=== PATIENT | male | born 1950 | race Caucasian/White ===

== ENCOUNTER → 2020-08-31 10:32 | Outpatient (BNVA) | payer BC, SELFPAY | PROVIDERS: PCP Internal Medicine; Visit Provider Internal Medicine | DX: I48.92 Unspecified atrial flutter (principal); I25.10 Atherosclerotic heart disease of native coronary artery without angina pectoris; I10 Essential (primary) hypertension; E11.8 Type 2 diabetes mellitus with unspecified complications | CPT/HCPCS: 93005 ==

== ENCOUNTER → 2021-08-15 12:52 | Outpatient (REF) | payer MEDICARE, SELFPAY ==
--- NOTE | 2021-08-15 12:55 | CA_ITS ---
Transthoracic Echocardiogram Patient (Last, First, Middle): Ian Chapman, Gender: Male Date of : 1950 Age: 70 Procedure Date: 08/15/2021 Procedure Type: Transthoracic Echocardiogram Location: OP Height: 182.88 cm Weight: 91.63 kg BSA: 2.14 m2 Heart Rate: bpm BP: 147 / 72 mmHg [employer] Processor: SB Referring MD: Rich Mera MD Symptoms: I48.92 - Unspecified atrial flutter Study Quality: Fair ECG Rhythm: Sinus Conclusions: - The left ventricular systolic function is normal. The calculated ejection fraction is 56% by biplane method. - There is severe septal asymmetric hypertrophy. - There is mild calcification of the aortic valve. Findings Left Ventricle Normal left ventricular cavity size. The left ventricular systolic function is normal. The calculated ejection fraction is 56% by biplane method. There is no evidence of regional wall motion abnormalities. E/E prime ratio is between 8 and 15 consistent with indeterminate filling pressures. Evidence suggests grade I (mild) diastolic dysfunction. There is severe septal asymmetric hypertrophy. LV peak GLS -17.5%. Right Ventricle Normal right ventricular cavity size and systolic function. Atria Mild biatrial enlargement. Aortic Valve There is a normal trileaflet aortic valve. There is mild calcification of the aortic valve. There is no aortic valve stenosis. There is no aortic valve regurgitation. Mitral Valve The mitral valve appears normal. There is mild mitral valve regurgitation. There is no mitral valve stenosis. Pulmonic Valve The pulmonic valve is likely normal. Tricuspid Valve Normal tricuspid valve structure. There is no tricuspid valve regurgitation. Tricuspid regurgitation envelope is inadequate for calculation of right ventricular systolic pressure. Great Vessels Ascending aortic size, top normal at 3.9 cm. Venous The inferior vena cava is normal in size and collapses greater than 50% with inspiration. Pericardium/Pleural There is no evidence of pericardial effusion. Prior Study Comparison Changes noted compared to prior study dated: 09/01/2018. Increase in septal wall thickness. Measurements 2D Linear Measurements IVSd: 1.57 0.6-0.9/0.6-1.0 cm LVIDd: 5.08 3.9-5.3/4.2-5.9 cm LVIDd Index: 2.37 2.4-3.2/2.2-3.1 cm/m2 LVIDs: 3.09 2.0-3.6 cm LVPWd: 0.66 0.7-1.1 cm LA Diam: 4.30 2.7-3.8/3.0-4.0 cm LAIDs Index: 2.01 1.5-2.3 cm/m2 LV Mass: 270.40 67-162/88-224 g LV Mass Index: 126.36 43-95/49-115 g/m2 LVOT Diam: 2.00 3.0+(-)1.3 cm 2D Systolic Function EF 4C: 58.50 >55% EF 2C: 50.60 >55% EF BiP: 55.60 >55% Mitral Valve MV Pk E: 0.87 MV PK A: 0.76 MV Decel Time: 181.00 E/A: 1.10 E'Lateral: 8.39 E'Medial: 5.59 E/E' Med: 15.50 E/E' Lat: 10.30 PHT: 53.00 MVA PHT: 4.15 Decel [place]: 4.79 Aortic Valve AoV Pk Armando: 1.42 AoV Mn Armando: 1.08 AoV VTI: 0.33 AoV Pk Grad: 8.00 Aov Mn Grad: 5.00 ROQUE Cont.VTI: 1.85 LVOT LVOT Pk Armando: 0.86 LVOT Mn Armando: 0.64 LVOT VTI: 0.20 LVOT Pk Grad: 3.00 LVOT Mn Grad: 2.00 LVOT Diam: 2.00 LVOT Area: 3.14 Diastolic Function MV Pk E: 0.87 MV Pk A: 0.76 E/A: 1.10 E'Medial: 5.59 E/E' Med: 15.50 E' Laterial: 8.39 E/E' Lat: 10.30 Right Ventricle TAPSE (mm): 33.20 TVS' Armando: 13.40 Tricuspid Valve RA Press: 8.00 Great Vessels Aorta Sinus of Valsalva: 4.23 2.0-3.[address] [place]: 3.66 1.7-3.4 cm Ao Asc: 3.90 2.1-3.4 cm Pulmonary Veins Pulm Vein S/D 0.80 Pulmonary Valve PV Pk Armando: 0.63 Peak PV Grad: 2.00 Updated in Other Vendor System with Status of Final Rich Mera MD electronically signed on 08/16/2021 12:10:01 PM with status of Final
== END ==
LOC: HO.CARD 12:52
PROVIDERS: PCP Internal Medicine; Visit Provider Internal Medicine
DX: I48.92 Unspecified atrial flutter (principal)
CPT/HCPCS: 93306

== ENCOUNTER → 2021-08-31 10:40 | Outpatient (BNVA) | payer MEDICARE, SELFPAY | PROVIDERS: PCP Internal Medicine; Referring Provider Internal Medicine; Visit Provider Internal Medicine | DX: I48.92 Unspecified atrial flutter (principal); I25.10 Atherosclerotic heart disease of native coronary artery without angina pectoris; I10 Essential (primary) hypertension; I42.2 Other hypertrophic cardiomyopathy; E11.8 Type 2 diabetes mellitus with unspecified complications | CPT/HCPCS: 93005; 99212 ==

== ENCOUNTER → 2021-09-13 09:02 | Outpatient (REF) | payer MEDICARE, SELFPAY ==
--- NOTE | ~2021-09-13 | NM_ITS ---
Lexiscan Myocardial perfusion study Indication: Coronary artery disease; assess for ischemia Technique: The patient was brought in for a Lexiscan perfusion study on 09/13/2021 and was injected 0.4 mg of Lexiscan intravenously. Within a minute of this injection 30 mCi of sestamibi was given intravenously. Images were obtained using the SPECT gamma camera interlaced with the gating device. Images were obtained in supine position. Resting perfusion study was performed on 09/14/2021. Patient was administered 30 mCi of sestamibi intravenously at rest. Images were then obtained in supine position. Total DLP 96mGy-cm. Images were processed with the software and compared side to side in short axis, horizontal long axis and vertical long axis views. Findings: Raw acquisition was reviewed. The stress perfusion study showed diminished tracer uptake in the basal part of inferior wall, inferior septum; there is some improvement with CT attenuation correction and hence there could be components of diaphragmatic attenuation artifact. The gated study shows normal LV systolic function with calculated LVEF of 57%. LV cavity is normal in size. The gated study shows basal inferior hypokinesis. Resting study shows diminished tracer uptake in the basal part of inferior wall, inferior septum. There is improvement with CT attenuation correction and hence there could be components of diaphragmatic attenuation artifact. Gating at rest reveals LVEF 47%; basal inferior/inferoseptal hypokinesis. The findings are consistent with fixed defect in the basal inferior wall/inferoseptal wall. There is also improvement with CT attenuation correction. No reversible defects. NM/NM cardiolite stress test Impression: 1. Myocardial perfusion imaging study shows infarction in the basal inferior/inferoseptal wall. No ischemia. 2. Gated LVEF is 57% during stress; 47% during rest. 3. Transient ischemic dilatation not present. EKG component of the test reported separately.
--- NOTE | 2021-09-13 09:05 | CA_ITS ---
Acquisition Time: 2021-09-13 09:24:05 Total Exercise Time: 00:02:00 Test Indications: CAD Medications: SEE CHART Protocol: LEXISCAN Max HR: 085 BPM 57% of Pred: 148 BPM Max BP: 140/074 mmHG Max Work Load: 1.6 METS Pharmacological stress test with Lexiscan injection, while walking slow on treadmill, without anginal symptoms, without arrythmia, with normotensive response to injection, with nondiagnostic EKG for ischemia. Nuclear images pending. Test reviewed with Dr Lau. Referred By: Rich Mera Overread By: ASHER DOCKERY
== END ==
LOC: HO.CARD 09:02
PROVIDERS: PCP Internal Medicine; Visit Provider Internal Medicine
DX: I25.10 Atherosclerotic heart disease of native coronary artery without angina pectoris (principal)
CPT/HCPCS: 78452; 93017; A9500; J2785

== ENCOUNTER → 2022-06-18 14:59 | Outpatient (BNVA) | payer MEDICARE, SELFPAY | PROVIDERS: PCP Internal Medicine; Visit Provider Hospitalist | DX: J84.10 Pulmonary fibrosis, unspecified (principal); J18.9 Pneumonia, unspecified organism; T78.40XA Allergy, unspecified, initial encounter | CPT/HCPCS: 99202 ==

== ENCOUNTER 2022-06-29 10:44 | Outpatient (REF) | payer MEDICARE, SELFPAY ==
[2022-06-29 12:09] LABS: MANUAL DIFF FLAG NO
--- NOTE | 2022-06-29 13:07 | PFT_ITS ---
INDICATION: COPD. SPIROMETRY: FEV1 to FVC of 80% with an FEV1 of 2.67 L, which is 78% predicted and FVC of 3.33 L, which is 71% predicted. No significant response to bronchodilator is noted. To note, the [id number] down to 70% predicted, pre bronchodilators. The maximum voluntary ventilation is 67% predicted. LUNG VOLUMES: Total lung capacity 82% predicted. DIFFUSION CAPACITY: DLCO 55% predicted. COMPARISON: None. INTERPRETATION: No obstructive nor restrictive ventilatory defect identified. No significant response to bronchodilators noted. Although, the patient does have some evidence of small airways disease. In addition to that, there is some mild decrease in maximum voluntary ventilation secondary to likely decondition. Lung volumes are low normal and the patient does have a moderate diffusion impairment. Further imaging studies may be warranted, consider methacholine challenge if a diagnosis of asthma is in the differential. Angel Nixon MD MR/MODL / [id number]
[2022-06-29 14:06] LABS: Basophils Absolute Auto 0.1 X10*3/uL (0.0-0.2); Basophils Percent Auto 1.1 % (0-2); Eosinophils Absolute Auto 0.3 X10*3/uL (0.0-0.4); Eosinophils Percent Auto 4.1 % (0-4); Hematocrit 35.4 % (42.0-52.0); Hemoglobin 12.6 g/dl (14.0-18.0); Imm Gran Abs Auto 0.04 X10*3/uL (0.00-0.03); Imm Gran Pct Auto 0.5 % (0.0-0.4); Lymphocytes Absolute Auto 1.9 X10*3/uL (1.2-4.9); Lymphocytes Percent Auto 22.6 % (20-40); Mean Corpuscular HGB Conc 35.6 g/dl (31.0-36.0); Mean Corpuscular Hemoglobin 31.4 pg (27.0-33.0); Mean Corpuscular Volume 88.3 fL (80.0-98.0); Mean Platelet Volume 11.7 fL (9.4-12.4); Monocytes Absolute Auto 0.8 X10*3/uL (0.1-1.2); Neutrophils Absolute Auto 5.3 x10*3/uL (2.0-8.3); Neutrophils Percent Auto 62.7 % (45-73); Platelet Count 170 X10*3/uL (160-400); Red Blood Count 4.01 X10*6/uL (4.60-5.80); Red Cell Distribution Width 12.7 % (11.0-16.0); White Blood Count 8.4 X10*3/uL (4.8-10.8)
[2022-06-29 14:48] LABS: Erythrocyte Sedimentation Rate 39 MM/HR (0-15)
[2022-07-02 15:28] LABS: Anti Nuclear Antibody Screen NEGATIVE (NEGATIVE)
[2022-07-02 15:59] LABS: Cyclic Citrullinated Peptide <16 UNITS
[2022-07-04 14:33] LABS: IgA 225 mg/dL (70-320); IgG 1299 mg/dL (600-1540); IgM 315 mg/dL (50-300)
== END 2022-06-29 10:45 | disposition home or self-care (01) ==
LOC: HO.RESP 10:44
PROVIDERS: PCP Internal Medicine; Visit Provider Hospitalist
DX: J18.9 Pneumonia, unspecified organism (principal); J84.10 Pulmonary fibrosis, unspecified; T78.40XA Allergy, unspecified, initial encounter
CPT/HCPCS: 36415; 82784; 82785; 85025; 85652; 86003; 86038; 86039; 86200; 94060; 94727; 94729

== ENCOUNTER 2022-07-06 13:01 | Outpatient (REF) | payer MEDICARE, SELFPAY ==
--- NOTE | ~2022-07-06 | CT_ITS ---
EXAMINATION: CT CHEST WITHOUT CONTRAST CLINICAL INFORMATION: Pneumonia COMPARISON: None available. TECHNIQUE: Multidetector volumetric CT imaging of the chest was done. Axial MIP volume rendering provided. Sagittal and coronal reformatted images were obtained. This CT examination was performed using dose optimization techniques as appropriate, variously including the following: *Automated exposure control *Adjustment of mA and/or kV according to patient size (this includes techniques or standardized protocols for targeted exams where dose is matched to indication/reason for exam; i.e. extremities or head) *Use of iterative reconstruction technique DLP: 170 mGy-cm FINDINGS: NEUROSURGEON: The lungs are well inflated with moderate linear opacity right midlung. LUNGS: The lungs are well-expanded with multiple 1 mm noncalcified nodule left upper lobe, axial image 146/5, 4 mm noncalcified nodule right upper lobe axial image 146/5, 1 mm nodules bilateral upper lobes axial image 146/5, 1 mm calcified nodule right upper lobe axial image 204/5, several clusters of 1 cm less nodules with focal parenchymal opacity in the right upper lobe, likely infiltrate. Also visualized are several 1 mm and less calcified nodules in both lower lobes and right middle lobe likely small granulomas. Focal parenchymal opacities seen in the left lung base adjacent to the diaphragm likely infiltrate as well. MEDIASTINUM: The central trachea and bronchi are widely patent. Heart size and the great vessels are normal caliber. No pericardial effusion seen. There are small shotty lymph nodes in the pretracheal space. CORONARY ARTERY CALCIFICATION: Moderate coronary artery calcifications are present. PLEURA: There is no pleural effusion. No pleural mass or thickening. AXILLA: No lymphadenopathy. UPPER ABDOMEN: Visualized liver, spleen, pancreas and bilateral adrenal glands are unremarkable. There are multiple radiopaque gallstones without wall thickening. There is a 2.9 cm cyst upper midpole right kidney. OSSEOUS STRUCTURES: No aggressive lytic or sclerotic process seen. CT/CT chest wo IV con IMPRESSION: 1. Multiple bilateral calcified and noncalcified pulmonary nodules. The largest noncalcified nodule measures 4 mm in the right upper lobe. 2. There are focal parenchymal opacities in the right lower lobe and left lower lobe adjacent to the diaphragm likely infiltrates. 3. No abnormal mediastinal or axillary lymphadenopathy seen. 4. Cholelithiasis without wall thickening. 5. Right renal cyst. Fleischner guidelines were followed.
== END 2022-07-06 13:02 | disposition home or self-care (01) ==
LOC: HO.CT 13:01
PROVIDERS: PCP Internal Medicine; Visit Provider Hospitalist
DX: J18.9 Pneumonia, unspecified organism (principal)
CPT/HCPCS: 71250

== ENCOUNTER → 2022-07-27 14:30 | Outpatient (BNVA) | payer MEDICARE, SELFPAY | PROVIDERS: PCP Internal Medicine; Visit Provider Hospitalist | DX: J84.10 Pulmonary fibrosis, unspecified (principal); J18.9 Pneumonia, unspecified organism; T78.40XA Allergy, unspecified, initial encounter | CPT/HCPCS: 99212 ==

== ENCOUNTER → 2022-09-06 10:45 | Outpatient (BNVA) | payer MEDICARE, SELFPAY | PROVIDERS: PCP Internal Medicine; Referring Provider Internal Medicine; Visit Provider Internal Medicine | DX: I48.92 Unspecified atrial flutter (principal); I25.10 Atherosclerotic heart disease of native coronary artery without angina pectoris; I42.2 Other hypertrophic cardiomyopathy; I10 Essential (primary) hypertension; E11.8 Type 2 diabetes mellitus with unspecified complications; Z79.01 Long term (current) use of anticoagulants; Z79.84 Long term (current) use of oral hypoglycemic drugs; Z79.899 Other long term (current) drug therapy | CPT/HCPCS: 93005; 99212 ==

== ENCOUNTER 2022-09-11 14:49 | Outpatient (REF) | payer MEDICARE, SELFPAY ==
--- NOTE | ~2022-09-11 | XR_ITS ---
EXAMINATION: XR CHEST CLINICAL INFORMATION: Pneumonia COMPARISON: Previous chest x-ray July [address] June 2022 TECHNIQUE: 2 views of the chest were obtained. FINDINGS: The cardiac and mediastinal contours are stable. There is improving atelectasis or infiltrate seen in the right upper lobe and left lower lobe compared to recent chest CT. No new infiltrate. The lungs are otherwise clear. No pleural effusion or pneumothorax. Mild degenerative changes of the spine. Air-filled distended loops of bowel seen in the upper abdomen. XR/XR chest 2V IMPRESSION: Improving infiltrates in the right upper and left lower lobes compared to June [address]
== END 2022-09-11 14:50 | disposition home or self-care (01) ==
LOC: HO.XRAY 14:49
PROVIDERS: Visit Provider Hospitalist
DX: J18.9 Pneumonia, unspecified organism (principal)
CPT/HCPCS: 71046

== ENCOUNTER 2022-09-20 12:49 | Outpatient (REF) | payer MEDICARE, SELFPAY ==
[2022-09-20 13:33] LABS: Hematocrit 33.9 % (42.0-52.0); Hemoglobin 12.1 g/dl (14.0-18.0); Mean Corpuscular HGB Conc 35.7 g/dl (31.0-36.0); Mean Corpuscular Hemoglobin 31.5 pg (27.0-33.0); Mean Corpuscular Volume 88.3 fL (80.0-98.0); Mean Platelet Volume 11.8 fL (9.4-12.4); Platelet Count 162 X10*3/uL (160-400); Red Blood Count 3.84 X10*6/uL (4.60-5.80); Red Cell Distribution Width 13.1 % (11.0-16.0); White Blood Count 9.7 X10*3/uL (4.8-10.8)
[2022-09-20 13:41] LABS: INTERNATIONAL NORM RATIO 1.2 (0.9-1.1)
[2022-09-20 14:00] LABS: Anion Gap 13 (12-20); Blood Urea Nitrogen 29 mg/dL (9-16); Calcium 9.5 mg/dL (8.4-10.2); Carbon Dioxide 26 mmol/L (22-29); Chloride 104 mmol/L (96-108); Estimated Glomerular Filt Rate 41; Glucose Random 148 mg/dL (60-115); Potassium 4.2 mmol/L (3.3-5.1); Sodium 139 mmol/L (135-145)
== END 2022-09-20 12:50 | disposition home or self-care (01) ==
LOC: HO.LAB 12:49
PROVIDERS: PCP Internal Medicine; Visit Provider Internal Medicine
DX: I25.10 Atherosclerotic heart disease of native coronary artery without angina pectoris (principal)
CPT/HCPCS: 36415; 80048; 85027; 85610

== ENCOUNTER → 2022-10-12 07:52 | Outpatient (REF) | payer MEDICARE, SELFPAY ==
--- NOTE | 2022-10-12 07:56 | CA_ITS ---
Transthoracic Echocardiogram Patient (Last, First, Middle): Ian Chapman C Gender: Male Date of : 1950 Age: 72 Procedure Date: 10/12/2022 Procedure Type: Transthoracic Echocardiogram Location: OP Height: 182.88 cm Weight: 91.17 kg BSA: 2.13 m2 Heart Rate: 59 bpm BP: 130 / 70 mmHg Director [employer]: SB Referring MD: Rich Mera MD Symptoms: I25.10 - Atherosclerotic heart disease of [place] coronary artery without... Study Quality: Fair ECG Rhythm: Bradycardia Conclusions: - The left ventricular systolic function is normal. The calculated ejection fraction is 57% by biplane method. - The basal inferior and basal inferolateral segments are hypokinetic. - No obvious valvular pathology seen on this study. Findings Procedure Information The quality of the study was technically difficult. The study quality is limited by patients body habitus. Left Ventricle Normal left ventricular cavity size. The left ventricular systolic function is normal. The calculated ejection fraction is 57% by biplane method. There is evidence of regional wall motion abnormalities. Diastolic function is normal for age. There is severe septal and severe basal asymmetric hypertrophy. LV peak GLS -16.3%. Wall Motion Rest Echo Findings The basal inferior and basal inferolateral segments are hypokinetic. Right Ventricle Normal right ventricular cavity size and systolic function. Atria Both atria are normal in size. Aortic Valve There is a normal trileaflet aortic valve. There is mild calcification of the aortic valve. There is no aortic valve regurgitation. Mitral Valve The mitral valve appears normal. There is trace mitral valve regurgitation. There is no mitral valve stenosis. Pulmonic Valve The pulmonic valve is likely normal. Tricuspid Valve Normal tricuspid valve structure. There is no tricuspid valve regurgitation. Tricuspid regurgitation envelope is inadequate for calculation of right ventricular systolic pressure. Great Vessels The asc aorta is normal in size. There is mild dilatation of the ascending aorta measuring 3.90 cm. Venous The inferior vena cava is normal in size and collapses greater than 50% with inspiration. Pericardium/Pleural There is no evidence of pericardial effusion. Prior Study Comparison No significant change compared to prior study dated: 08/15/2021. (images reviewed). Recommendations, Care & Conclusions No obvious valvular pathology seen on this study. Measurements 2D Linear Measurements IVSd: 1.34 0.6-0.9/0.6-1.0 cm LVIDd: 4.67 3.9-5.3/4.2-5.9 cm LVIDd Index: 2.19 2.4-3.2/2.2-3.1 cm/m2 LVIDs: 3.25 2.0-3.6 cm LVPWd: 0.64 0.7-1.1 cm LA Diam: 4.60 2.7-3.8/3.0-4.0 cm LAIDs Index: 2.16 1.5-2.3 cm/m2 LV Mass: 200.06 67-162/88-224 g LV Mass Index: 93.92 43-95/49-115 g/m2 LVOT Diam: 2.40 3.0+(-)1.3 cm 2D Systolic Function EF 4C: 59.10 >55% EF 2C: 56.70 >55% EF BiP: 57.30 >55% Mitral Valve MV VTI: 0.30 MV Pk Armando: 0.91 MV Mn Armando: 0.60 MV Pk Grad: 3.00 MV Mn Grad: 2.00 MV Pk E: 0.82 MV PK A: 0.91 MV Decel Time: 241.00 E/A: 0.90 E'Lateral: 7.07 E'Medial: 7.51 E/E' Med: 10.90 E/E' Lat: 11.60 PHT: 71.00 MVA PHT: 3.10 MVA Continuity: 3.60 Decel [place]: 3.40 Aortic Valve AoV Pk Armando: 1.63 AoV Mn Armando: 1.14 AoV VTI: 0.39 AoV Pk Grad: 11.00 Aov Mn Grad: 6.00 ROQUE Cont.VTI: 2.79 LVOT LVOT Pk Armando: 1.02 LVOT Mn Armando: 0.71 LVOT VTI: 0.24 LVOT Pk Grad: 4.00 LVOT Mn Grad: 2.00 LVOT Diam: 2.40 LVOT Area: 4.52 Diastolic Function MV Pk E: 0.82 MV Pk A: 0.91 E/A: 0.90 E'Medial: 7.51 E/E' Med: 10.90 E' Laterial: 7.07 E/E' Lat: 11.60 Right Ventricle TAPSE (mm): 20.90 TVS' Armando: 14.50 Tricuspid Valve RA Press: 3.00 Great Vessels Aorta Sinus of Valsalva: 4.40 2.0-3.5 cm Ao Asc: 3.90 2.1-3.4 cm Pulmonary Veins Pulm Vein S/D 1.30 Pulmonary Valve PV Pk Armando: 0.99 Peak PV Grad: 4.00 Updated in Other Vendor System with Status of Final Rich Mera MD electronically signed on 10/14/2022 9:32:57 AM with status of Final
== END ==
LOC: HO.CARD 07:52
PROVIDERS: PCP Internal Medicine; Visit Provider Internal Medicine
DX: I25.10 Atherosclerotic heart disease of native coronary artery without angina pectoris (principal)
CPT/HCPCS: 93306; 93356

== ENCOUNTER 2022-10-17 09:40 | Outpatient (REF) | payer MEDICARE, SELFPAY ==
--- NOTE | ~2022-10-17 | US_ITS ---
EXAMINATION: US LOWER EXTREMITY VENOUS (REFLUX EXAM), BILATERAL CLINICAL INDICATION: Venous insufficiency COMPARISON: None. TECHNIQUE: Color flow triplex imaging and compression Doppler was performed to evaluate both the deep and the superficial systems bilaterally. To evaluate the superficial system, the examination was performed in the upright position. Color-flow Doppler ultrasound and compression ultrasound were utilized. In addition, maneuvers were utilized to demonstrate reflux. FINDINGS: RIGHT: 1. DEEP VENOUS ULTRASOUND OF THE RIGHT LOWER EXTREMITY: Common Femoral Vein: Compressible, normal respiratory variation and augmented flow. Popliteal Vein: Compressible, normal augmentation. Deep Venous Reflux: There is no evidence of reflux in the deep system in either the common femoral vein or the popliteal vein. There is no evidence of a Christopher's cyst. 2. SUPERFICIAL ULTRASOUND WITH DOPPLER OF RIGHT LOWER EXTREMITY: RIGHT GREAT SAPHENOUS VEIN: Saphenofemoral Junction: 7 mm. No reflux. Proximal Thigh: 5 mm. No reflux. Mid Thigh: 3 mm. 35165 ms reflux. Above Knee: 3 mm. 57567 ms reflux. Below Knee: 4 mm. 16385 ms reflux. Mid Calf: 2 mm. No reflux. Ankle: 3 mm. 864 reflux. DUPLICATED GREAT SAPHENOUS VEIN: Yes, lateral Saphenofemoral junction: 2 mm. No reflux Mid thigh: 2 mm. 84 ms of reflux. RIGHT SMALL SAPHENOUS VEIN: Proximal: 3 mm. No reflux. Distal: 3 mm. No reflux. Scattered calcifications present. PERFORATORS: None LEFT: 1. DEEP VENOUS ULTRASOUND OF THE LEFT LOWER EXTREMITY: Common Femoral Vein: Compressible, normal respiratory variation and augmented flow. Popliteal Vein: Compressible, normal augmentation. Deep Venous Reflux: There is no evidence of reflux in the deep system in either the common femoral vein or the popliteal vein. There is no evidence of a Christopher's cyst. 2. SUPERFICIAL ULTRASOUND WITH DOPPLER OF LEFT LOWER EXTREMITY: LEFT GREAT SAPHENOUS VEIN: Saphenofemoral Junction: 8 mm. No reflux. Proximal Thigh: 7 mm. No reflux. Mid Thigh: 2 mm. No reflux. Above Knee: 2 mm. No reflux. Below Knee: 5 mm. No reflux. Mid Calf: 2 mm. No reflux. Ankle: 2 mm. No reflux. DUPLICATED GREAT SAPHENOUS VEIN: Yes, laterally Saphenofemoral junction: 4 mm. No reflux Mid thigh: 2 mm. No reflux LEFT SMALL SAPHENOUS VEIN: Proximal: 3 mm. No reflux. Distal: 3 mm. No reflux. Scattered calcifications present. PERFORATORS: None US/US venous duplex LE BI IMPRESSION: 1. Abnormally prolonged venous reflux within the right great saphenous and lateral accessory saphenous veins. 2. No evidence of DVT, bilaterally. Abnormal lower extremity venous reflux times: Superficial and deep calf veins: >500 ms Femoropopliteal veins: >1000 ms Perforating veins: >350 ms Derrek N, Surya J, Rob L, Estefania AK, Rojas SS, Geo Kearney M, Candi WH. Definition of venous reflux in lower-extremity veins.J Vasc Surg. 2003; [phone]:[id number].
--- NOTE | ~2022-10-17 | US_ITS ---
EXAMINATION: US EXTRACRANIAL CAROTID DUPLEX, BILATERAL CLINICAL INFORMATION: Carotid bruit. COMPARISON: None available. TECHNIQUE: Real-time ultrasound and Doppler techniques (integrating B-mode 2-D vascular images, Doppler spectral analysis and color-flow Doppler imaging) were utilized to interrogate the extracranial carotid arteries, the vertebral arteries and proximal subclavian arteries bilaterally. The degree of stenosis is determined by criteria similar to NASCET. FINDINGS: Right Side: 1. There is mild atherosclerotic plaque seen in the bifurcation/proximal ICA region. 2. The common carotid artery PSV proximally is 65 cm/s and distally 45 cm/s. 3. The proximal internal carotid artery velocities are 36 cm/s systolic and 11 cm/s diastolic. 4. The proximal external carotid artery PSV is 69 cm/s. 5. The vertebral artery shows antegrade flow. 6. The subclavian artery waveforms are normal. Left Side: 1. There is mild atherosclerotic plaque seen in the bifurcation/proximal ICA region. 2. The common carotid artery PSV proximally is 67 cm/s and distally 53 cm/s. 3. The proximal internal carotid artery velocities are 29 cm/s systolic and 10 cm/s diastolic. 4. The proximal external carotid artery PSV is 76 cm/s. 5. The vertebral artery shows antegrade flow. 6. The subclavian artery waveforms are normal. US/US carotid duplex BI IMPRESSION: RIGHT: Minimal, non-hemodynamically significant stenosis of the proximal right internal carotid artery corresponding to a 0-49% stenosis by velocity criteria. Velocity in the ICA is low. LEFT: Minimal, non-hemodynamically significant stenosis of the proximal left internal carotid artery corresponding to a 0-49% stenosis by velocity criteria. Velocity in the ICA is low.
== END 2022-10-17 09:41 | disposition home or self-care (01) ==
LOC: HO.US 09:40
PROVIDERS: PCP Internal Medicine; Visit Provider Thoracic Surgery (Cardiothoracic Vascular Surgery)
DX: I87.2 Venous insufficiency (chronic) (peripheral) (principal); R09.89 Other specified symptoms and signs involving the circulatory and respiratory systems
CPT/HCPCS: 93880; 93970

== ENCOUNTER 2022-12-31 13:13 | Outpatient (AMB) | payer MEDICARE, SELFPAY ==
[2022-12-31 13:32] VITALS: BP 120/42; PULSE 74; BMI 25.0
--- NOTE | 2022-12-31 13:32 | MHC.OFFVIS ---
Intake Vital Signs 12/31/22 13:32 Height 6 ft Weight 184 lb 4.903 oz BMI 25.0 BP 120/42 L Blood Pressure Location Rt brachial Position Sitting Pulse 74 Intake Visit Reasons: [facility] surgery 11/26/22. Intake Note: [facility] surgery Chairman And Ceo Required: No Allergies fluticasone [From Flonase] Allergy (Unknown, Verified 12/31/22 13:38) unknown lisinopril Adverse Reaction (Unknown, Verified 12/31/22 13:38) cough STEROIDS Adverse Reaction (Unknown, Uncoded 09/06/22 10:52) TACHYCARDIA Medication List - Last Reconciled 12/31/22 by Tere Stafford, CHIP TESTER-C apixaban (Eliquis) 5 mg PO BID 90 days aspirin 81 mg PO DAILY atorvastatin 40 mg PO DAILY dulaglutide 0.75 mg subcut QWEEK levothyroxine 88 mcg PO DAILY metformin 1,000 mg PO BID metoprolol tartrate 25 mg PO BID omega-3 fatty acids (Fish Oil Concentrate) 1,000 mg PO DAILY HPI [facility] surgery 11/26/22. HPI Details Pk is a 72-year-old male with past medical history of hypertension, mild diabetes, paroxysmal atrial flutter, who had reported chest discomfort then underwent a nuclear stress test which was abnormal. He eventually had diagnostic cardiac catheterization showing significant coronary artery disease. On 11/26/2022 he underwent a 4 vessel Coronary artery bypass grafting and PFO closure. Surgery he had some mild MANSI I on top of his baseline chronic kidney disease. He has since been seen in follow-up by Dr. Velazco and released from his surgeons care. Today he reports that he has been doing generally well. He does notice fatigue and needing to rest frequently throughout the day. He is not having anterior chest discomfort. He has some itchiness around his incisions. No shortness of breath, PND, orthopnea or edema. No presyncope, syncope, falls. He is taking his meds as directed. He is starting cardiac rehab at [facility]. His son drove him to this appointment today. [facility] Medical History Pulmonary fibrosis Pneumonia Allergies Atherosclerotic cardiovascular disease Type 2 diabetes mellitus with unspecified complications Essential hypertension Paroxysmal atrial flutter Surgical History (Updated 12/31/22 @ 16:10 by ORA Kolb) S/P cardiac catheterization S/P CABG x 4 History of hernia repair Family History Father Sudden cardiac CVD (cardiovascular disease) Mother No problems noted. Social History Household Members: Spouse Patient Tobacco Use Status: Former Tobacco user Years Smoked: 40 Years Review of Systems Const Details: Fatigue Mild weakness All systems reviewed & are unremarkable except as noted in HPI and below ENT Denies dizziness Card Denies chest pain, Denies chest pain at rest, Denies chest pain with activity, Denies rapid heart rate, Denies pedal edema, Denies edema, Denies leg edema, Denies lightheadedness, Denies palpitations, Denies dyspnea, Denies dyspnea on exertion and Denies orthopnea Resp Denies cough, Denies dyspnea and Denies dyspnea on exertion GI Denies hematochezia and Denies change in stool character Musc Denies abnormal gait, Denies limited range of motion, Denies muscle cramps, Denies muscle weakness, Denies numbness, Denies radiating pain into limb, Denies stiffness and Denies tingling Neuro Denies abnormal gait, Denies dizziness, Denies numbness and Denies tingling Endo Denies palpitations Physical Exam Vital Signs: Last Vital Signs Pulse 74 12/31/22 13:32 BP 120/42 L 12/31/22 13:32 BMI result Body Mass Index 25.0 Const General: cooperative, healthy appearing, comfortable and no acute distress Orientation/consciousness: patient oriented x3 Neck Neck: Yes normal visual inspection and Yes no JVD Chest Other: Sternal incision and drain sites well approximated, no redness, swelling, drainage. Resp Effort & Inspection: normal respiratory effort Auscultation: clear to auscultation bilaterally, no crackles, no rales, no rhonchi and no wheezes Cardio Jugular venous distension: no JVD Rate: regular rate Rhythm: regular rhythm Heart sounds: S1 normal heart sound present, S2 normal heart sound present, no murmurs and no rubs Skin Other: Graft sites right leg well approximated, no signs of infection Neuro General: patient oriented x3 Extrem General: Yes normal to inspection and No no pedal edema Psych Appearance: grossly normal Mental Status: mental status grossly normal Speech and movement: Normal speech and movement present Assessment & Plan Assessment & Plan (1) Atherosclerotic cardiovascular disease: Code(s): I25.10 - Atherosclerotic heart disease of [place] coronary artery without angina pectoris Plan: On last visit in August he reported some chest tightness at different times. He did have a prior nuclear stress test in 2021 which showed basal inferior and inferior septal infarct. His EKG last visit showed sinus bradycardia with incomplete right bundle branch block, no significant ST or T-wave abnormalities. He had cardiac risk factors of hypertension, hyperlipidemia and diabetes. He then underwent a diagnostic cardiac catheterization on 09/25/2022 showing severe 3 vessel coronary artery disease and he was referred to CT surgery for Coronary artery bypass grafting. He underwent 4 vessel coronary artery bypass grafting with PFO closure on 11/26/2022. He has done well in his recovery period. At this time his primary complaint is of fatigue. He saw his surgeon on 12/17/2022 and was cleared to follow with General Cardiology. His sternal incision is healing quite well. He begins cardiac rehab soon at [facility]. Pulse is normal-sounding on examination, no concern for atrial flutter at present. Will arrange for echocardiogram in 2 weeks to assess EF and wall motion. He will continue on current med management including aspirin, Eliquis, atorvastatin 40 mg daily, metoprolol 25 mg b.i.d. cardiology office visit in 2-3 months, sooner if needed to discuss echo results and overall progress. (2) S/P CABG x 4: Comment: 11/26/2022, gonsales to LAD, GSV to PDA, om branch, ramus, PFO closure Code(s): Z95.1 - Presence of aortocoronary bypass graft (3) S/P cardiac catheterization: Comment: 09/25/2022 severe 3 vessel disease, referred to CT surgery for Coronary artery bypass grafting Code(s): Z98.890 - Other specified postprocedural states (4) Essential hypertension: Code(s): I10 - Essential (primary) hypertension Plan: Well controlled at present. No med changes made (5) Type 2 diabetes mellitus with unspecified complications: Code(s): E11.8 - Type 2 diabetes mellitus with unspecified complications Plan: Hemoglobin A1c goal less than 7. Followed by PCP Orders: Orders CA echo transthoracic complete 2 Weeks Z95.1 - Presence of aortocoronary bypass graft Coding Level of Care Code Est Pt Level 4 (64039) Diagnoses Atherosclerotic cardiovascular disease I25.10 S/P CABG x 4 Z95.1 S/P cardiac catheterization Z98.890 Essential hypertension I10 Type 2 diabetes mellitus with unspecified complications E11.8 Time Spent (min) 30
== END 2022-12-31 14:04 | disposition home or self-care (01) ==
PROVIDERS: PCP Internal Medicine; Referring Provider Internal Medicine; Visit Provider Nurse Practitioner Family
DX: I25.10 Atherosclerotic heart disease of native coronary artery without angina pectoris (principal); Z95.1 Presence of aortocoronary bypass graft; Z98.890 Other specified postprocedural states; I10 Essential (primary) hypertension; E11.8 Type 2 diabetes mellitus with unspecified complications
CPT/HCPCS: 99214

== ENCOUNTER → 2022-12-31 13:13 | Outpatient (BNVA) | payer MEDICARE, SELFPAY | PROVIDERS: PCP Internal Medicine; Referring Provider Internal Medicine; Visit Provider Nurse Practitioner Family | DX: I25.10 Atherosclerotic heart disease of native coronary artery without angina pectoris (principal); I10 Essential (primary) hypertension; E11.8 Type 2 diabetes mellitus with unspecified complications; Z79.01 Long term (current) use of anticoagulants; Z79.82 Long term (current) use of aspirin; Z79.899 Other long term (current) drug therapy; Z95.1 Presence of aortocoronary bypass graft | CPT/HCPCS: 99212 ==

== ENCOUNTER 2023-01-18 12:57 | Outpatient (AMB) | payer MEDICARE, SELFPAY ==
[2023-01-18 13:02] VITALS: PULSE 75; O2SAT 98; BMI 25.0
--- NOTE | 2023-01-18 13:02 | MHC.OFFVIS ---
Intake Vital Signs 01/18/23 13:02 Height 6 ft Weight 184 lb BMI 25.0 Pulse 75 Pulse Source Pulse Oximeter Pulse Oximetry (%) 98 Oxygen Delivery Method Room Air Intake Visit Reasons: COPD Christian Counselor Required: No Allergies fluticasone [From Flonase] Allergy (Unknown, Verified 01/18/23 13:03) unknown lisinopril Adverse Reaction (Unknown, Verified 01/18/23 13:03) cough STEROIDS Adverse Reaction (Unknown, Uncoded 01/18/23 13:03) TACHYCARDIA HPI HPI Comments History of Present Illness Details The patient is a 72-year-old gentleman with a known history of diabetes in addition to atrial fibrillation who apparently was in his usual state health until the last year. He started developing a cough. Back in August the patient did have imaging studies done at [place]. Apparently the x-ray was abnormal and the patient underwent a CT scan of the chest demonstrating multilobar patchy consolidations. He was treated with antibiotics at the time and had a follow-up CT scan sometime in November. Again the CT scan demonstrates similar findings with persistent airspace disease. Therefore he was given additional antibiotics. He did follow-up with his kidney doctor was concerned about the different antibiotics in the potential renal consequences. He continues with a cough. The cough problem most part is nonproductive in nature moderate severity. He has not had any imaging studies since November. We talked about different etiologies that can result in a consolidation both infectious versus noninfectious etiologies. Therefore will request additional blood work at this point. Still the patient will benefit from getting a repeat CT scan. If she still has the patchy areas of consolidations a bronchoscopy will be important to assess the airways and assess for deep cultures to rule out smoldering infections and also to further address the question of noninfectious pneumonia such as cryptogenic organizing pneumonia he denies any rashes or any arthritic disease or any other symptoms that may be typical of a connective tissue disease. 07/27/2022 the patient is here for a pulmonary follow-up visit. The patient is overall doing well he does have a cough at times but not significant. He is not taking any medications at this time. He did undergo the CT scan of the chest in here for follow-up. He still has this abnormal looking patchy consolidation on the right hemithorax. Again very suspicious for cryptogenic organizing pneumonia. The patient does not appear to be take eating any concerning medications that could result in pulmonary changes. The patient is white count is normal we also assessed 10 for connective tissue conditions and also immuno logical conditions. Without any significant explanation for this ongoing process. I did recommend empiric prednisone to try to minimize the inflammation indeed if this is a inflammatory process such as cryptogenic organizing pneumonia. However, the patient has an adverse effect. Therefore, we can either try low-dose amount of cortical steroid or consider a diagnostic bronchoscopy to address that area. Indeed the abnormal finding in view of the persistence could also be due to a smoldering malignant process that may be evolving. Therefore id other day diagnostic intervention may be warranted. The patient however has AFib and also is on Eliquis. He did ask me to speak to his band saw marker before making any decisions. 01/18/2023 the patient is here for a pulmonary follow-up visit. Better from a respiratory status. He did take empiric prednisone with good effect. Subsequent repeat chest x-ray demonstrates interval improvement of the airspace disease. Denies any chest pain or significant cough. Overall he does not have any respiratory limitations. In review of the CT scan that he had back in June 2022 along with the interstitial lung disease the patient did have pulmonary nodules. Therefore will plan to repeat the CT scan in 6 months should be year from his last 1 to follow-up with the pulmonary nodules and also to reassess the interstitial lung changes. If the patient develops any worsening symptoms prior to that he is to call for an earlier assessment. [facility] Medical History (Updated 01/20/23 @ 22:51 by Angel Nixon MD) Pulmonary nodules Pulmonary fibrosis Pneumonia Allergies Atherosclerotic cardiovascular disease Type 2 diabetes mellitus with unspecified complications Essential hypertension Paroxysmal atrial flutter Surgical History (Updated 12/31/22 @ 16:10 by Tere Stafford, FIRST OFFICER-C) S/P cardiac catheterization S/P CABG x 4 History of hernia repair Family History Father Sudden cardiac CVD (cardiovascular disease) Mother No problems noted. Social History Household Members: Spouse Patient Tobacco Use Status: Former Tobacco user Years Smoked: 40 Years Review of Systems Const Denies fever(s) Eyes Denies change in vision ENT Denies lip swelling and Denies nasal discharge Card Denies chest pain Resp Denies chest congestion, Reports cough and Denies hemoptysis GI Reports no additional complaints Musc Reports no additional complaints Skin/Breast Denies rash Neuro Reports no additional complaints Anuj/Lymph Denies easy bruising and Denies lymphadenopathy Aller/Immun Denies lip swelling Physical Exam Vital Signs: Last Vital Signs Pulse 75 01/18/23 13:02 Pulse Ox 98 01/18/23 13:02 Oxygen Delivery Method Room Air 01/18/23 13:02 BMI result Body Mass Index 25.0 Const General: comfortable HEENT Head: Yes normocephalic Eyes General: appearance normal, both eyes and all related structures Neck Neck: Yes supple Chest Chest palpation & inspection: normal inspection of the chest Resp Effort & Inspection: normal respiratory effort Auscultation: clear to auscultation bilaterally, no rales, no rhonchi and no wheezes Cardio Rate: regular rate Heart sounds: S1 normal heart sound present and S2 normal heart sound present GI Palpation (GI): Soft to palpation Skin General skin exam: no rashes or lesions noted Extrem General: Yes no clubbing, cyanosis or edema Assessment & Plan Assessment & Plan (1) Pulmonary fibrosis: Code(s): J84.10 - Pulmonary fibrosis, unspecified (2) Pneumonia: Code(s): J18.9 - Pneumonia, unspecified organism Qualifiers: Laterality: bilateral Lung location: unspecified part of lung Pneumonia type: due to unspecified organism Qualified Code(s): J18.9 - Pneumonia, unspecified organism (3) Allergies: Code(s): T78.40XA - Allergy, unspecified, initial encounter Qualifiers: Encounter type: initial encounter Qualified Code(s): T78.40XA - Allergy, unspecified, initial encounter (4) Pulmonary nodules: Code(s): R91.8 - Other nonspecific abnormal finding of lung field Plan Ct chest 06/2023 F/U in 6 months Coding Level of Care Code Est Pt Level 4 (94911) Diagnoses Pulmonary fibrosis J84.10 Pneumonia of both lungs due to infectious organism, unspecified part of lung J18.9 Laterality: bilateral Lung location: unspecified part of lung Pneumonia type: due to unspecified organism Allergy, initial encounter T78.40XA Encounter type: initial encounter Pulmonary nodules R91.8 Time Spent (min) 17
== END 2023-01-18 13:19 | disposition home or self-care (01) ==
PROVIDERS: PCP Internal Medicine; Visit Provider Hospitalist
DX: J84.10 Pulmonary fibrosis, unspecified (principal); J18.9 Pneumonia, unspecified organism; T78.40XA Allergy, unspecified, initial encounter; R91.8 Other nonspecific abnormal finding of lung field
CPT/HCPCS: 99214

== ENCOUNTER → 2023-01-18 12:57 | Outpatient (BNVA) | payer MEDICARE, SELFPAY | PROVIDERS: PCP Internal Medicine; Visit Provider Hospitalist | DX: J84.10 Pulmonary fibrosis, unspecified (principal); J18.9 Pneumonia, unspecified organism; R91.8 Other nonspecific abnormal finding of lung field; T78.40XA Allergy, unspecified, initial encounter | CPT/HCPCS: 99212 ==

== ENCOUNTER → 2023-01-31 11:39 | Outpatient (REF) | payer MEDICARE, SELFPAY ==
--- NOTE | 2023-01-31 11:41 | HM_ITS ---
Conclusion: 1. Patient was monitored for total period of 7 days 2. Baseline was normal sinus rhythm with average heart of 67 beats per minute 3. Rare ectopy noted 4. No significant pauses noted 5. No patient reported events MTDD
== END ==
LOC: HO.CARD 11:39
PROVIDERS: PCP Internal Medicine; Visit Provider Internal Medicine
DX: I48.91 Unspecified atrial fibrillation (principal)
CPT/HCPCS: 93242

== ENCOUNTER → 2023-01-31 11:41 | Outpatient (BNV) | payer MEDICARE, SELFPAY | PROVIDERS: PCP Internal Medicine; Visit Provider Internal Medicine Cardiovascular Disease | DX: I48.91 Unspecified atrial fibrillation (principal) | CPT/HCPCS: 93244 ==

== ENCOUNTER 2023-03-11 15:00 | Outpatient (AMB) | payer MEDICARE, SELFPAY ==
[2023-03-11 15:10] VITALS: BP 160/82; PULSE 61; BMI 25.1
--- NOTE | 2023-03-11 15:10 | A.OFFVIS_ITS ---
Intake Vital Signs 03/11/23 15:10 Height 6 ft Weight 185 lb 3.013 oz BMI 25.1 BP 160/82 H Blood Pressure Location Lt brachial Position Sitting Pulse 61 Intake Visit Reasons: follow up w/ EKG Intake Note: follow up w/ EKG Support Merchandiser Required: No Accompanied by: Self / Same As Patient Allergies fluticasone [From Flonase] Allergy (Unknown, Verified 03/11/23 15:12) unknown lisinopril Adverse Reaction (Unknown, Verified 03/11/23 15:12) cough STEROIDS Adverse Reaction (Unknown, Uncoded 03/11/23 15:12) TACHYCARDIA Medication List - Last Reconciled 03/11/23 by Rich Mera MD apixaban (Eliquis) 5 mg PO BID 90 days aspirin 81 mg PO DAILY atorvastatin 40 mg PO DAILY dulaglutide 0.75 mg subcut QWEEK levothyroxine 88 mcg PO DAILY metformin 1,000 mg PO BID metoprolol tartrate 25 mg PO BID omega-3 fatty acids (Fish Oil Concentrate) 1,000 mg PO DAILY HPI HPI Comments History of Present Illness Details Ian returns for follow-up. In the past, he was followed for paroxysmal atrial flutter but he has not had any recent episodes many years. He was maintained on beta-blockers and Eliquis. He was having some chest discomfort that led to further workup and eventually to cardiac catheterization followed by bypass surgery. Postoperatively, it seems that he had another hospitalization for duodenal ulcer and was significantly anemic down to almost 5. After that, anticoagulation was held as he was still anemic. Today, patient had called stating that he was feeling fluttering in the chest resembling atrial fibrillation. Hence was seen back in follow-up urgently. However, EKG right now shows just sinus rhythm even though he feels something is wrong the rhythm. Apparently, whenever he puts the pulse ox on his finger it shows erratic heart rates. Hence not clear if he is just having ectopy or not. Recent Holter was unremarkable. [facility] Medical History (Updated 03/11/23 @ 15:42 by Rich Mera MD) Pulmonary nodules Pulmonary fibrosis Pneumonia Allergies Atherosclerotic cardiovascular disease Type 2 diabetes mellitus with unspecified complications Essential hypertension Paroxysmal atrial flutter Surgical History S/P cardiac catheterization S/P CABG x 4 History of hernia repair Family History Father Sudden cardiac CVD (cardiovascular disease) Mother No problems noted. Social History Household Members: Spouse Patient Tobacco Use Status: Former Tobacco user Years Smoked: 40 Years Review of Systems Const Denies weakness ENT Denies dizziness Card Denies chest pain, Denies chest pain with activity, Denies syncope, Denies rapid heart rate, Denies pedal edema, Denies edema, Denies leg edema, Denies lightheadedness, Denies palpitations, Denies dyspnea, Denies dyspnea on exertion and Denies orthopnea Resp Denies cough, Denies dyspnea and Denies dyspnea on exertion GI Denies hematochezia and Denies change in stool character Musc Denies abnormal gait, Denies muscle cramps, Denies muscle weakness, Denies numbness, Denies radiating pain into limb and Denies tingling Neuro Denies abnormal gait, Denies dizziness, Denies syncope, Denies numbness, Denies tingling and Denies weakness Endo Denies palpitations Physical Exam Vital Signs: Last Vital Signs Pulse 61 03/11/23 15:10 BP 160/82 H 03/11/23 15:10 BMI result Body Mass Index 25.1 Const General: comfortable and no acute distress Orientation/consciousness: patient oriented x3 HEENT Other: Unremarkable Head: Yes normal to inspection Neck Neck: Yes normal visual inspection Chest Chest palpation & inspection: normal inspection of the chest Resp Auscultation: clear to auscultation bilaterally Cardio Palpation: normal PMI Heart sounds: S1 normal heart sound present, S2 normal heart sound present, no gallops, no murmurs and no rubs GI Palpation (GI): Soft to palpation Back/Spine/Pelvis Other: unremarkable Skin General skin exam: no rashes or lesions noted Neuro General: patient oriented x3 Extrem General: Yes normal to inspection Psych Mental Status: mental status grossly normal Office Procedures EKG Details: EKG with sinus rhythm at 61/Min; incomplete right bundle-branch block type pattern; nonspecific ST-T changes. [id number], Complete Assessment & Plan Assessment & Plan (1) Atherosclerotic cardiovascular disease: Code(s): I25.10 - Atherosclerotic heart disease of [place] coronary artery without angina pectoris Plan: Status post CABG x4, 11/2022. He also had closure of PFO that time. He does not really have any anginal-type symptoms. If okay to stay on aspirin for now. Continue statins. Check lipids. (2) Paroxysmal atrial flutter: Code(s): I48.92 - Unspecified atrial flutter Plan: He has not had any major issues with this for many years. However, during hospitalization for anemia it seems he had atrial fibrillation rapid rate. We can go up on the beta-luana dosing from metoprolol 25 b.i.d. to 50 b.i.d.. In the past, he was as much as 100 mg b.i.d. prior to bypass. Otherwise, resume anticoagulation. We will also give him lab slip to check labs through [facility]. (3) Essential hypertension: Code(s): I10 - Essential (primary) hypertension Plan: In the past, he was on amlodipine as well as losartan. Not on them post surgery. Today's pressure is high. We will try higher beta-luana dose as above as he also has palpitations which could be from atrial arrhythmias. If blood pressure is still high, then we can resume the amlodipine and losartan. Discussed about this today. He states he would rather hold off BP meds for now. (4) Anemia: Code(s): D64.9 - Anemia, unspecified Qualifiers: Anemia type: unspecified type Qualified Code(s): D64.9 - Anemia, unspecified Plan: [place] [facility] [place] hemoglobin as low as 5. Underwent GI workup and was found to have duodenitis/duodenal ulcer. Also internal hemorrhoids and colonic polyps. It seems that he was put on PPIs but I do not see it in the current med list. Check blood counts and lab slip given. Plan Total time spent including review of [facility] hospitalization records, counseling, documentation, coordination of care-47 minutes. Orders: Orders Comprehensive Met. Panel Today I48.0 - Paroxysmal atrial fibrillation, Z95.1 - Presence of aortocoronary bypass graft Complete Blood Count no Diff Today Z95.1 - Presence of aortocoronary bypass graft Lipid Panel Today E78.5 - Hyperlipidemia, unspecified, Z95.1 - Presence of aortocoronary bypass graft Medications: New metoprolol tartrate 50 mg PO BID 180 tabs 3RF 90 days Z95.1 - Presence of aortocoronary bypass graft Coding Level of Care Code Est Pt Level 5 (77932) Diagnoses Atherosclerotic cardiovascular disease I25.10 Paroxysmal atrial flutter I48.92 Essential hypertension I10 Anemia, unspecified type D64.9 Anemia type: unspecified type CPT Codes EKG - CPT: [id number], Complete ([id number])
== END 2023-03-11 15:31 | disposition home or self-care (01) ==
PROVIDERS: PCP Internal Medicine; Visit Provider Internal Medicine
DX: I25.10 Atherosclerotic heart disease of native coronary artery without angina pectoris (principal); I48.92 Unspecified atrial flutter; I10 Essential (primary) hypertension; D64.9 Anemia, unspecified
CPT/HCPCS: 93010; 99215

== ENCOUNTER → 2023-03-11 15:00 | Outpatient (BNVA) | payer MEDICARE, SELFPAY | PROVIDERS: PCP Internal Medicine; Visit Provider Internal Medicine | DX: I25.10 Atherosclerotic heart disease of native coronary artery without angina pectoris (principal); I10 Essential (primary) hypertension; I48.92 Unspecified atrial flutter; D64.9 Anemia, unspecified | CPT/HCPCS: 93005; 99212 ==

== ENCOUNTER 2023-03-13 11:32 | Outpatient (REF) | payer MEDICARE, SELFPAY ==
[2023-03-13 12:17] LABS: Hematocrit 27.9 % (42.0-52.0); Hemoglobin 8.9 g/dl (14.0-18.0); Mean Corpuscular HGB Conc 31.9 g/dl (31.0-36.0); Mean Corpuscular Hemoglobin 26.3 pg (27.0-33.0); Mean Corpuscular Volume 82.5 fL (80.0-98.0); Mean Platelet Volume 11.1 fL (9.4-12.4); Platelet Count 212 X10*3/uL (160-400); Red Blood Count 3.38 X10*6/uL (4.60-5.80); Red Cell Distribution Width 16.5 % (11.0-16.0); White Blood Count 7.2 X10*3/uL (4.8-10.8)
[2023-03-13 12:46] LABS: Alanine Aminotransferase 13 U/L (0-40); Alkaline Phosphatase 79 U/L (39-117); Anion Gap 11 (12-20); Aspartate Amino Transferase 13 U/L (5-37); Bilirubin Total 0.3 mg/dL (0.0-1.0); Blood Urea Nitrogen 23 mg/dL (9-16); Calcium 9.6 mg/dL (8.4-10.2); Carbon Dioxide 24 mmol/L (22-29); Chloride 106 mmol/L (96-108); Cholesterol 97 mg/dL (<200); Estimated Glomerular Filt Rate 42; Glucose Random 116 mg/dL (60-115); HDL Cholesterol 17 mg/dL (>40); LDL Cholesterol Calculated 45 mg/dL (<100); Potassium 4.1 mmol/L (3.3-5.1); Sodium 137 mmol/L (135-145); Total Protein 7.1 g/dL (6.5-8.0); Triglycerides 177 mg/dL (<150)
== END 2023-03-13 11:33 | disposition home or self-care (01) ==
LOC: HO.LAB 11:32
PROVIDERS: PCP Internal Medicine; Visit Provider Internal Medicine
DX: E78.5 Hyperlipidemia, unspecified (principal); I48.0 Paroxysmal atrial fibrillation; Z95.1 Presence of aortocoronary bypass graft
CPT/HCPCS: 36415; 80053; 80061; 85027

== ENCOUNTER 2023-03-18 14:43 | Outpatient (AMB) | payer MEDICARE, SELFPAY ==
--- NOTE | 2023-03-18 14:45 | MHC.OFFVIS ---
Intake Vital Signs 03/18/23 14:46 Height 6 ft Weight 187 lb 6.287 oz BMI 25.4 BP 136/60 Blood Pressure Location Lt brachial Position Sitting Pulse 65 Intake Visit Reasons: 2 mth fu Intake Note: 2 month follow up Natural Resources Engineer Required: No Accompanied by: Self / Same As Patient Allergies fluticasone [From Flonase] Allergy (Unknown, Verified 03/18/23 14:50) unknown lisinopril Adverse Reaction (Unknown, Verified 03/18/23 14:50) cough STEROIDS Adverse Reaction (Unknown, Uncoded 03/18/23 14:50) TACHYCARDIA Medication List - Last Reconciled 03/18/23 by Rich Mera MD apixaban (Eliquis) 5 mg PO BID 90 days aspirin 81 mg PO DAILY atorvastatin 40 mg PO DAILY dulaglutide 0.75 mg subcut QWEEK levothyroxine 88 mcg PO DAILY metformin 1,000 mg PO BID metoprolol tartrate 50 mg PO BID 90 days omega-3 fatty acids (Fish Oil Concentrate) 1,000 mg PO DAILY HPI HPI Comments History of Present Illness Details Ian returns for follow-up. In the past, he was followed for paroxysmal atrial flutter. He was maintained on beta-blockers and Eliquis. He was having chest discomfort that led to further workup and eventually to cardiac catheterization followed by bypass surgery. Postoperatively, it seems that he had another hospitalization for duodenal ulcer and was significantly anemic down to almost 5. After that, anticoagulation was held as he was still anemic. Few days back, he was seen in follow-up. We increased the dose of beta-blockers. Resume the Eliquis. Today, he states he feels fine. No cardiac symptoms at all. [facility] [place] Medical History (Updated 03/11/23 @ 15:42 by Rich Mera MD) Pulmonary nodules Pulmonary fibrosis Pneumonia Allergies Atherosclerotic cardiovascular disease Type 2 diabetes mellitus with unspecified complications Essential hypertension Paroxysmal atrial flutter Surgical History S/P cardiac catheterization S/P CABG x 4 History of hernia repair Family History Father Sudden cardiac CVD (cardiovascular disease) Mother No problems noted. (Updated 03/18/23 @ 15:23 by Rich Mera MD) Household Members: Spouse Alcohol intake: unknown Patient Tobacco Use Status: Former Tobacco user Years Smoked: 40 Years Review of Systems Const Denies weakness ENT Denies dizziness Card Denies chest pain, Denies chest pain with activity, Denies syncope, Denies rapid heart rate, Denies pedal edema, Denies edema, Denies leg edema, Denies lightheadedness, Denies palpitations, Denies dyspnea, Denies dyspnea on exertion and Denies orthopnea Resp Denies cough, Denies dyspnea and Denies dyspnea on exertion GI Denies hematochezia and Denies change in stool character Musc Denies abnormal gait, Denies muscle cramps, Denies muscle weakness, Denies numbness, Denies radiating pain into limb and Denies tingling Neuro Denies abnormal gait, Denies dizziness, Denies syncope, Denies numbness, Denies tingling and Denies weakness Endo Denies palpitations Physical Exam Vital Signs: Last Vital Signs Pulse 65 03/18/23 14:46 BP 136/60 03/18/23 14:46 BMI result Body Mass Index 25.4 Const General: comfortable and no acute distress Orientation/consciousness: patient oriented x3 HEENT Other: Unremarkable Head: Yes normal to inspection Neck Neck: Yes normal visual inspection Chest Chest palpation & inspection: normal inspection of the chest Resp Auscultation: clear to auscultation bilaterally Cardio Palpation: normal PMI Heart sounds: S1 normal heart sound present, S2 normal heart sound present, no gallops, no murmurs and no rubs GI Palpation (GI): Soft to palpation Back/Spine/Pelvis Other: unremarkable Skin General skin exam: no rashes or lesions noted Neuro General: patient oriented x3 Extrem General: Yes normal to inspection Psych Mental Status: mental status grossly normal Assessment & Plan Assessment & Plan (1) Atherosclerotic cardiovascular disease: Code(s): I25.10 - Atherosclerotic heart disease of [place] coronary artery without angina pectoris Plan: Status post CABG x4, 11/2022. He also had closure of PFO that time. Due to history of duodenal ulcer, we can keep him on aspirin for the time being but long-term probably just use Eliquis only. Continue statins. Lipids are well controlled. (2) Paroxysmal atrial flutter: Code(s): I48.92 - Unspecified atrial flutter Plan: Generally well controlled at baseline. However, during hospitalization for severe anemia from GI blood loss, he had atrial fibrillation rapid rate. He stable on the current dose of beta-blockers. This was just increased last week. Prior to surgery, he was actually and much higher dose. No further changes for now. Otherwise, anticoagulation has been resumed and hemoglobin is stable but still anemic side. Hopefully, it improves with time. (3) Essential hypertension: Code(s): I10 - Essential (primary) hypertension Plan: In the past, he was on amlodipine as well as losartan. Improved. Based on the future trend, we can decide about resuming these. Patient would like to hold off on them for now. (4) Anemia: Code(s): D64.9 - Anemia, unspecified Qualifiers: Anemia type: unspecified type Qualified Code(s): D64.9 - Anemia, unspecified Plan: Per [facility] notes, hemoglobin as low as 5. Underwent GI workup and was found to have duodenitis/duodenal ulcer. Also internal hemorrhoids and colonic polyps. He was on PPIs. May resume pantoprazole for the next few months or so as he is also on aspirin now rather not have him have recurrent ulcers or other source of GI blood loss. In the long run probably just stop the aspirin completely. Medications: New pantoprazole 40 mg PO DAILY 90 tabs 1RF Coding Level of Care Code Est Pt Level 4 (88394) Diagnoses Atherosclerotic cardiovascular disease I25.10 Paroxysmal atrial flutter I48.92 Essential hypertension I10 Anemia, unspecified type D64.9 Anemia type: unspecified type
[2023-03-18 14:46] VITALS: BP 136/60; PULSE 65; BMI 25.4
== END 2023-03-18 15:06 | disposition home or self-care (01) ==
PROVIDERS: PCP Internal Medicine; Visit Provider Internal Medicine
DX: I25.10 Atherosclerotic heart disease of native coronary artery without angina pectoris (principal); I48.92 Unspecified atrial flutter; I10 Essential (primary) hypertension; D64.9 Anemia, unspecified
CPT/HCPCS: 99214

== ENCOUNTER → 2023-03-18 14:43 | Outpatient (BNVA) | payer MEDICARE, SELFPAY | PROVIDERS: PCP Internal Medicine; Visit Provider Internal Medicine | DX: I48.92 Unspecified atrial flutter (principal); I25.10 Atherosclerotic heart disease of native coronary artery without angina pectoris; I10 Essential (primary) hypertension; D64.9 Anemia, unspecified; Z98.890 Other specified postprocedural states; Z95.1 Presence of aortocoronary bypass graft | CPT/HCPCS: 99212 ==

== ENCOUNTER → 2023-03-20 09:53 | Outpatient (REF) | payer MEDICARE, SELFPAY ==
--- NOTE | 2023-03-20 09:56 | CA_ITS ---
Transthoracic Echocardiogram Amended Patient (Last, First, Middle): Ian Chapman C Gender: Male Date of : 1950 Age: 72 Procedure Date: 03/20/2023 Procedure Type: Transthoracic Echocardiogram Location: OP Height: 182.88 cm Weight: 83.01 kg BSA: 2.05 m2 Heart Rate: bpm BP: 176 / 70 mmHg Hand Cooper Helper: TO Referring MD: Tere PAYAN Electronics Maintenance Technician: Lucian Fraser MD Symptoms: Z95.1 - Presence of aortocoronary bypass graft Study Quality: Fair/Contrast ECG Rhythm: Sinus Conclusions: - 1. Normal LV ejection fraction of 60 65% with through normal filling pattern 2. Moderately dilated left atrium 3. Calcific aortic valve changes noted with early mild aortic stenosis 4. Mildly dilated ascending aorta at 3.9 cm 5. Normal RV systolic pressure 6. No gross pericardial effusion Findings Procedure Information Contrast agent, definity, is being given per protocol without apparent complications. Left Ventricle Normal left ventricular size, thickness, and systolic function. The visually estimated ejection fraction is between 60-65%. There is paradoxical septal motion consistent with post-operative status. Spectral Doppler is indicative of a pseudonormal filling pattern. E/E prime ratio is between 8 and 15 consistent with indeterminate filling pressures. Wall Motion Rest Echo Findings The basal inferior and basal inferoseptal segments are akinetic. All other scored wall segments showed normal motion. Right Ventricle Normal right ventricular cavity size and systolic function. Atria The left atrium is moderately dilated. Interatrial shunt cannot be excluded. The right atrium is likely dilated. Aortic Valve There is moderate calcification of the aortic valve. There is mild thickening of the aortic valve. There is no aortic valve stenosis. There is no aortic valve regurgitation. Mitral Valve There is mild anterior and posterior mitral leaflet thickening. There is mild mitral annular calcification. There is mild mitral valve regurgitation. There is no mitral valve stenosis. Pulmonic Valve The pulmonic valve is likely normal. There is trace pulmonic valve regurgitation. Tricuspid Valve Normal tricuspid valve structure. There is mild tricuspid valve regurgitation. The right ventricular systolic pressure is normal. The right ventricular systolic pressure is 30 mmHg. Normal right atrial pressure. There is no evidence of pulmonary hypertension. Great Vessels The pulmonary artery was not well visualized. There is mild dilatation of the ascending aorta measuring 3.90 cm. Venous The inferior vena cava is normal in size and collapses greater than 50% with inspiration. Pericardium/Pleural There is no evidence of pericardial effusion. Prior Study Comparison No significant change compared to prior study dated: 10/12/2022. Measurements 2D Linear Measurements IVSd: 1.12 0.6-0.9/0.6-1.0 cm LVIDd: 4.55 3.9-5.3/4.2-5.9 cm LVIDd Index: 2.22 2.4-3.2/2.2-3.1 cm/m2 LVIDs: 2.94 2.0-3.6 cm LVPWd: 0.93 0.7-1.1 cm LA Diam: 4.30 2.7-3.8/3.0-4.0 cm LAIDs Index: 2.10 1.5-2.3 cm/m2 LV Mass: 258.45 67-162/88-224 g LV Mass Index: 126.07 43-95/49-115 g/m2 LVOT Diam: 2.40 3.0+(-)1.3 cm 2D Volumes LA Vol: 46.00 2D Systolic Function EF 4C: 62.30 >55% EF 2C: 58.90 >55% EF BiP: 61.00 >55% Mitral Valve MV Pk E: 0.91 MV PK A: 0.52 MV Decel Time: 210.00 E/A: 1.80 E'Lateral: 9.25 E'Medial: 5.22 E/E' Med: 17.40 E/E' Lat: 9.80 PHT: 61.00 MVA PHT: 3.61 Decel Ford: 4.33 Aortic Valve AoV Pk Armando: 1.77 AoV Mn Armando: 1.24 AoV VTI: 0.46 AoV Pk Grad: 13.00 Aov Mn Grad: 7.00 ROQUE Cont.VTI: 2.24 LVOT LVOT Pk Armando: 0.93 LVOT Mn Armando: 0.56 LVOT VTI: 0.23 LVOT Pk Grad: 3.00 LVOT Mn Grad: 1.00 LVOT Diam: 2.40 LVOT Area: 4.52 Diastolic Function MV Pk E: 0.91 MV Pk A: 0.52 E/A: 1.80 E'Medial: 5.22 E/E' Med: 17.40 E' Laterial: 9.25 E/E' Lat: 9.80 Right Ventricle TAPSE (mm): 20.90 TVS' Armando: 9.79 Tricuspid Valve TR Pk Armando: 2.61 TR Pk Grad: 27.00 RA Press: 3.00 RVSP: 30.00 Great Vessels Aorta Sinus of Valsalva: 4.43 2.0-3.[address] [place]: 3.24 1.7-3.4 cm Ao Asc: 3.90 2.1-3.4 cm Updated in Other Vendor System with Status of Final Lucian Fraser MD electronically signed on 03/21/2023 5:58:14 PM with status of Final
== END ==
LOC: HO.CARD 09:53
PROVIDERS: PCP Internal Medicine; Visit Provider Nurse Practitioner Family
DX: Z95.1 Presence of aortocoronary bypass graft (principal)
CPT/HCPCS: 93306; Q9957

== ENCOUNTER → 2023-03-20 09:56 | Outpatient (BNV) | payer MEDICARE, SELFPAY | PROVIDERS: PCP Internal Medicine; Visit Provider Internal Medicine Cardiovascular Disease | DX: I35.0 Nonrheumatic aortic (valve) stenosis (principal); Z95.1 Presence of aortocoronary bypass graft | CPT/HCPCS: 93306 ==

== ENCOUNTER 2023-07-11 13:05 | Outpatient (AMB) | payer MEDICARE, SELFPAY ==
--- NOTE | 2023-07-11 13:05 | MHC.OFFVIS ---
Intake Vital Signs 07/11/23 13:07 Height 6 ft Weight 187 lb 6.287 oz BMI 25.4 BP 160/74 H Blood Pressure Location Lt brachial Position Sitting Pulse 62 Intake Visit Reasons: 4 mth f/up Intake Note: 4 month follow up Hogshead Inspector Required: No Accompanied by: Self / Same As Patient Allergies fluticasone [From Flonase] Allergy (Unknown, Verified 07/11/23 13:07) unknown lisinopril Adverse Reaction (Unknown, Verified 07/11/23 13:07) cough STEROIDS Adverse Reaction (Unknown, Uncoded 07/11/23 13:07) TACHYCARDIA Medication List - Last Reconciled 07/11/23 by Rich Mera MD amlodipine 2.5 mg PO DAILY apixaban (Eliquis) 5 mg PO BID 90 days aspirin 81 mg PO DAILY atorvastatin 40 mg PO DAILY dulaglutide 0.75 mg subcut QWEEK levothyroxine 88 mcg PO DAILY losartan 25 mg PO DAILY metformin 1,000 mg PO BID metoprolol tartrate 50 mg PO BID 90 days omega-3 fatty acids (Fish Oil Concentrate) 1,000 mg PO DAILY pantoprazole 40 mg PO DAILY HPI HPI Comments History of Present Illness Details Ian returns for follow-up. In the past, he was followed for paroxysmal atrial flutter. He was maintained on beta-blockers and Eliquis. He was having chest discomfort that led to further workup and eventually to cardiac catheterization followed by bypass surgery. Postoperatively, it seems that he had another hospitalization for duodenal ulcer and was significantly anemic down to almost 5. Anticoagulation was on hold for some time but then he is back on it. Overall, he states he feels fine. No new concerns. Blood pressures have been running high. [facility] Medical History (Updated 03/11/23 @ 15:42 by Rich Mera MD) Pulmonary nodules Pulmonary fibrosis Pneumonia Allergies Atherosclerotic cardiovascular disease Type 2 diabetes mellitus with unspecified complications Essential hypertension Paroxysmal atrial flutter Surgical History S/P cardiac catheterization S/P CABG x 4 History of hernia repair Family History Father Sudden cardiac CVD (cardiovascular disease) Mother No problems noted. Social History Household Members: Spouse Alcohol intake: unknown Patient Tobacco Use Status: Former Tobacco user Years Smoked: 40 Years Review of Systems Const Denies weakness ENT Denies dizziness Card Denies chest pain, Denies chest pain with activity, Denies syncope, Denies rapid heart rate, Denies pedal edema, Denies edema, Denies leg edema, Denies lightheadedness, Denies palpitations, Denies dyspnea, Denies dyspnea on exertion and Denies orthopnea Resp Denies cough, Denies dyspnea and Denies dyspnea on exertion GI Denies hematochezia and Denies change in stool character Musc Denies abnormal gait, Denies muscle cramps, Denies muscle weakness, Denies numbness, Denies radiating pain into limb and Denies tingling Neuro Denies abnormal gait, Denies dizziness, Denies syncope, Denies numbness, Denies tingling and Denies weakness Endo Denies palpitations Physical Exam Vital Signs: Last Vital Signs Pulse 62 07/11/23 13:07 BP 160/74 H 07/11/23 13:07 BMI result Body Mass Index 25.4 Const General: comfortable and no acute distress Orientation/consciousness: patient oriented x3 HEENT Other: Unremarkable Head: Yes normal to inspection Neck Neck: Yes normal visual inspection Chest Chest palpation & inspection: normal inspection of the chest Resp Auscultation: clear to auscultation bilaterally Cardio Palpation: normal PMI Heart sounds: S1 normal heart sound present, S2 normal heart sound present, no gallops, Murmur heart sound present systolic II/ and at the right sternal border and no rubs GI Palpation (GI): Soft to palpation Back/Spine/Pelvis Other: unremarkable Skin General skin exam: no rashes or lesions noted Neuro General: patient oriented x3 Extrem General: Yes normal to inspection Psych Mental Status: mental status grossly normal Assessment & Plan Assessment & Plan (1) Atherosclerotic cardiovascular disease: Code(s): I25.10 - Atherosclerotic heart disease of [place] coronary artery without angina pectoris Plan: Status post CABG x4, 11/2022. He also had closure of PFO that time. Due to history of duodenal ulcer, just stop the aspirin and keep only on Eliquis. Continue statins. Lipids are well controlled. (2) Paroxysmal atrial flutter: Code(s): I48.92 - Unspecified atrial flutter Plan: Generally well controlled at baseline. However, during hospitalization for severe anemia from GI blood loss, he had atrial fibrillation with rapid rate. He stable on the current dose of beta-blockers. Continue anticoagulation. (3) Essential hypertension: Code(s): I10 - Essential (primary) hypertension Plan: Blood pressure is running high here as well as at home. He has been commenced on small dose of losartan and amlodipine. Advised him to go up on the amlodipine to 5 mg daily and then possibly 10 mg daily. He will keep us informed about the blood pressures. (4) Anemia: Code(s): D64.9 - Anemia, unspecified Qualifiers: Anemia type: unspecified type Qualified Code(s): D64.9 - Anemia, unspecified Plan: Per [facility] notes, hemoglobin as low as 5. Underwent GI workup and was found to have duodenitis/duodenal ulcer. Also internal hemorrhoids and colonic polyps. He remains on pantoprazole. May stop the aspirin. Recheck CBC. Coding Level of Care Code Est Pt Level 4 (61279) Diagnoses Atherosclerotic cardiovascular disease I25.10 Paroxysmal atrial flutter I48.92 Essential hypertension I10 Anemia, unspecified type D64.9 Anemia type: unspecified type
[2023-07-11 13:07] VITALS: BP 160/74; PULSE 62; BMI 25.4
== END 2023-07-11 13:30 | disposition home or self-care (01) ==
PROVIDERS: PCP Internal Medicine; Visit Provider Internal Medicine
DX: I25.10 Atherosclerotic heart disease of native coronary artery without angina pectoris (principal); I48.92 Unspecified atrial flutter; I10 Essential (primary) hypertension; D64.9 Anemia, unspecified
CPT/HCPCS: 99214

== ENCOUNTER → 2023-07-11 13:05 | Outpatient (BNVA) | payer MEDICARE, SELFPAY | PROVIDERS: PCP Internal Medicine; Visit Provider Internal Medicine | DX: I48.92 Unspecified atrial flutter (principal); I25.10 Atherosclerotic heart disease of native coronary artery without angina pectoris; I10 Essential (primary) hypertension; D64.9 Anemia, unspecified; Z79.01 Long term (current) use of anticoagulants; Z79.899 Other long term (current) drug therapy | CPT/HCPCS: 99212 ==

== ENCOUNTER 2024-01-06 10:36 | Outpatient (AMB) | payer MEDICARE, SELFPAY ==
[2024-01-06 10:41] VITALS: BP 150/68; PULSE 58; BMI 25.9
--- NOTE | 2024-01-06 10:41 | MHC.OFFVIS ---
Vital Signs 01/06/24 10:41 Height 6 ft Weight 190 lb 14.725 oz BMI 25.9 BP 150/68 H Blood Pressure Location Lt brachial Position Sitting Pulse 58 Intake Visit Reasons: 6 m follow up Reexaminer Required: No Accompanied by: Self / Same As Patient Allergies fluticasone [From Flonase] Allergy (Unknown, Verified 07/11/23 13:07) unknown lisinopril Adverse Reaction (Unknown, Verified 07/11/23 13:07) cough STEROIDS Adverse Reaction (Unknown, Uncoded 07/11/23 13:07) TACHYCARDIA Medication List - Last Reconciled 01/06/24 by Rich Mera MD amlodipine 10 mg PO DAILY apixaban (Eliquis) 5 mg PO BID 30 days atorvastatin 40 mg PO DAILY dulaglutide 0.75 mg subcut QWEEK levothyroxine 88 mcg PO DAILY losartan 25 mg PO DAILY metformin 1,000 mg PO BID metoprolol tartrate 50 mg PO BID 90 days omega-3 fatty acids (Fish Oil Concentrate) 1,000 mg PO DAILY pantoprazole 40 mg PO DAILY HPI Comments Details: Ian returns for follow-up. In the past, he was followed for paroxysmal atrial flutter. He was maintained on beta-blockers and Eliquis. He was having chest discomfort that led to further workup and eventually to cardiac catheterization followed by bypass surgery. Postoperatively, it seems that he had another hospitalization for duodenal ulcer and was significantly anemic down to almost 5. Anticoagulation was on hold for some time but then he is back on it. Since last seen, he is generally doing fine. No clear-cut complaints like angina or in fact anything cardiac. [facility] Medical History (Updated 03/11/23 @ 15:42 by Rich Mera MD) Pulmonary nodules Pulmonary fibrosis Pneumonia Allergies Atherosclerotic cardiovascular disease Type 2 diabetes mellitus with unspecified complications Essential hypertension Paroxysmal atrial flutter Surgical History S/P cardiac catheterization S/P CABG x 4 History of hernia repair Family History Father Sudden cardiac CVD (cardiovascular disease) Mother No problems noted. Social History Household Members: Spouse Alcohol intake: unknown Patient Tobacco Use Status: Former Tobacco user Years Smoked: 40 Years Review of Systems Const Denies chills, Denies fatigue, Denies fever(s), Denies weight gain and Denies weight loss ENT Denies dizziness Card Denies chest pain, Denies leg edema, Denies lightheadedness, Denies palpitations, Denies dyspnea on exertion, Denies orthopnea and Denies other Resp Denies cough and Denies dyspnea on exertion GI Denies hematochezia and Denies change in stool character Musc Denies abnormal gait, Denies muscle weakness, Denies numbness, Denies radiating pain into limb and Denies tingling Neuro Denies abnormal gait, Denies dizziness, Denies numbness and Denies tingling Endo Denies fatigue and Denies palpitations Physical Exam Vital Signs: Last Vital Signs Pulse 58 01/06/24 10:41 BP 150/68 H 01/06/24 10:41 BMI result Body Mass Index 25.9 Const General: comfortable and no acute distress Orientation/consciousness: patient oriented x3 HEENT Other: Unremarkable Head: Yes normal to inspection Neck Neck: Yes normal visual inspection Chest Chest palpation & inspection: normal inspection of the chest Resp Auscultation: clear to auscultation bilaterally Cardio Palpation: normal PMI Heart sounds: S1 normal heart sound present, S2 normal heart sound present, no gallops, no murmurs and no rubs GI Palpation (GI): Soft to palpation Back/Spine/Pelvis Other: unremarkable Skin General skin exam: no rashes or lesions noted Neuro General: patient oriented x3 Extrem General: Yes normal to inspection Psych Mental Status: mental status grossly normal Office Procedures EKG Details: EKG with underlying sinus rhythm; NE prolongation to 212 milliseconds; old inferior infarct; right bundle-branch block. [id number], Complete Assessment & Plan Assessment & Plan (1) Atherosclerotic cardiovascular disease: Code(s): I25.10 - Atherosclerotic heart disease of [place] coronary artery without angina pectoris Category: Medical Plan: Status post CABG x4, 11/2022. He also had closure of PFO that time. Due to history of duodenal ulcer, off aspirin and remain only on Eliquis. Continue statins. Last LDL 45 mg/dL. (2) Paroxysmal atrial flutter: Code(s): I48.92 - Unspecified atrial flutter Category: Medical Plan: Generally well controlled at baseline. However, during hospitalization for severe anemia from GI blood loss, he had atrial fibrillation with rapid rate. He stable on the current dose of beta-blockers. Continue anticoagulation. (3) Essential hypertension: Code(s): I10 - Essential (primary) hypertension Category: Medical Plan: On amlodipine 10 mg daily; Losartan 25 mg daily; metoprolol 50 mg b.i.d.. In the past, he was on higher dose of beta-luana but already has slight bradycardia and conduction system disease and hence would prefer not to go up. Possibly go up on the Losartan, but he also has some renal dysfunction. Advised him to forward the labs that he plans to do this week. Otherwise, try Imdur 30 mg daily which could help with blood pressure as well. (4) Anemia: Code(s): D64.9 - Anemia, unspecified Category: Medical Qualifiers: Anemia type: unspecified type Qualified Code(s): D64.9 - Anemia, unspecified Plan: Per [facility] notes, hemoglobin as low as 5. Underwent GI workup and was found to have duodenitis/duodenal ulcer. Also internal hemorrhoids and colonic polyps. He remains on pantoprazole. Off aspirin. Will obtain the last labs from PCP. Medications: New isosorbide mononitrate ER 30 mg PO DAILY 90 tabs 3RF Coding Level of Care Code Est Pt Level 4 (77104) Diagnoses Atherosclerotic cardiovascular disease I25.10 Paroxysmal atrial flutter I48.92 Essential hypertension I10 Anemia, unspecified type D64.9 Anemia type: unspecified type CPT Codes EKG - CPT: 56822-[id number], Complete ([id number])
== END 2024-01-06 11:08 | disposition home or self-care (01) ==
PROVIDERS: PCP Internal Medicine; Visit Provider Internal Medicine
DX: I25.10 Atherosclerotic heart disease of native coronary artery without angina pectoris (principal); I48.92 Unspecified atrial flutter; I10 Essential (primary) hypertension; D64.9 Anemia, unspecified
CPT/HCPCS: 93010; 99214

== ENCOUNTER → 2024-01-06 10:36 | Outpatient (BNVA) | payer MEDICARE, SELFPAY | PROVIDERS: PCP Internal Medicine; Visit Provider Internal Medicine | DX: I44.0 Atrioventricular block, first degree (principal); I45.10 Unspecified right bundle-branch block; I48.92 Unspecified atrial flutter; I25.10 Atherosclerotic heart disease of native coronary artery without angina pectoris; I10 Essential (primary) hypertension; D64.9 Anemia, unspecified; Z79.01 Long term (current) use of anticoagulants | CPT/HCPCS: 93005; 99212 ==

== ENCOUNTER 2024-08-06 14:26 | Outpatient (AMB) | payer MEDICARE, SELFPAY ==
--- NOTE | 2024-08-06 14:28 | MHC.OFFVIS ---
Vital Signs 08/06/24 14:30 Height 6 ft Weight 202 lb 13.204 oz BMI 27.5 BP 132/60 Blood Pressure Location Lt brachial Position Sitting Pulse 66 Pulse Source Pulse Oximeter Intake Visit Reasons: 6 mth f/up Technical Delivery Manager Required: No Accompanied by: Self / Same As Patient Allergies fluticasone [From Flonase] Allergy (Unknown, Verified 07/11/23 13:07) unknown lisinopril Adverse Reaction (Unknown, Verified 07/11/23 13:07) cough STEROIDS Adverse Reaction (Unknown, Uncoded 07/11/23 13:07) TACHYCARDIA Medication List - Last Reconciled 08/06/24 by Rich Mera MD amlodipine 10 mg PO DAILY apixaban (Eliquis) 5 mg PO BID 30 days atorvastatin 40 mg PO DAILY dulaglutide 0.75 mg subcut QWEEK isosorbide mononitrate ER 30 mg PO DAILY levothyroxine 88 mcg PO DAILY losartan 25 mg PO DAILY metformin 1,000 mg PO BID metoprolol tartrate 50 mg PO BID 90 days omega-3 fatty acids (Fish Oil Concentrate) 1,000 mg PO DAILY pantoprazole 40 mg PO DAILY HPI Comments Details: Ian returns for follow-up. In the past, he was followed for paroxysmal atrial flutter. He was maintained on beta-blockers and Eliquis. He was having chest discomfort that led to further workup and eventually to cardiac catheterization followed by bypass surgery. Postoperatively, he had another hospitalization for duodenal ulcer and was significantly anemic down to almost 5. Anticoagulation was on hold for some time but then he is back on it. Overall, he is doing good. No cardiac symptoms. [facility] Medical History (Updated 03/11/23 @ 15:42 by Rich Mera MD) Pulmonary nodules Pulmonary fibrosis Pneumonia Allergies Atherosclerotic cardiovascular disease Type 2 diabetes mellitus with unspecified complications Essential hypertension Paroxysmal atrial flutter Surgical History S/P cardiac catheterization S/P CABG x 4 History of hernia repair Family History Father Sudden cardiac CVD (cardiovascular disease) Mother No problems noted. Social History Household Members: Spouse Alcohol intake: unknown Patient Tobacco Use Status: Former Tobacco user Years Smoked: 40 Years Review of Systems Const Denies chills, Denies fatigue, Denies fever(s), Denies frequent falls, Denies weakness, Denies weight gain and Denies weight loss ENT Denies dizziness Card Denies chest pain, Denies leg edema, Denies lightheadedness, Denies palpitations, Denies dyspnea and Denies dyspnea on exertion Resp Denies cough, Denies dyspnea and Denies dyspnea on exertion GI Denies hematochezia Musc Denies abnormal gait, Denies muscle weakness, Denies numbness, Denies radiating pain into limb and Denies tingling Neuro Denies abnormal gait, Denies dizziness, Denies frequent falls, Denies numbness, Denies tingling and Denies weakness Endo Denies fatigue and Denies palpitations Physical Exam Vital Signs: Last Vital Signs Pulse 66 08/06/24 14:30 BP 132/60 08/06/24 14:30 BMI result Body Mass Index 27.5 Const General: comfortable and no acute distress Orientation/consciousness: patient oriented x3 HEENT Other: Unremarkable Head: Yes normal to inspection Neck Neck: Yes normal visual inspection Chest Chest palpation & inspection: normal inspection of the chest Resp Auscultation: clear to auscultation bilaterally Cardio Palpation: normal PMI Heart sounds: S1 normal heart sound present, S2 normal heart sound present, no gallops, Murmur heart sound present systolic I/ and at the right sternal border and no rubs GI Palpation (GI): Soft to palpation Back/Spine/Pelvis Other: unremarkable Skin General skin exam: no rashes or lesions noted Neuro General: patient oriented x3 Extrem General: Yes normal to inspection Psych Mental Status: mental status grossly normal Assessment & Plan Assessment & Plan (1) Atherosclerotic cardiovascular disease: Code(s): I25.10 - Atherosclerotic heart disease of [place] coronary artery without angina pectoris Category: Medical Plan: Status post CABG x4, 11/2022. He also had closure of PFO that time. Due to history of duodenal ulcer, off aspirin and remain only on Eliquis. Continue statins. Last LDL 45 mg/dL. (2) Paroxysmal atrial flutter: Code(s): I48.92 - Unspecified atrial flutter Category: Medical Plan: On beta-blockers/Eliquis. (3) Essential hypertension: Code(s): I10 - Essential (primary) hypertension Category: Medical Plan: Change metoprolol to Coreg to see if that helps. Continue Amlodipine, Losartan, Imdur. (4) Anemia: Code(s): D64.9 - Anemia, unspecified Category: Medical Qualifiers: Anemia type: unspecified type Qualified Code(s): D64.9 - Anemia, unspecified Plan: Per [facility] notes, hemoglobin as low as 5. Underwent GI workup and was found to have duodenitis/duodenal ulcer. Also internal hemorrhoids and colonic polyps. He remains on pantoprazole. Off aspirin. We will get the last labs from PCP. Plan Discussion Notes During our discussion, I explained the rationale for transitioning from metoprolol to carvedilol, emphasizing carvedilol's additional benefits on blood pressure control. I highlighted the importance of continuing losartan therapy and ensuring adherence to the new medication schedule. The patient understands that metoprolol should be discontinued immediately upon starting carvedilol and has acknowledged the instruction. We reviewed the discrepancy in blood pressure readings between home and the clinic setting, considering factors like the age of the home monitor and technique. I assured the patient that obtaining recent laboratory values from PCP will aid in ongoing management. Lastly, instructions for home care include maintaining an accurate blood pressure log. The patient is informed about follow-up and when to return for re-evaluation if any concerns arise before the six-month review. Patient was informed and verbally consented to the use of an ambient scribe for clinic note documentation during this visit. Medications: New carvedilol (Coreg) must administer with a meal/food 12.5 mg PO BID 180 tabs 3RF 90 days Refilled losartan 25 mg PO DAILY 90 tabs 3RF Discontinued metoprolol tartrate Discontinued Reason: Doctor's Order 50 mg PO BID 90 days 180 tabs 3RF Z95.1 - Presence of aortocoronary bypass graft Patient Instructions: - Switch from metoprolol to carvedilol as discussed and take with food. - Continue taking losartan as prescribed with new refills. - Monitor blood pressure at home regularly and record the readings. - Follow up in six months or sooner if any concerns arise. - Keep a record of any symptoms or changes and report them during the next visit. Coding Level of Care Code Est Pt Level 4 (91627) Complex EM visit Add On G2211 Diagnoses Atherosclerotic cardiovascular disease I25.10 Paroxysmal atrial flutter I48.92 Essential hypertension I10 Anemia, unspecified type D64.9 Anemia type: unspecified type
[2024-08-06 14:30] VITALS: BP 132/60; PULSE 66; BMI 27.5
--- OUTSIDE RECORDS SUMMARY | 2024-08-06 17:29 | XMS_ITS | Encounter Summary ---
Author Organization [facility] Address [address] [place] [address] Care Team Providers Care Pigment Making Supervisor Name Role Phone Mariela Schmidt MD Primary Care Provider Cyril Ramos MD Primary Care Provider Nakia Kahn MD Primary Care Prov ider Ronnie Sahu MD Unavailable [phone] Black, Whitney Unavailable Unavailable Nilda, Panda Unavailable Unavailable Rich Mera MD Unavailable Caitie Talbot Unavailable Unavailable Angel Nixon MD Unavailable Unavailable Reason for Visit * Reason Comments E-prescribe Rx Request Encounter Details Date Type Department Care Team Description 06/18/2017 Refill Adult Medicine [address] [address] Chely Jaffe PA-C [address] [place] [id number] E-prescribe Rx Request Social History Tobacco Use Types Packs/Day Years Used Date Smoking Tobacco: Former Cigarettes 2 30 Smokeless Tobacco: Never Comments:QUIT [address] arted smoking @ age 13 Alcohol Use Standard Drinks/Week Comments No 0 (1 standard drink = 0.6 oz pur e alcohol) Sex Assigned at Date Recorded Not on file Job Start Date Occupation Industry Not on file Not on file Not on file documented as of this encounter Miscellaneous Notes * Telephone Encounter - Berta Nowak M.A. - 06/18/2017 10:40 AM EST Lab Results Component Value Date HGBA1C 7.5 05/03/2017 MALBUR 93.2 05/03/2017 MALBCR 81.0 05/03/2017 CHOL 84 12/04/2016 LDL 6 12/04/2016 HDL 20 12/04/2016 TRIG 291 12/04/2016 GLU 188 05/03/2017 CREAT 1.0 05/03/2017 * Telephone Encounter - Omayra Canales - 06/18/2017 8:16 AM EST Patient would like script to be: E-PRESCRIBED/FAXED TO PHARMACY WHEN WAS THE PATIENT'S LAST APPOINTMENT IN ADULT MEDICINE? 05/06/17 WHEN WAS THE LAST TIME THE PATIENT SAW THEIR PCP? 12/05/16 Does patient have an upcoming appointment? Yes 09/03/17 (THE MEDICATION REQUESTED IS ON THE MED LIST ABOVE) All of the medications requested were on the CURRENT MEDS list Did you check the Pharmacy information above?: YES Patient wants: 90 -day supply Is this a mail order prescription request ? NO Patients current insurance carrier is: Payor: [place]/MEDICARE PPO / Plan: [facility] MDCR-ADV PPO $20/$40 [place] / Product Type: MEDICARE [id number] documented in this encounter Plan of Treatment Not on file documented as of this encounter Visit Diagnoses Not on filedocumented in this encounter Care Teams Pigment Making Supervisor Relationship Specialty Start Date End Date Mariela Schmidt MD PCP - General Internal Medicine 08/14/11 01/24/21 Cyril Loja MD PCP - General Internal Medicine 01/25/21 12/17/21 Nakia Tom MD [address] [place] [address] PCP - General Internal Medicine 12/18/21 Ronnie Sahu MD [address] [place] [address] Specialist Nephrology 05/07/22 Whitney Armendariz [address] [place] [address]21 Specialist Podiatry 05/07/22 Panda Munguia [address] [place] [address]395 Specialist Thoracic Surgery 12/18/22 Rich Mera MD [address] [place] [address]33 Specialist Cardiology 12/27/22 Caitie Gross [address] [place] [address]75 Specialist Ophthalmology 12/27/22 Angel Nixon MD [address] [place] [address]39 Specialist Pulmonology 12/27/22 documented as of this encounter
--- OUTSIDE RECORDS SUMMARY | 2024-08-06 17:29 | XMS_ITS | Encounter Summary ---
Author Organization [facility] Address [address] [place] [address] Care Team Providers Care Crab Meat Processor Name Role Phone Mariela Schmidt MD Primary Care Provider Cyril Ramos MD Primary Care Provider Nakia Kahn MD Primary Care Prov ider Ronnie Sahu MD Unavailable Black, Whitney Unavailable Unavailable Sonidamauricio, Panda Unavailable Unavailable Rich Mera MD Unavailable Caitie Talbot Unavailable Unavailable Angel Nixon MD Unavailable Unavailable Reason for Visit * Reason Comments E-prescribe Rx Request Encounter Details Date Type Department Care Team Description 09/04/2017 Refill Adult Medicine [address] [id number] Chely Jaffe PA-C [address] [place] [address] [id number] E-prescribe Rx Request Social History Tobacco Use Types Packs/Day Years Used Date Smoking Tobacco: Former Cigarettes 2 30 0 [birth year]22/1963 - 04/1996 Smokeless Tobacco: Never Comments:QUIT [address] arted smoking @ age 13 Alcohol Use Standard Drinks/Week Comments No 0 (1 standard drink = 0.6 oz pur e alcohol) Sex Assigned at Date Recorded Not on file Job Start Date Occupation Industry Not on file Not on file Not on file documented as of this encounter Miscellaneous Notes * Telephone Encounter - Merry Mckeon M.A. - 09/05/2017 10:05 AM EDT Lab Results Component Value Date TSH 4.87 04/05/2016 * Telephone Encounter - Azul Haja - 09/05/2017 9:26 AM EDT Patient would like script to be: E-PRESCRIBED/FAXED TO PHARMACY WHEN WAS THE PATIENT'S LAST APPOINTMENT IN ADULT MEDICINE? 09/03/17 WHEN WAS THE LAST TIME THE PATIENT SAW THEIR PCP? Same as above Does patient have an upcoming appointment? Yes 01/06/18 (THE MEDICATION REQUESTED IS ON THE MED LIST ABOVE) All of the medications requested were on the CURRENT MEDS list Did you check the Pharmacy information above?: YES Patient wants: 90 -day supply Is this a mail order prescription request ? NO Patients current insurance carrier is: Payor: [facility]/MEDICARE PPO / Plan: [facility] MDCR-ADV PPO $20/$40 [place] / Product Type: MEDICARE [id number] documented in this encounter Plan of Treatment Not on file documented as of this encounter Visit Diagnoses Not on filedocumented in this encounter Care Teams Crab Meat Processor Relationship Specialty Start Date End Date Mariela Schmidt MD PCP - General Internal Medicine 08/14/11 01/24/21 Cyril Loja MD PCP - General Internal Medicine 01/25/21 12/17/21 Nakia Tom MD [address] [place] [address] PCP - General Internal Medicine 12/18/21 Ronnie Sahu MD [address] [place] [address] Specialist Nephrology 05/07/22 Whitney Armendariz [address] [place] [address] Specialist Podiatry 05/07/22 Panda Munguia [address] [place], [place] [phone] Specialist Thoracic Surgery 12/18/22 Rich Mera MD [address] [place] [address]78 Specialist Cardiology 12/27/22 Caitie Gross [address] [place] [address] 07266 Specialist Ophthalmology 12/27/22 Angel Nixon MD [address] [place] [address] 67682 Specialist Pulmonology 12/27/22 documented as of this encounter
--- OUTSIDE RECORDS SUMMARY | 2024-08-06 17:29 | XMS_ITS | Encounter Summary ---
Author Organization [facility] Address [address] [place] [address] Care Team Providers Care Shellfish Checker Name Role Phone Mariela Schmidt MD Primary Care Provider Cyril Ramos MD Primary Care Provider Nakia Kahn MD Primary Care Prov ider Ronnie Sahu MD Unavailable [phone] Black, Whitney Unavailable Unavailable Nilda Panda Unavailable Unavailable Rich Mera MD Unavailable Caitie Talbot Unavailable Unavailable Angel Nixon MD Unavailable Unavailable Encounter Details Date Type Department Care Team Description 07/21/2018 Fiber Optic Assembler Report Medical Records [address] [place] [address] Blu York MD Social History Tobacco Use Types Packs/Day Years [...] on file documented as of this encounter Plan of Treatment Not on file documented as of this encounter Visit Diagnoses Not on filedocumented in this encounter Care Teams Shellfish Checker Relationship Specialty Start Date End Date Mariela Schmidt MD PCP - General Internal Medicine 08/14/11 01/24/21 Cyril Loja MD PCP - General Internal Medicine 01/25/21 12/17/21 Nakia Tom MD [address] [place] [address] PCP - General Internal Medicine 12/18/21 Ronnie Sahu MD [address] [place] [address] 16788 Specialist Nephrology 05/07/22 Whitney Armendariz [address] [place] [address]6634 Specialist Podiatry 05/07/22 Panda Munguia [address] [place] [address]47 Specialist Thoracic Surgery 12/18/22 Rich Mera MD [address] [place] [address] 24777 Specialist Cardiology 12/27/22 Caitie Gross [address] [place] [address] 46724 Specialist Ophthalmology 12/27/22 Angel Nixon MD [address] [place] [address] 0[address]39 Specialist Pulmonology 12/27/22 documented as of this encounter
--- OUTSIDE RECORDS SUMMARY | 2024-08-06 17:29 | XMS_ITS | Encounter Summary ---
Author Organization [facility] Address [address] [place] [address] Care Team Providers Care Clay Preparation Supervisor Name Role Phone Mariela Schmidt MD Primary Care Provider Cyril Ramos MD Primary Care Provider Nakia Kahn MD Primary Care Prov ider Ronnie Sahu MD Unavailable [phone] Black, Whitney Unavailable Unavailable Nilda Panda Unavailable Unavailable Rich Mera MD Unavailable Caitie Talbot Unavailable Unavailable Angel Nixon MD Unavailable Unavailable Encounter Details Date Type Department Care Team Description 07/01/2017 Dog Pound Attendant Report Medical Records [address] [place] [address] Livia Rhoades PA Social History Tobacco Use Types Packs/Day Years [...] on filedocumented in this encounter Care Teams Clay Preparation Supervisor Relationship Specialty Start Date End Date Mariela Schmidt MD PCP - General Internal Medicine 08/14/11 01/24/21 Cyril Loja MD PCP - General Internal Medicine 01/25/21 12/17/21 Nakia Tom MD [address] [place] [address] PCP - General Internal Medicine 12/18/21 Ronnie Sahu MD [address] [place] [address] 87186 Specialist Nephrology 05/07/22 Whitney Armendariz [address] [place] [address]605 Specialist Podiatry 05/07/22 Panda Munguia [address] [place] [address] 71902 Specialist Thoracic Surgery 12/18/22 Rich Mera MD [address] [place] [address] 32272 Specialist Cardiology 12/27/22 Caitie Gross [address] [place] [address]28 Specialist Ophthalmology 12/27/22 Angel Nixon MD [address] [place] [address] Specialist Pulmonology 12/27/22 documented as of this encounter
--- OUTSIDE RECORDS SUMMARY | 2024-08-06 17:29 | XMS_ITS | Encounter Summary ---
Author Organization [facility] Address [address] [place] [address] Care Team Providers Care Coding Validator Name Role Phone Mariela Schmidt MD Primary Care Provider Cyril Ramos MD Primary Care Provider Nakia Kahn MD Primary Care Prov ider Ronnie Sahu MD Unavailable [phone] Black, Whitney Unavailable Unavailable Saadat, Panda Unavailable Unavailable Rich Mera MD Unavailable Caitie Talbot Unavailable Unavailable Angel Nixon MD Unavailable Unavailable Encounter Details Date Type Department Care Team Description 06/26/2013 Pt. Non Urgent Medic al Question Adult Medicine [address] [address] aMriela Schmidt MD Social History Tobacco Use Types Packs/Day [...] on file documented as of this encounter Progress Notes * Kassidy Lynne L.P.N. - 06/26/2013 3:57 PM ESTFrom: IAN POWER To: Mariela Schmidt MD Sent: SatJun 26, 2013 3:09 PM Subject: prescription Good afternoon Dr. Schmidt, Last visit we discussed my ED and my trying Viagra again. (It's been three years). Given the control over the diabetes I've shown for the last two years we would like to try it. Whichever you think is best, Viagra, Levitra, or Cialis, could I get a few through [facility] [address]? I have not studied which is best for diabetics, so I will leave it to your discretion based upon my condition and other medications. Thanks, John Power documented in this encounter Plan of Treatment Not on file documented as of this encounter Visit Diagnoses Not on filedocumented in this encounter Care Teams Coding Validator Relationship Specialty Start Date End Date Mariela Schmidt MD PCP - General Internal Medicine 08/14/11 01/24/21 Cyril Loja MD PCP - General Internal Medicine 01/25/21 12/17/21 Nakia Tom MD [address] [place] [address] PCP - General Internal Medicine 12/18/21 Ronnie Sahu MD [address] [place] [address] Specialist Nephrology 05/07/22 Whitney Armendariz [address] [place] [address] Specialist Podiatry 05/07/22 Panda Munguia [address] [place] [address] Specialist Thoracic Surgery 12/18/22 Rich Mera MD [address] [place] [address] 82542 Specialist Cardiology 12/27/22 Caitie Gross [address] [place] [address]93 Specialist Ophthalmology 12/27/22 Angel Nixon MD [address] [place] [address] Specialist Pulmonology 12/27/22 documented as of this encounter
--- OUTSIDE RECORDS SUMMARY | 2024-08-06 17:29 | XMS_ITS | Encounter Summary ---
Author Organization [facility] Address [address] [place] [address] Care Team Providers Care Shipmaster Name Role Phone Mariela Schmidt MD Primary Care Provider Cyril Ramos MD Primary Care Provider Nakia Kahn MD Primary Care Prov ider Ronnie Sahu MD Unavailable [phone] Black, Whitney Unavailable Unavailable Sonidamauricio, Panda Unavailable Unavailable Rich Mera MD Unavailable Caitie Talbot Unavailable Unavailable Angel Nixon MD Unavailable Unavailable Encounter Details Date Type Department Care Team Description 11/22/2020 Refill Adult Medicine [address] [phone] Jian Lang MD [address] [place] [address] [phone] Social History Tobacco Use Types Packs/Day Years [...] encounter Miscellaneous Notes * Telephone Encounter - Angeles Ohara M.A. - 11/22/2020 12:03 PM EDT Jocelyne 10/03 Nov 01/03 Lab Results Component Value Date HGBA1C 6.9 08/02/2020 MALBUR 39.5 05/10/2020 MALBCR 103.9 05/10/2020 CHOL 104 05/10/2020 LDL 26 05/10/2020 HDL 23 05/10/2020 TRIG 276 05/10/2020 GLU 122 05/10/2020 CREAT 1.46 05/10/2020 documented in this encounter Plan of Treatment Not on file documented as of this encounter Visit Diagnoses Not on filedocumented in this encounter Care Teams Shipmaster Relationship Specialty Start Date End Date Mariela Schmidt MD PCP - General Internal Medicine 08/14/11 01/24/21 Cyril Loja MD PCP - General Internal Medicine 01/25/21 12/17/21 Nando Rankin, Nakia Johnston MD [address] [place] [address] PCP - General Internal Medicine 12/18/21 Ronnie Sahu MD [address] [place] [address] 83846 Specialist Nephrology 05/07/22 Whitney Armendariz [address] [place] [address] 52599 Specialist Podiatry 05/07/22 Panda Munguia [address] [place] [address] 20195 Specialist Thoracic Surgery 12/18/22 Rich Mera MD [address] [place] [address] 74048 Specialist Cardiology 12/27/22 Caitie Gross [address] [place] [address] 27776 Specialist Ophthalmology 12/27/22 Angel Nixon MD [address] [place] [address] 48755 Specialist Pulmonology 12/27/22 documented as of this encounter
--- OUTSIDE RECORDS SUMMARY | 2024-08-06 17:29 | XMS_ITS | Encounter Summary ---
Author Organization [facility] Address [address] [place] [address] Care Team Providers Care Staff Physician Name Role Phone Mariela Schmidt MD Primary Care Provider Cyril Ramos MD Primary Care Provider Nakia Kahn MD Primary Care Prov ider Ronnie Sahu MD Unavailable [phone] Black, Whitney Unavailable Unavailable Nilda Panda Unavailable Unavailable Rich Mera MD Unavailable Caitie Talbot Unavailable Unavailable Angel Nixon MD Unavailable Unavailable Reason for Visit * Reason Comments E-prescribe Rx Request Encounter Details Date Type Department Care Team Description 05/04/2018 Refill Adult Medicine [address] [address] Nicole Perrin APRN E-prescribe Rx Request Social History Tobacco Use [...] encounter Miscellaneous Notes * Telephone Encounter - Vikki Perry M.A. - 05/05/2018 9:19 AM EST Lab Results Component Value Date NA 139 05/03/2017 K 4.1 05/03/2017 CO2 28.9 05/03/2017 CL 97 05/03/2017 BUN 19 05/03/2017 CREAT 1.0 05/03/2017 GLU 188 05/03/2017 CA 9.3 05/03/2017 GFR > 60 05/03/2017 * Telephone Encounter - Jolie Hidalgo - 05/05/2018 7:48 AM EST Patient would like script to be: E-PRESCRIBED/FAXED TO PHARMACY ?? WHEN WAS THE PATIENT'S LAST APPOINTMENT IN ADULT MEDICINE? [id number] ?? WHEN WAS THE LAST TIME THE PATIENT SAW THEIR PCP? [id number] ?? Does patient have an upcoming appointment? Yes [id number] ?? (THE MEDICATION REQUESTED IS ON THE MED LIST ABOVE) All of the medications requested were on the CURRENT MEDS list ?? Did you check the Pharmacy information above?: YES ?? Patient wants: 90 -day supply ?? Is this a mail order prescription request ? YES ?? If the refill is from a FAXED refill request what is the RX # listed on the fax? N/A ?? Patients current insurance carrier is: [place] / Plan: BCBS MDCR-ADV PPO $20/$40 [place] / Product Type: MEDICARE [id number] ?? documented in this encounter Plan of Treatment Not on file documented as of this encounter Visit Diagnoses Not on filedocumented in this encounter Care Teams Staff Physician Relationship Specialty Start Date End Date Mairela Schmidt MD PCP - General Internal Medicine 08/14/11 01/24/21 Cyril Loja MD PCP - General Internal Medicine 01/25/21 12/17/21 Nakia Tom MD [address] [place], [place] [phone] PCP - General Internal Medicine 12/18/21 Ronnie Sahu MD [address] [place] [place] [address] 26831 Specialist Nephrology 05/07/22 Whitney Armendariz [address] [place] [address]1009 Specialist Podiatry 05/07/22 Panda Munguia [address] [place], [place] [phone] Specialist Thoracic Surgery 12/18/22 Rich Mera MD [address] [place] [address]00 Specialist Cardiology 12/27/22 Caitie Gross [address] [place] [address]04 Specialist Ophthalmology 12/27/22 Angel Nixon MD [address] [place] [address]84 Specialist Pulmonology 12/27/22 documented as of this encounter
--- OUTSIDE RECORDS SUMMARY | 2024-08-06 17:29 | XMS_ITS | Encounter Summary ---
Author Organization [facility] Address [address] [place] [address] Care Team Providers Care Editorial Writer Name Role Phone Mariela Schmidt MD Primary Care Provider Cyril Ramos MD Primary Care Provider Nakia Kahn MD Primary Care Prov ider Ronnie Sahu MD Unavailable [phone] Black, Whitney Unavailable Unavailable Panda Munguia Unavailable Unavailable Rich Mera MD Unavailable Caitie Talbot Unavailable Unavailable Angel Nixon MD Unavailable Unavailable Encounter Details Date Type Department Care Team Description 01/03/2018 Personnel Psychologist Report Medical Records [address] [place] [address] Ryan Llamas Social History Tobacco Use Types Packs/Day Years [...] on filedocumented in this encounter Care Teams Editorial Writer Relationship Specialty Start Date End Date Mariela Schmidt MD PCP - General Internal Medicine 08/14/11 01/24/21 Cyril Loja MD PCP - General Internal Medicine 01/25/21 12/17/21 Nakia oTm MD [address] [place] [address] PCP - General Internal Medicine 12/18/21 Ronnie Sahu MD [address] [place] [address] 11077 Specialist Nephrology 05/07/22 Whitney Armendariz [address] [place] [address] 34160 Specialist Podiatry 05/07/22 Panda Munguia [address] [place] [address] 07447 Specialist Thoracic Surgery 12/18/22 Rich Mera MD [address] [place] [address] 48601 Specialist Cardiology 12/27/22 Caitie Gross [address] [place] [address] 09668 Specialist Ophthalmology 12/27/22 Angel Nixon MD [address] [place] [address] Specialist Pulmonology 12/27/22 documented as of this encounter
--- OUTSIDE RECORDS SUMMARY | 2024-08-06 17:29 | XMS_ITS | Encounter Summary ---
Author Organization [facility] Address [address] [place] [address] Care Team Providers Care Boom Crane Operator Name Role Phone Cyril Loja MD Primary Care Provider Nakia Kahn MD Primary Care Prov ider Ronnie Sahu MD Unavailable [phone] Black, Whitney Unavailable Unavailable Panda Munguia Unavailable Unavailable Rich Mera MD Unavailable Caitie Talbot Unavailable Unavailable Angel Nixon MD Unavailable Unavailable Reason for Visit * Reason Comments E-prescribe Rx Request Encounter Details Date Type Department Care Team Description 10/13/2021 Refill Adult Medicine [address] [address] Perla Carrasco PA-C E-prescribe Rx Request Social History Tobacco Use [...] file Not on file Not on file COVID-19 Exposure Response Date Recorded In the last 10 days, have yo u been in contact with someone who was confirmed or suspected to have Coronavirus/COVID-19? No / Unsure 09/19/2021 2:34 PM EDT documented as of this encounter Miscellaneous Notes * Telephone Encounter - Merry Ambrose 10/16/2021 9:12 AM EDT Last office visit 09/19/21 Next office visit 01/19/[address] Collier Lab Results Component Value Date NA 138 09/19/2021 K 4.0 09/19/2021 CO2 24 09/19/2021 CL 107 09/19/2021 BUN 22 09/19/2021 CREAT 1.70 09/19/2021 GLU 174 09/19/2021 CA 9.3 09/19/2021 GFR 40 09/19/2021 Lab Results Component Value Date CHOL 97 09/19/2021 LDL 22 09/19/2021 HDL 21 09/19/2021 TRIG 271 09/19/2021 SGOT 20 09/19/2021 SGPT 22 09/19/2021 * Telephone Encounter - Chely Rodríguez - 10/16/2021 8:58 AM EDT Patient would like script to be: E-PRESCRIBED/FAXED TO PHARMACY WHEN WAS THE PATIENT'S LAST APPOINTMENT IN ADULT MEDICINE? 09/19/21 WHEN WAS THE LAST TIME THE PATIENT SAW THEIR PCP? Same as above Does patient have an upcoming appointment? Yes 01/19/22 (THE MEDICATION REQUESTED IS ON THE MED LIST ABOVE) All of the medications requested were on the CURRENT MEDS list Did you check the Pharmacy information above?: YES Patient wants: 90 -day supply Is this a mail order prescription request ? YES If the refill is from a FAXED refill request what is the RX # listed on the fax? N/A Patients current insurance carrier is: Payor[place] [employer] / Plan: BCBS MDCR-ADV PPO $10/$45 [place] / Product Type: MEDICARE [id number] documented in this encounter Plan of Treatment Not on file documented as of this encounter Visit Diagnoses Not on filedocumented in this encounter Care Teams Boom Crane Operator Relationship Specialty Start Date End Date Cyril Loja MD PCP - General Internal Medicine 01/25/21 12/17/21 Nakia Tom MD [address] [place] [address] PCP - General Internal Medicine 12/18/21 Ronnie Sahu MD [address] [place] [address] 72135 Specialist Nephrology 05/07/22 Whitney Armendariz [address] [place] [address] 33456 Specialist Podiatry 05/07/22 Panda Munguia [address] [place] [address] 18529 Specialist Thoracic Surgery 12/18/22 Rich Mera MD [address] [place] [address]114 Specialist Cardiology 12/27/22 Caitie Gross [address] [place] [address] 79807 Specialist Ophthalmology 12/27/22 Angel Nixon MD [address] [place] [address] Specialist Pulmonology 12/27/22 documented as of this encounter
--- OUTSIDE RECORDS SUMMARY | 2024-08-06 17:30 | XMS_ITS | Encounter Summary ---
Author Organization [facility] Address [address] [place] [address] Care Team Providers Care Procedure Tech Name Role Phone Mariela Schmidt MD Primary Care Provider Cyril Ramos MD Primary Care Provider Nakia Kahn MD Primary Care Prov ider Ronnie Sahu MD Unavailable [phone] Black, Whitney Unavailable Unavailable Panda Munguia Unavailable Unavailable Rich Mera MD Unavailable Caitie Talbot Unavailable Unavailable Angel Nixon MD Unavailable Unavailable Encounter Details Date Type Department Care Team Description 05/05/2019 Teacher Selection Specialist Report Medical Records [address] [place] [address] Rhys Moore MD Social History Tobacco Use Types Packs/Day [...] on filedocumented in this encounter Care Teams Procedure Tech Relationship Specialty Start Date End Date Mariela Schmidt MD PCP - General Internal Medicine 08/14/11 01/24/21 Cyril Loja MD PCP - General Internal Medicine 01/25/21 12/17/21 Nakia Tom MD [address] [place] [address] PCP - General Internal Medicine 12/18/21 Ronnie Sahu MD [address] [place] [address] 88929 Specialist Nephrology 05/07/22 Whitney Armendariz [address] [place] [address] 60755 Specialist Podiatry 05/07/22 Panda Munguia [address] [place] [address] 94708 Specialist Thoracic Surgery 12/18/22 Rich Mera MD [address] [place] [address] 66710 Specialist Cardiology 12/27/22 Caitie Gross [address] [place] [address] Specialist Ophthalmology 12/27/22 Angel Nixon MD [address] [place] [address] Specialist Pulmonology 12/27/22 documented as of this encounter
--- OUTSIDE RECORDS SUMMARY | 2024-08-06 17:30 | XMS_ITS | Encounter Summary ---
Author Organization [facility] Address [address] [place] [address] Care Team Providers Care Chemistry Laboratory Technician Name Role Phone Nakia Tom MD Primary Care Prov ider Ronnie Sahu MD Unavailable [phone] Black, Whitney Unavailable Unavailable Panda Munguia Unavailable Unavailable Rich Mera MD Unavailable Caitie Talbot Unavailable Unavailable Angel Nixon MD Unavailable Unavailable Reason for Visit * Reason Onset Date Comments REFERRAL 12/27/2021 Pulmonary pt wan ts to see Dr. Angel Nixon at [address] [place] [address] Encounter Details Date Type Department Care Team Description 12/27/2021 Pt. Non Urgent Medical Question Adult Medicine [address] [address] Nakia Tom MD [address] [place] [address] [phone] Social History Tobacco Use Types Packs/Day Years [...] suspected to have Coronavirus/COVID-19? No / Unsure 12/11/2021 12:54 PM EDT documented as of this encounter Miscellaneous Notes * Telephone Encounter - Liudmila Sauceda M.A. - 12/28/2021 7:59 AM EDTFrom: Ian Chapman To: Tiffani Rankin Sent: 12/27/2021 11:36 AM EDT Subject: Referral Would you please send a referral letter, and a copy of the CT scans (2) results to: Dr. Angel Nixon [address] [place] [address] I am off the last round of anti-biotics and an occasional dry cough has returned. I have not received any communications from the specialist that was sent an urgent referral fro frank Agarwal two weeksago. BC[employer] listed this doctor as a good referral. Thank you for your assistance. And please pass along my thanks to Keven Jaffe, she has consistently jonas great professional to work with. Thanks, John Chapman documented in this encounter Plan of Treatment Not on file documented as of this encounter Visit Diagnoses Not on filedocumented in this encounter Care Teams Chemistry Laboratory Technician Relationship Specialty Start Date End Date Nakia Tom MD [address] [place] [address] PCP - General Internal Medicine 12/18/21 Ronnie Sahu MD [address] [place] [address]215 Specialist Nephrology 05/07/22 Whitney Armendariz [address] [place] [address]77 Specialist Podiatry 05/07/22 Panda Munguia [address] [place] [address] 20848 Specialist Thoracic Surgery 12/18/22 Rich Mera MD [address] [place] [address] 49433 Specialist Cardiology 12/27/22 Caitie Gross [address] [place], [place] [phone] Specialist Ophthalmology 12/27/22 Angel Nixon MD [address] [place] [address] Specialist Pulmonology 12/27/22 documented as of this encounter
--- OUTSIDE RECORDS SUMMARY | 2024-08-06 17:30 | XMS_ITS | Encounter Summary ---
Author Organization [facility] Address [address] [place] [address] Care Team Providers Care Sonoscope Operator Name Role Phone Mariela Schmidt MD Primary Care Provider Cyril Ramos MD Primary Care Provider Nakia Kahn MD Primary Care Prov ider Ronnie Sahu MD Unavailable [phone] Black, Whitney Unavailable Unavailable Sonidamauricio, Panda Unavailable Unavailable Rich Mera MD Unavailable Caitie Talbot Unavailable Unavailable Angel Nixon MD Unavailable Unavailable Encounter Details Date Type Department Care Team Description 10/25/2020 Pt. Non Urgent Medical Question Adult Medicine [address] [phone] Chely Jaffe PA-C [address] [place] [address] [phone] Social History Tobacco Use Types Packs/Day Years [...] Exposure Response Date Recorded In the last month, have you been in contact with someone who was confirmed or suspected to have Coronavirus / COVID-19? No / Unsure 10/03/2020 10:36 AM EDT documented as of this encounter Plan of Treatment Not on file documented as of this encounter Visit Diagnoses Not on filedocumented in this encounter Care Teams Sonoscope Operator Relationship Specialty Start Date End Date Mariela Schmidt MD PCP - General Internal Medicine 08/14/11 01/24/21 Cyril Loja MD PCP - General Internal Medicine 01/25/21 12/17/21 Nakia Tom MD [address] [place] [address]65 PCP - General Internal Medicine 12/18/21 Ronnie Sahu MD [address] [place] [address] 47546 Specialist Nephrology 05/07/22 Whitney Armendariz [address] [place] [address] 86414 Specialist Podiatry 05/07/22 Panda Munguia [address] [place] [address] 25426 Specialist Thoracic Surgery 12/18/22 Rich Mera MD [address] [place] [address] 33665 Specialist Cardiology 12/27/22 Caitie Gross [address] [place] [address] 57415 Specialist Ophthalmology 12/27/22 Angel Nixon MD [address] [place] [address] 19752 Specialist Pulmonology 12/27/22 documented as of this encounter
--- OUTSIDE RECORDS SUMMARY | 2024-08-06 17:30 | XMS_ITS | Encounter Summary ---
Author Organization [facility] Address [address] [place] [address] Care Team Providers Care Science Analyst Name Role Phone Mariela Schmidt MD Primary Care Provider Cyril Ramos MD Primary Care Provider Nakia Kahn MD Primary Care Prov ider Ronnie Sahu MD Unavailable [phone] Black, Whitney Unavailable Unavailable Panda Munguia Unavailable Unavailable Rich Mera MD Unavailable Caitie Talbot Unavailable Unavailable Angel Nixon MD Unavailable Unavailable Encounter Details Date Type Department Care Team Description 08/01/2015 Real Estate Leasing Manager Report Medical Records [address] [place] [address] Black, Whitney Social History Tobacco Use Types Packs/Day Years [...] on filedocumented in this encounter Care Teams Science Analyst Relationship Specialty Start Date End Date Mariela Schmidt MD PCP - General Internal Medicine 08/14/11 01/24/21 Cyril Loja MD PCP - General Internal Medicine 01/25/21 12/17/21 Nakia Tom MD [address] [place] [address] 48950 PCP - General Internal Medicine 12/18/21 Ronnie Sahu MD [address] [place] [address] 60443 Specialist Nephrology 05/07/22 Whitney Armendariz [address] [place] [address] 30464 Specialist Podiatry 05/07/22 Panda Munguia [address] [place] [address] 62143 Specialist Thoracic Surgery 12/18/22 Rich Mera MD [address] [place] [address] 54904 Specialist Cardiology 12/27/22 Caitie Gross [address] [place] [address] 28032 Specialist Ophthalmology 12/27/22 Angel Nixon MD [address] [place] [address]109 Specialist Pulmonology 12/27/22 documented as of this encounter
--- OUTSIDE RECORDS SUMMARY | 2024-08-06 17:30 | XMS_ITS | Encounter Summary ---
Author Organization [facility] Address [address] [place] [address] Care Team Providers Care Gate Attendant Name Role Phone Mariela Schmidt MD Primary Care Provider Cyril Ramos MD Primary Care Provider Nakia Kahn MD Primary Care Prov ider Ronnie Sahu MD Unavailable [phone] Black, Whitney Unavailable Unavailable Nilda Panda Unavailable Unavailable Rich Mera MD Unavailable Caitie Talbot Unavailable Unavailable Angel Nixon MD Unavailable Unavailable Reason for Visit * Reason Onset Date Comments refill request 12/30/2015 Encounter Details Date Type Department Care Team Description 12/30/2015 Refill Adult Medicine [address] [phone] Mariela Schmidt MD refill request Social History Tobacco Use Types Packs/Day Years [...] encounter Miscellaneous Notes * Telephone Encounter - June Sandy M.A. - 12/30/2015 11:28 AM EDT Glipizide was sent to pharmacy 11/21/2015. Pt states pharmacy said they do not have rx and pt wouldlike 90 day supply. Component Value Date HGBA1C 8.8 10/15/2015 MALBUR 9.7 06/11/2015 MALBCR 11.9 06/11/2015 CHOL 98 10/15/2015 LDL TNP 06/11/2015 HDL 19 10/15/2015 TRIG 473 10/15/2015 GLU 381 06/11/2015 CREAT 1.0 06/11/2015 * Telephone Encounter - Mili Nieto - 12/30/2015 11:23 AM EDT Patient would like script to be: E-PRESCRIBED/FAXED TO PHARMACY WHEN WAS THE PATIENT'S LAST APPOINTMENT IN ADULT MEDICINE? 11/17/15 WHEN WAS THE LAST TIME THE PATIENT SAW THEIR PCP? Same as above Does patient have an upcoming appointment? Yes 04/10/16 (THE MEDICATION REQUESTED IS ON THE MED LIST ABOVE) All of the medications requested were on the CURRENT MEDS list Did you check the Pharmacy information above?: YES Patient wants: 90 -day supply Is this a mail order prescription request ? NO Patients current insurance carrier is: Payor: [place] P[place] / Plan: [facility] MDCR-ADV PPO $20/$40 [place] / Product Type: MEDICARE [id number] documented in this encounter Plan of Treatment Not on file documented as of this encounter Visit Diagnoses Not on filedocumented in this encounter Care Teams Gate Attendant Relationship Specialty Start Date End Date Mariela Schmidt MD PCP - General Internal Medicine 08/14/11 01/24/21 Cyril Loja MD PCP - General Internal Medicine 01/25/21 12/17/21 Nakia Tom MD [address] [place] [address] 75071 PCP - General Internal Medicine 12/18/21 Ronnie Sahu MD [address] [place] [address] 22131 Specialist Nephrology 05/07/22 Whitney Armendariz [address] [place] [address] 43849 Specialist Podiatry 05/07/22 Panda Munguia [address] [place] [address] 52547 Specialist Thoracic Surgery 12/18/22 Rich Mera MD [address] [place] [address] 73071 Specialist Cardiology 12/27/22 Caitie Gross [address] [place] [address] 54215 Specialist Ophthalmology 12/27/22 Angel Nixon MD [address] [place] [address] 57539 Specialist Pulmonology 12/27/22 documented as of this encounter
--- OUTSIDE RECORDS SUMMARY | 2024-08-06 17:30 | XMS_ITS | Encounter Summary ---
Author Organization [facility] Address [address] [place] [address] Care Team Providers Care Evp Global Product Leadership Name Role Phone Mariela Schmidt MD Primary Care Provider Cyril Ramos MD Primary Care Provider Nakia Kahn MD Primary Care Prov ider Ronnie Sahu MD Unavailable [phone] Black, Whitney Unavailable Unavailable Sandy Munguiavash Unavailable Unavailable Rich Mera MD Unavailable Caitie Talbot Unavailable Unavailable Angel Nixon MD Unavailable Unavailable Encounter Details Date Type Department Care Team Description 08/25/2019 Geophysical Manager Report Medical Records [address] [place] [address] Rich Mera MD Social History Tobacco Use Types Packs/Day [...] on filedocumented in this encounter Care Teams Evp Global Product Leadership Relationship Specialty Start Date End Date Mariela Schmidt MD PCP - General Internal Medicine 08/14/11 01/24/21 Cyril Loja MD PCP - General Internal Medicine 01/25/21 12/17/21 Nakia Tom MD [address] [place] [address] 97387 PCP - General Internal Medicine 12/18/21 Ronnie Sahu MD [address] [place] [address] 77501 Specialist Nephrology 05/07/22 Whitney Armendariz [address] [place] [address] 85581 Specialist Podiatry 05/07/22 Panda Munguia [address] [place] [address] 69150 Specialist Thoracic Surgery 12/18/22 Rich Mera MD [address] [place] [address] 08538 Specialist Cardiology 12/27/22 Caitie Gross [address] [place] [address] 78218 Specialist Ophthalmology 12/27/22 Angel Nixon MD [address] [place] [address] 23410 Specialist Pulmonology 12/27/22 documented as of this encounter
--- OUTSIDE RECORDS SUMMARY | 2024-08-06 17:30 | XMS_ITS | Encounter Summary ---
Author Organization [facility] Address [address] [place] [address] Care Team Providers Care Keg Filler Name Role Phone Mariela Schmidt MD Primary Care Provider Cyril Ramos MD Primary Care Provider Nakia Kahn MD Primary Care Prov ider Ronnie Sahu MD Unavailable [phone] Black, Whitney Unavailable Unavailable Nilda Panda Unavailable Unavailable Rich Mera MD Unavailable Caitie Talbot Unavailable Unavailable Angel Nixon MD Unavailable Unavailable Encounter Details Date Type Department Care Team Description 05/28/2019 Orders Only Medical Records [address] [place] [address] Mariela Schmidt MD Social History Tobacco Use Types [...] on file documented as of this encounter Procedures Procedure Name Priority Date/Time Associated Diagnosis Comments OUTSIDE LAB Routine 05/26/2019 documented in this encounter Results * OUTSIDE LAB (05/26/2019) Mariela Schmidt MD LAB documented in this encounter Visit Diagnoses Not on filedocumented in this encounter Care Teams Keg Filler Relationship Specialty Start Date End Date Mariela Schmidt MD PCP - General Internal Medicine 08/14/11 01/24/21 yCril Loja MD PCP - General Internal Medicine 01/25/21 12/17/21 Nakia Tom MD [address] [place] [address] 18204 PCP - General Internal Medicine 12/18/21 Ronnie Sahu MD [address] [place] [address] 67805 Specialist Nephrology 05/07/22 Whitney Armendariz [address] [place] [address] 71787 Specialist Podiatry 05/07/22 Panda Munguia [address] [place] [address] 69747 Specialist Thoracic Surgery 12/18/22 Rich Mera MD [address] [place] [address] 22405 Specialist Cardiology 12/27/22 Caitie Gross [address] [place] [address] 07323 Specialist Ophthalmology 12/27/22 Angel Nixon MD [address] [place] [address] 29428 Specialist Pulmonology 12/27/22 documented as of this encounter
--- OUTSIDE RECORDS SUMMARY | 2024-08-06 17:30 | XMS_ITS | Encounter Summary ---
Author Organization [facility] Address [address] [place] [address] Care Team Providers Care Media Reporter Name Role Phone Mariela Schmidt MD Primary Care Provider Cyril Ramos MD Primary Care Provider Nakia Kahn MD Primary Care Prov ider Ronnie Sahu MD Unavailable [phone] Black, Whitney Unavailable Unavailable Sandy Munguiavash Unavailable Unavailable Rich Mera MD Unavailable Caitie Talbot Unavailable Unavailable Angel Nixon MD Unavailable Unavailable Encounter Details Date Type Department Care Team Description 09/10/2016 Bilingual Interpreter Report Medical Records [address] [place] [address] 33148 Rich Mera MD Social History Tobacco Use [...] on filedocumented in this encounter Care Teams Media Reporter Relationship Specialty Start Date End Date Mariela Schmidt MD PCP - General Internal Medicine 08/14/11 01/24/21 Cyril Loja MD PCP - General Internal Medicine 01/25/21 12/17/21 Nakia Tom MD [address] [place] [address] 02819 PCP - General Internal Medicine 12/18/21 Ronnie Sahu MD [address] [place] [address] 15658 Specialist Nephrology 05/07/22 Whitney Armendariz [address] [place], [place] [phone] Specialist Podiatry 05/07/22 Panda Munguia [address] [place] [address] 86394 Specialist Thoracic Surgery 12/18/22 Rich Mera MD [address] [place] [address] 62825 Specialist Cardiology 12/27/22 Caitie Gross [address] [place] [address] 87815 Specialist Ophthalmology 12/27/22 Angel Nixon MD [address] [place] [address] 47349 Specialist Pulmonology 12/27/22 documented as of this encounter
--- OUTSIDE RECORDS SUMMARY | 2024-08-06 17:30 | XMS_ITS | Encounter Summary ---
Author Organization [facility] Address [address] [place] [address] Care Team Providers Care School Photographer Name Role Phone Mariela Schmidt MD Primary Care Provider Cyril Ramos MD Primary Care Provider Nakia Kahn MD Primary Care Prov ider Ronnie Sahu MD Unavailable [phone] Black, Whitney Unavailable Unavailable Panda Munguia Unavailable Unavailable Rich Mera MD Unavailable Caitie Talbot Unavailable Unavailable Angel Nixon MD Unavailable Unavailable Encounter Details Date Type Department Care Team Description 09/15/2014 Transfer Records Medical Records [address] [place] [address] Social History Tobacco Use Types Packs/Day Years [...] on filedocumented in this encounter Care Teams School Photographer Relationship Specialty Start Date End Date Mariela Schmidt MD PCP - General Internal Medicine 08/14/11 01/24/21 Cyril Loja MD PCP - General Internal Medicine 01/25/21 12/17/21 Nakia Tom MD [address] [place] [address] 31574 PCP - General Internal Medicine 12/18/21 Ronnie Sahu MD [address] [place] [address] 87650 Specialist Nephrology 05/07/22 Whitney Armendariz [address] [place] [address] 91249 Specialist Podiatry 05/07/22 Panda Munguia [address] [place] [address] 81461 Specialist Thoracic Surgery 12/18/22 Rich Mera MD [address] [place] [address] 26843 Specialist Cardiology 12/27/22 Caitie Gross [address] [place] [address] 10999 Specialist Ophthalmology 12/27/22 Angel Nixon MD [address] [place] [address] 62107 Specialist Pulmonology 12/27/22 documented as of this encounter
--- OUTSIDE RECORDS SUMMARY | 2024-08-06 17:30 | XMS_ITS | Encounter Summary ---
Author Organization [facility] Address [address] [place] [address] Care Team Providers Care Immigration Services Officer Name Role Phone Mariela Schmidt MD Primary Care Provider Cyril Ramos MD Primary Care Provider Nakia Kahn MD Primary Care Prov ider Ronnie Sahu MD Unavailable [phone] Black, Whitney Unavailable Unavailable Panda Munguia Unavailable Unavailable Rich Mera MD Unavailable Caitie Talbot Unavailable Unavailable Angel Nixon MD Unavailable Unavailable Encounter Details Date Type Department Care Team Description 07/21/2014 [facility] Medical Records [address] [place] [address] 72972 Abstract, Provider Social History Tobacco Use Types Packs/Day Years [...] on filedocumented in this encounter Care Teams Immigration Services Officer Relationship Specialty Start Date End Date Mariela Schmidt MD PCP - General Internal Medicine 08/14/11 01/24/21 Cyril Loja MD PCP - General Internal Medicine 01/25/21 12/17/21 Nakia Tom MD [address] [place] [address] 08577 PCP - General Internal Medicine 12/18/21 Ronnie Sahu MD [address] [place] [address] 17983 Specialist Nephrology 05/07/22 Whitney Armendariz [address] [place] [address] 94355 Specialist Podiatry 05/07/22 Panda Munguia [address] [place] [address] 89938 Specialist Thoracic Surgery 12/18/22 Rich Mera MD [address] [place] [address] 67621 Specialist Cardiology 12/27/22 Caitie Gross [address] [place] [address] 06367 Specialist Ophthalmology 12/27/22 Agnel Nixon MD [address] [place] [address] 48854 Specialist Pulmonology 12/27/22 documented as of this encounter
--- OUTSIDE RECORDS SUMMARY | 2024-08-06 17:30 | XMS_ITS | Encounter Summary ---
Author Organization [facility] Address [address] [place] [address] Care Team Providers Care Test Development Engineer Name Role Phone Mraiela Schmidt MD Primary Care Provider Cyril Ramos MD Primary Care Provider Nakia Kahn MD Primary Care Prov ider Ronnie Sahu MD Unavailable [phone] Black, Whitney Unavailable Unavailable Nilda Panda Unavailable Unavailable Rich Mera MD Unavailable Caitie Talbot Unavailable Unavailable Angel Nixon MD Unavailable Unavailable Encounter Details Date Type Department Care Team Description 08/05/2020 Teachers' Assistant Report Medical Records [address] [place] [address] 36226 Blu York MD Social History Tobacco Use [...] have Coronavirus / COVID-19? No / Unsure 08/02/2020 12:09 PM EDT documented as of this encounter Plan of Treatment Not on file documented as of this encounter Visit Diagnoses Not on filedocumented in this encounter Care Teams Test Development Engineer Relationship Specialty Start Date End Date Mariela Schmidt MD PCP - General Internal Medicine 08/14/11 01/24/21 Cyril Loja MD PCP - General Internal Medicine 01/25/21 12/17/21 Nakia Tom MD [address] [place] [address] 77149 PCP - General Internal Medicine 12/18/21 Ronnie Sahu MD [address] [place] [address] 31942 Specialist Nephrology 05/07/22 Whitney Armendariz [address] [place] [address] 12383 Specialist Podiatry 05/07/22 Panda Munguia [address] [place] [address] 51727 Specialist Thoracic Surgery 12/18/22 Rich Mera MD [address] [place] [address] 58202 Specialist Cardiology 12/27/22 Caitie Gross [address] [place] [address] 32926 Specialist Ophthalmology 12/27/22 Angel Nixon MD [address] [place] [address] 67828 Specialist Pulmonology 12/27/22 documented as of this encounter
--- OUTSIDE RECORDS SUMMARY | 2024-08-06 17:30 | XMS_ITS | Encounter Summary ---
Author Organization [facility] Address [address] [place] [address] Care Team Providers Care Head Well Puller Name Role Phone Cyril Loja MD Primary Care Provider Nakia Kahn MD Primary Care Prov ider Ronnie Sahu MD Unavailable [phone] Black, Whitney Unavailable Unavailable Panda Munguia Unavailable Unavailable Rich Mera MD Unavailable Caitie Talbot Unavailable Unavailable Angel Nixon MD Unavailable Unavailable Reason for Visit * Reason Onset Date Comments Mychart Rx Refill 10/17/2021 Encounter Details Date Type Department Care Team Description 10/17/2021 Refill Adult Medicine [address] [address] Chely Jaffe PA-C [address] [place] [address] 33703 Mychart Rx Refill Social History Tobacco Use Types Packs/Day Years [...] suspected to have Coronavirus/COVID-19? No / Unsure 10/19/2021 9:41 AM EDT documented as of this encounter Miscellaneous Notes * Telephone Encounter - Carolina Becerril M.A. - 10/20/2021 12:56 PM EDT Lab Results Component Value Date HGBA1C 6.7 09/19/2021 MALBUR 152.0 09/19/2021 MALBCR 63.5 09/19/2021 CHOL 97 09/19/2021 LDL 22 09/19/2021 HDL 21 09/19/2021 TRIG 271 09/19/2021 GLU 174 09/19/2021 CREAT 1.70 09/19/2021 INES 09/19/21 NOV 01/19/22 - w/ NEW PCP documented in this encounter Plan of Treatment Not on file documented as of this encounter Visit Diagnoses Not on filedocumented in this encounter Care Teams Head Well Puller Relationship Specialty Start Date End Date Cyril Loja MD PCP - General Internal Medicine 01/25/21 12/17/21 Nakia Tom MD [address] [place] [address] 55473 PCP - General Internal Medicine 12/18/21 Ronnie Sahu MD [address] [place] [address] 74171 Specialist Nephrology 05/07/22 Whitney Armendariz [address] [place] [address] 18152 Specialist Podiatry 05/07/22 Panda Munguia [address] [place] [address] 22682 Specialist Thoracic Surgery 12/18/22 Rich Mera MD [address] [place] [address] 72410 Specialist Cardiology 12/27/22 Caitie Gross [address] [place] [address] 33996 Specialist Ophthalmology 12/27/22 Angel Nixon MD [address] [place] [address] 87521 Specialist Pulmonology 12/27/22 documented as of this encounter
--- OUTSIDE RECORDS SUMMARY | 2024-08-06 17:30 | XMS_ITS | Encounter Summary ---
[facility] Organization [facility] Address [address] [place] [address] Care Team Providers Care Director Of Officiating Name Role Phone Nakia Tom MD Primary Care Prov ider Ronnie Sahu MD Unavailable [phone] Black, Whitney Unavailable Unavailable Panda Munguia Unavailable Unavailable Rich Mera MD Unavailable Caitie Talbot Unavailable Unavailable Angel Nixon MD Unavailable Unavailable Encounter Details Date Type Department Care Team Description 12/06/2022 Hospital Medical Records [address] [place] [address] 01299 Social History Tobacco Use Types Packs/Day Years [...] on filedocumented in this encounter Care Teams Director Of Officiating Relationship Specialty Start Date End Date Nakia Tom MD [address] [place] [address] [phone] PCP - General Internal Medicine 12/18/21 Ronnie Sahu MD [address] [place] [address] [phone] Specialist Nephrology 05/07/22 Whitney Armendariz [address] [place] [address] Specialist Podiatry 05/07/22 Panda Munguia [address] [place] [address] 34470 Specialist Thoracic Surgery 12/18/22 Rich Mera MD [address] [place] [address] 61240 Specialist Cardiology 12/27/22 Caitie Gross [address] [place] [address] 32202 Specialist Ophthalmology 12/27/22 Angel Nixon MD [address] [place] [address] 94716 Specialist Pulmonology 12/27/22 documented as of this encounter
--- OUTSIDE RECORDS SUMMARY | 2024-08-06 17:30 | XMS_ITS | Encounter Summary ---
Author Organization [facility] Address [address] [place] [address] Care Team Providers Care Early Childhood Assistant Name Role Phone Mariela Schmidt MD Primary Care Provider Cyril Ramos MD Primary Care Provider Nakia Kahn MD Primary Care Prov ider Ronnie Sahu MD Unavailable [phone] Black, Whitney Unavailable Unavailable Nilda Panda Unavailable Unavailable Rich Mera MD Unavailable Caitie Talbot Unavailable Unavailable Angel Nixon MD Unavailable Unavailable Encounter Details Date Type Department Care Team Description 08/20/2014 Refill Adult Medicine [address] [address] Mariela Schmidt MD Social History Tobacco Use [...] on filedocumented in this encounter Care Teams Early Childhood Assistant Relationship Specialty Start Date End Date Mariela Schmidt MD PCP - General Internal Medicine 08/14/11 01/24/21 Cyril Loja MD PCP - General Internal Medicine 01/25/21 12/17/21 Nakia Tom MD [address] [place] [address] 28811 PCP - General Internal Medicine 12/18/21 Ronnie Sahu MD [address] [place] [address] 42441 Specialist Nephrology 05/07/22 Whitney Armendariz [address] [place] [address] 32813 Specialist Podiatry 05/07/22 Panda Munguia [address] [place] [address] 25235 Specialist Thoracic Surgery 12/18/22 Rich Mera MD [address] [place] [address] 27000 Specialist Cardiology 12/27/22 Caitie Gross [address] [place] [address] 38775 Specialist Ophthalmology 12/27/22 Angel Nixon MD [address] [place] [address] 52662 Specialist Pulmonology 12/27/22 documented as of this encounter
--- OUTSIDE RECORDS SUMMARY | 2024-08-06 17:30 | XMS_ITS | Encounter Summary ---
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 No / Unsure 01/14/2020 2:51 PM EDT documented as of this encounter Plan of Treatment Not on file documented as of this encounter Visit Diagnoses Not on filedocumented in this encounter Care Teams Business Development Representative Relationship Specialty Start Date End Date Mariela Schmidt MD PCP - General Internal Medicine 08/14/11 01/24/21 Cyril Loja MD PCP - General Internal Medicine 01/25/21 12/17/21 Nakia Tom MD [address] [place] [address] 23896 PCP - General Internal Medicine 12/18/21 Ronnie Sahu MD [address] [place] [address] 96866 Specialist Nephrology 05/07/22 Whitney Armendariz [address] [place] [address] 05512 Specialist Podiatry 05/07/22 Panda Munguia [address] [place] [address] 13818 Specialist Thoracic Surgery 12/18/22 Rich Mera MD [address] [place] [address] 41955 Specialist Cardiology 12/27/22 Caitie Gross [address] [place] [address] 63303 Specialist Ophthalmology 12/27/22 Angel Nixon MD [address] [place] [address] 25367 Specialist Pulmonology 12/27/22 documented as of this encounter
--- OUTSIDE RECORDS SUMMARY | 2024-08-06 17:30 | XMS_ITS | Encounter Summary ---
Author Organization [employer] [facility] Address [address] [place] [address] Care Team Providers Care Embedded Developer Name Role Phone Jian Lang MD Primary Care Provider [phone] Carlitos Weeks MD Primary Care Provider Mariela Martel MD Primary Care Provider Cyril Ramos MD Primary Care Provider Nakia Kahn MD Primary Care Prov ider Ronnie Sahu MD Unavailable [phone] Black, Whitney Unavailable Unavailable Panda Munguia Unavailable Unavailable Rich Mera MD Unavailable Caitie Talbot Unavailable Unavailable Angel Nixon MD Unavailable Unavailable Encounter Details Date Type Department Care Team Description 12/04/2010 Eye Timing Adjuster Report Medical Records [address] [place] [address] 67460 Tommy Phipps MD Social History Tobacco Use Types Packs/Day Years Used Date Smoking Tobacco: Former Smokeless Tobacco: Never Comments:QUIT [address] [...] on filedocumented in this encounter Care Teams Embedded Developer Relationship Specialty Start Date End Date Jian Lang MD [address] [place] [address] 01020 PCP - General 09/20/10 04/19/11 Carlitos Weeks MD [address] [place] [address] 80368 PCP - General Internal Medicine 04/20/11 08/13/11 Mariela Schmidt MD [address] [place] [address] 98424 PCP - General Internal Medicine 08/14/11 01/24/21 Cyril Loja MD [address] [place] [address] 24131 PCP - General Internal Medicine 01/25/21 12/17/21 Nakia Tom MD [address] [place] [address] 89995 PCP - General Internal Medicine 12/18/21 Ronnie Sahu MD [address] [place] [address] 34351 Specialist Nephrology 05/07/22 Whitney Armendariz [address] [place] [address] 53207 Specialist Podiatry 05/07/22 Panda Munguia [address] [place] [address] 58104 Specialist Thoracic Surgery 12/18/22 Rich Mera MD [address] [place] [address] 51711 Specialist Cardiology 12/27/22 Caitie Gross [address] [place] [address] 05123 Specialist Ophthalmology 12/27/22 Angel Nixon MD [address] [place] [address] 19060 Specialist Pulmonology 12/27/22 documented as of this encounter
--- OUTSIDE RECORDS SUMMARY | 2024-08-06 17:30 | XMS_ITS | Encounter Summary ---
Author Organization [facility] Address [address] [place] [address] Care Team Providers Care Cash Clerk Name Role Phone Nakia Tom MD Primary Care Prov ider Ronnie Sahu MD Unavailable [phone] Black, Whitney Unavailable Unavailable Panda Munguia Unavailable Unavailable Rich Mera MD Unavailable Caitie Talbot Unavailable Unavailable Angel Nixon MD Unavailable Unavailable Encounter Details Date Type Department Care Team Description 01/15/2022 Drums Teacher Report Medical Records [address] [place] [address] 27963 Ronnie Sahu MD [address] [place] [address] [phone] Social History Tobacco Use Types Packs/Day Years [...] on filedocumented in this encounter Care Teams Cash Clerk Relationship Specialty Start Date End Date Nakia Tom MD [address] [place] [address] 01020 PCP - General Internal Medicine 12/18/21 Ronnie Sahu MD [address] [place] [address] 61660 Specialist Nephrology 05/07/22 Whitney Armendariz [address] [place] [address] 14209 Specialist Podiatry 05/07/22 Panda Munguia [address] [place] [address] 46131 Specialist Thoracic Surgery 12/18/22 Rich Mera MD [address] [place] [address] 77247 Specialist Cardiology 12/27/22 Caitie Gross [address] [place] [address] 98667 Specialist Ophthalmology 12/27/22 Angel Nixon MD [address] [place] [address] 59836 Specialist Pulmonology 12/27/22 documented as of this encounter
--- OUTSIDE RECORDS SUMMARY | 2024-08-06 17:30 | XMS_ITS | Encounter Summary ---
[facility] Address [address] [place] [address] Care Team Providers Care Whitewater Rafting Guide Name Role Phone Mariela Schmidt MD Primary Care Provider Cyril Ramos MD Primary Care Provider Nakia Kahn MD Primary Care Prov ider Ronnie Sahu MD Unavailable [phone] Black, Whitney Unavailable Unavailable Saadat, Panda Unavailable Unavailable Rich Mera MD Unavailable Caitie Talbot Unavailable Unavailable Angel Nixon MD Unavailable Unavailable Encounter Details Date Type Department Care Team Description 10/27/2012 Pt. Non Urgent Medic al Question Adult Medicine [address] [address] Mariela Schmidt MD Social History Tobacco Use Types Packs/Day Years Used Date Smoking Tobacco: Former Cigarettes 2 30 Smokeless Tobacco: Former Comments:QUIT [address] arted smoking @ age 13 Alcohol Use Standard Drinks/Week Comments No 0 (1 standard drink = 0.6 oz pur e alcohol) Sex Assigned at Date Recorded Not on file Job Start Date Occupation Industry Not on file Not on file Not on file documented as of this encounter Progress Notes * Melissa Chung M.A. - 10/27/2012 3:33 PM EDTFrom: AMADEO POWER To: Mariela Schmidt MD Sent: SatOct 27, 2012 1:36 PM Subject: kidney(?) Hello Doctor, This weekend I experienced a kidney stone type discomfort. Sharp pain in my right side extending down into the groin area, accompanied by an urge to vomit. I did vomit twice and rested after checking for possible appendicitis. The pain went away after three hours and was identical to what I experienced when I passed a kidney stone three years ago, although I did not pass anything, nor did I experience blood in my urine this time. I did have brownish urine (blood) for a day approximately three weeks ago. I recently changed my medication (10 days) to Chlorthalidone and was wondering if it is possible the water pill is affecting my kidneys? If nothing seems out of the norm I will ask that you check it during our next visit. Thanks, John Power documented in this encounter Plan of Treatment Not on file documented as of this encounter Visit Diagnoses Not on filedocumented in this encounter Care Teams Whitewater Rafting Guide Relationship Specialty Start Date End Date Mariela Schmidt MD PCP - General Internal Medicine 08/14/11 01/24/21 Cyril Loja MD PCP - General Internal Medicine 01/25/21 12/17/21 Nakia Tom MD [address] [place] [address] PCP - General Internal Medicine 12/18/21 Ronnie Sahu MD [address] [place] [address] Specialist Nephrology 05/07/22 Whitney Armendariz [address] [place] [address] 82395 Specialist Podiatry 05/07/22 Panda Munguia [address] [place] [address] 10112 Specialist Thoracic Surgery 12/18/22 Rich Mera MD [address] [place] [address] Specialist Cardiology 12/27/22 Caitie Gross [address] [place], [place] [phone] Specialist Ophthalmology 12/27/22 Angel Nixon MD [address] [place] [address] Specialist Pulmonology 12/27/22 documented as of this encounter
--- OUTSIDE RECORDS SUMMARY | 2024-08-06 17:30 | XMS_ITS | Encounter Summary ---
Author Organization [facility] Address [address] [place] [address] Care Team Providers Care Leather Heel Breaster Name Role Phone Mariela Schmidt MD Primary Care Provider Cyril Ramos MD Primary Care Provider Nakia Kahn MD Primary Care Prov ider Ronnie Sahu MD Unavailable [phone] Black, Whitney Unavailable Unavailable Nilda Pnada Unavailable Unavailable Rich Mera MD Unavailable Caitie Talbot Unavailable Unavailable Angel Nixon MD Unavailable Unavailable Encounter Details Date Type Department Care Team Description 07/21/2020 [facility] [address] [phone] Mariela Schmidt MD Social History Tobacco Use [...] encounter Miscellaneous Notes * Telephone Encounter - Maryjane Gore - 07/22/2020 1:08 PM EDT documented in this encounter Plan of Treatment Not on file documented as of this encounter Visit Diagnoses Not on filedocumented in this encounter Care Teams Leather Heel Breaster Relationship Specialty Start Date End Date Mariela Schmidt MD PCP - General Internal Medicine 08/14/11 01/24/21 Cyril Loja MD PCP - General Internal Medicine 01/25/21 12/17/21 Nakia Tom MD [address] [place] [address] 38114 PCP - General Internal Medicine 12/18/21 Ronnie Sahu MD [address] [place] [address] 16828 Specialist Nephrology 05/07/22 Whitney Armendariz [address] [place] [address] 94579 Specialist Podiatry 05/07/22 Panda Munguia [address] [place] [address] 11120 Specialist Thoracic Surgery 12/18/22 Rich Mera MD [address] [place] [address] 86735 Specialist Cardiology 12/27/22 Caitie Gross [address] [place] [address] 40373 Specialist Ophthalmology 12/27/22 Angel Nixon MD [address] [place] [address] 23636 Specialist Pulmonology 12/27/22 documented as of this encounter
--- OUTSIDE RECORDS SUMMARY | 2024-08-06 17:30 | XMS_ITS ---
[facility] Organization [facility] [place] Address [address] [place] [address] Care Team Providers Care Leadership Coach Name Role Phone Nakia Matthew Primary Care Provider Unava ilable Black, Whitney Unavailable [phone] Allergies Allergen (clinical drug ingredient) Drug/Non Drug Allergy documented on EMR Reaction Allergy Type Onset Date Status fluticasone Flonase rapid heart beat Drug Allergy Active REASON FOR VISIT At Risk Footcare, Skin Problem, Painful Toe(s) Medications Medication SIG (Take, Route, Frequency, Duration) Notes Start Date End Date Status SITagliptin Phosphate Not-Taking Ciclopirox Olamine 0.77 % 1 application to affected area Externally Twice a day for 30days 07/09/2011 Not-Taking Umecta 40 % as directed Externally Not-Taking Diovan Not-Taking Lipitor Not-Taking glipiZIDE Not-Taking Januvia 50 MG 2 tablets Orally Once a day for 30 day(s) Not-Taking Aspirin Not-Taking glipiZIDE 5 MG Orally twice a day Not-Taking Simvastatin Not-Taki ng Trulicity 0.75 MG/0.5ML as directed Subcutaneous Active Vitamin D Not-Taking Ciclopirox Olamine 0.77 % 1 application to affected area Externally Twice a day for 30 days 01/30/2018 Not-Taking Ciclopirox Olamine 0.77 % 1 application Externally Twice a day to skin of feet including between the toes for 30 days Active Ciclopirox Olamine 0.77 % 1 application Externally Twice a day for 30 days 03/23/2021 Not-Taking Metoprolol & Diet Manage Prod 100 mg twice a day 50 mgs 2x a day Active One Touch Delica Lancets Active Losartan Potassium 25 MG as directed Orally Once a day Active metFORMIN HCl 500 MG Orally twice a day Active Levothyroxine Sodium 88 MCG Orally Once a day, one hour efore breakfast Active Atorvastatin Calcium 20 MG 1 tablet Orally Once a day Active Eliquis 5 MG Orally twice a day Active amLODIPine Besylate 10 MG 1 tablet Orally Once a day at supper Active Apixaban 5 MG as directed Orally Not-Taking Fish Oil Active Pantoprazole Sodium 40 MG 1 tablet 1/2 to 1 hour before morning meal Orally Once a day Active Isosorbide Dinitrate 30 MG 1 tablet Orally Twice a day Not-Taking Social History Tobacco Use: Social History Observation Description Date Details (start date - stop date) Never Smoker NA - NA Tobacco Use/Smoking Question Answer Notes Are you a: nonsmoker Additional Findings: Tobacco Non-User Current no n-smoker Tobacco use other than smoking: Question Answer Notes Are you an other tobacco user? No Problems Problem Type SNOMED Code ICD Code Onset Dates Problem Status W/U Status Risk Notes Problem Acquired hammer toe of left foot (1090118122311381) Other hammer toe(s) (acquired), left foot (M20.42) Active confirmed Problem Localized, primary osteoarthritis of the ankle and/or foot (491602699) Arthritis of joint of lesser toe, left (M19.072) Active confirmed Vital Signs Height 0cz07ic in 06/01/2024 Weight 194 lbs 06/01/2024 BMI 27.05 kg/m2 06/01/2024 Blood pressure systolic 125 mm Hg 06/01/19 25 Blood pressure diastolic 74 mm Hg 025 Procedures Procedure Date Ordered Date Performed Result Body Sit e 25600-AKVWFLV NAIL, 6 OR MORE 06/01/2024 N/A 16894-KXCA SKIN LESIONS, 2 TO 4 06/01/2024 N/A Encounters Encounter Location Date Provider Diagnosis [facility] [place] [address] [place] [address] 06/01/2024 Whitney Black Tinea pedis of both feet B35.3 ; Other hammer toe(s) (acquired), left foot M20.42 ; Type 2 diabetes mellitus with diabetic polyneuropathy E11.42 ; Tinea unguium B35.1 ; Pain in left toe(s) M79.675 ; Arthritis of joint of lesser toe, left M19.072 and Subluxation of metatarsophalangeal joint of toe, initial encounter S93.149A Assessments Encounter Date Diagnosis (ICD Code) Assessment Notes Treatment Notes Treatment Clinical Notes Section Notes 06/01/2024 Tinea pedis of both feet (ICD-10 - B35.3) 06/01/2024 Other hammer toe(s) (acquired), left foot (ICD-10 - M20.42) 06/01/2024 Type 2 diabetes mellitus with diabetic polyneuropathy (ICD-10 - E11.42) 06/01/2024 Tinea unguium (ICD-1 0 - B35.1) 06/01/2024 Pain in left toe(s) (ICD-10 - M79.675) 06/01/2024 Arthritis of joint o f lesser toe, left (ICD-10 - M19.072) 06/01/2024 Subluxation of metatarsophalangeal joint of toe, initial encounter (ICD-10 - S93.149A) Plan Of Treatment Pending Test Test Name Order Date [id number]-[id number] NAIL, 6 OR MORE 06/01/2024 63980-SWTF SKIN LESIONS, 2 TO 4 06/01/19 25 Next Appt Details Follow Up: prn, Reason: Provider Name:Whitney A Marcello , 09/28/2024 11:30:00 AM, [address] [place] [address], [id number], Procedure Notes * Category Sub-Category Detail Notes Debride Nail 6-10 Nail debridement Due to the cl inical pathology outlined in the exam findings, performance of this nail treatment is medically necessary as its management by an unskilled/untrained nonprofessional would put this patients foot and overall health at risk. Therefore, debridement to affected nail(s), as described in exam ( T1, T2, T3, T4, T6, T7, T8, T9, ), was performed exclusively by the physician of record to reduce/remove overall nail length, girth, thickness, subungual debris, and necrotic tissue, by manual and/or electrical means through the use of a nail nipper and/or dremel-type perlite grinder, to a more viable healthy nail plate or bed tissue 6-10 nails in total. Silver nitrate was used for any petechial bleeding as necessary. Definitive antifungal treatment options, both pharmaceutical and surgical, have been reviewed and discussed with the patient. The patient solely prefers the use of intermittent/as needed professional debridement services for their nail condition and understands the need for additional periodic treatments to maintain effectiveness in symptomatic relief - 16191 Keratoma Treatment Parring or Cutting o f Benign Hyperkeratotic Lesion(s) (-56) 2-4 Lesions - Due to the at risk nature of the patients medical condition as documented in the exam findings, performance of this keratoderma treatment is medically necessary as its management by an unskilled/untrained nonprofessional would put this patients foot and overall health at risk. Therefore, the benign hyperkeratotic lesions, ( 2 ) in total, locations as stated and described in the exam ( TA, T5, IPJ, Medial plantar , ), were pared, and/or cut utilizing a sterile 15 blade, tissue nippers, and/or power dremel instrumentation by the physician of record - 81140 Progress Notes * Ian POWER CDOB: 0 (73 yo M)Acc No.[id number]:06/01/2024 Progress Note Patient:?Ian POWER Provider:Sailaja Armendariz DPM :1950???Age:73 Y???Sex:Male Stu e:06/01/2024 Address:[address] [place] [id number] Pcp:Nakia Matthew Subjective: * Chief Complaints: * ???At Risk FootcareSkin Prob lemPainful Toe(s) * HPI: ???At Risk footcare:?Pt States Last PCP Visit:?Date?01/08/2024 ???Skin problems:?Nature:?scaling , redness.?Location:?B/L .?Duration:?, several months.?Course:?, improved, at 85 %.?Treatments:?Medication (Ciclopirox Olamine 0.77 Cream), admits intermittent adherence to recommended application.?Toe pain:?Nature:?tenderness.?Location:?Left foot.?Duration:?, several weeks.?Course:?worse.?Aggravated by:?any pressure, shoes.?Treatments:?rest/alter normal daily activity, change in shoes.? * ROS:?General/Constitutional:?Nausea?denies.?Vomiting?denies.?Hunger Thirst?denies.?Loss appetite?denies.?Chills?denies.?Fatigue?denies.?Fever?denies.?Night Sweats?denies.?Unexplained weight loss?denies.?Ophthalmologic:?Blurred vision?denies.?Red eye?denies.?HEENTM:?Dentures?denies.?Dizziness?denies.?Glasses/contacts?admits.?Retinopathy?den ies.?Blurred/double vision?denies.?TMJ?denies.?Discharge/drainage?denies.?Implants?denies.?Hard of hearing denies.?Difficulty chewing/swallowing/speaking?denies.?Nose bleeds?denies.?Sore mouth?denies.?Swollen glands?denies.?Respiratory:?On O xygen?denies.?Pneumonia/pleurisy?denies.?Bronchitis?denies.?Emphysema?denies.?Co ughing?denies.?Cough blood?denies.?Shortness of breath?denies.?Wheezing?denies.?Cardiovascular:?Pacemaker?denies.?MVP?denies.?WPW?denies.?CHF?denies.?Heart attack?denies.?Septal defect?denies.?Rapid beat?denies.?Chest pain ?denies.?Atrial Fib.?denies.?Murmur/Palpitations?denies.?Gastrointestinal:?Hemorrhoids?denies.?Stomach/Abdominal pain?denies.?Dark blood stool?denies.?Irritable bowel ?denies.?Constipation?denies.?Diarrhea?denies.?Vomiting?denies.?Hematology:?Swelling?admits.?Bruising?denies.?Bleeding problem?denies.?Genitourinary:?Blood urine?denies.?Frequent/Painfu/urination/bladder control?denies.?Kidney stones?denies.?Infection (UTI)?denies.?Nephropathy?denies.?Musculoskeletal:?Hammertoes?, admits.?Bunions?denies.?Scoliosis/kyphosis?denies.?Muscle cramps / walking?denies.?Generalized aches and pains?denies.?Weakness?denies.?Integ.:?Morris?denies.?Scars?denies.?Corns/calluses?denies.?Ingrown nails?denies.?Painful nails?, denies.?Rashes?denies.?Neurologic:?Difficulty sleeping?denies.?Bipolar?denies.?Brain disorder?denies.?Balance t rouble?denies.?Confusion?denies.?Fainting/blackouts?denies.?Headache?denies.?Johan mors?denies.? * Medical History:? * Surgical History:?hernia latesha d bypass 03/2023 * Hospitalization/Major Diagno stic Procedure:?[place] days, [place], atrial flutter 06/2014[facility]- quad [facility] blood loss from ulcer 03/2023 * Family History:?Mother: dece ased.?Father: , diagnosed with Unspecified essential hypertension.?Siblings: .? * Social History:?Tobacco Use:?Tobacco Use/Smoking?Are you a:?nonsmoker ?Additional Findings: Tobacco Non-User?Current non-smoker ?Tobacco use other than smoking?Are you an other tobacco user??No ???Miscellaneous:?Caffeine: yes, 2-3 cups per day. ?Children: yes, 4. ?Exercise: yes, gardening/yard work, walking dog, in summer swimming. ?Marital status: . 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 * Medications:?TakingPantopraz ole Sodium 40 MG Tablet Delayed Release 1 tablet 1/2 to 1 hour before morning meal Orally Once a day amLODIPine Besylate 10 MG Tablet 1 tablet Orally Once a day at supper Atorvastatin Calcium 20 MG Tablet 1 tablet Orally Once a day Eliquis 5 MG Tablet Orally twice a day Fish Oil Levothyroxine Sodium 88 MCG Tablet Orally Once a day, one hour efore breakfast Losartan Potassium 25 MG Tablet as directed Orally Once a day metFORMIN HCl 500 MG Tablet Orally twice a day Metoprolol & Diet Manage Prod 100 mg twice a day , Notes to Pharmacist: 50 mgs 2x a dayOne Touch Delica Lancets Trulicity 0.75 MG/0.5ML Solution Pen-injector as directed Subcutaneous Ciclopirox Olamine 0.77 % Cream 1 application Externally Twice a day to skin of feet including between the toes Taking Pantoprazole Sodium 40 MG Tablet Delayed Release 1 tablet 1/2 to 1 hour before morning meal Orally Once a day Taking amLODIPine Besylate 10 MG Tablet 1 tablet Orally Once a day at supper Taking Atorvastatin Calcium 20 MG Tablet 1 tablet Orally Once a day Taking Eliquis 5 MG Tablet Orally twice a day Taking Fish Oil Taking Levothyroxine Sodium 88 MCG Tablet Orally Once a day, one hour efore breakfast Taking Losartan Potassium 25 MG Tablet as directed Orally Once a day Taking metFORMIN HCl 500 MG Tablet Orally twice a day Taking Metoprolol & Diet Manage Prod 100 mg twice a day , Notes to Pharmacist: 50 mgs 2x a dayTaking One Touch Delica Lancets Taking Trulicity 0.75 MG/0.5ML Solution Pen-injector as directed Subcutaneous Taking Ciclopirox Olamine 0.77 % Cream 1 application Externally Twice a day to skin of feet including between the toes Not-Taking/PRNIsosorbide Dinitrate 30 MG Tablet 1 tablet Orally Twice a day Apixaban 5 MG Tablet as directed Orally Ciclopirox Olamine 0.77 % Cream 1 application Externally Twice a day Vitamin D Ciclopirox Olamine 0.77 % Cream 1 application to affected area Externally Twice a day glipiZIDE 5 MG Tablet Orally twice a day Simvastatin Januvia 50 MG Tablet 2 tablets Orally Once a day Aspirin glipiZIDE SITagliptin Phosphate Ciclopirox Olamine 0.77 % Cream 1 application to affected area Externally Twice a day Diovan Lipitor Umecta 40 % Emulsion as directed Externally Medication List reviewed and reconciled with the patientNot-Taking/PRN Isosorbide Dinitrate 30 MG Tablet 1 tablet Orally Twice a day Not-Taking/PRN Apixaban 5 MG Tablet as directed Orally Not-Taking/PRN Ciclopirox Olamine 0.77 % Cream 1 application Externally Twice a day Not-Taking/PRN Vitamin D Not-Taking/PRN Ciclopirox Olamine 0.77 % Cream 1 application to affected area Externally Twice a day Not-Taking/PRN glipiZIDE 5 MG Tablet Orally twice a day Not-Taking/PRN Simvastatin Not-Taking/PRN Januvia 50 MG Tablet 2 tablets Orally Once a day Not-Taking/PRN Aspirin Not-Taking/PRN glipiZIDE Not-Taking/PRN SITagliptin Phosphate Not-Taking/PRN Ciclopirox Olamine 0.77 % Cream 1 application to affected area Externally Twice a day Not-Taking/PRN Diovan Not-Taking/PRN Lipitor Not-Taking/PRN Umecta 40 % Emulsion as directed Externally Medication List reviewed and reconciled with the patient * Allergies:?Flonase: ming wilson[Allergies Verified] Objective: * Vitals:?Ht: 4zh48np, Wt:194, BMI:27.05, Shoe size: 11.5, BP:125/74mm Hg, BS: 146, Ht-cm: 180.34 cm, Wt-k kg. * ???Past Orders: ???Lab:HEMOGLOBIN A1C (GLYCO HEMOGLOBIN) (Order Date - 04/22/2024) (Collection Date & Time - 04/22/2024 11:23 AM) ? Value Reference Range ?HEMOGLOBIN A1C % (HH) 6.3 * Examination: ???Ophthalmology Referral: ?DIABETES EYE EXAM?Procedure Performed:?Yes ?Date of Exam Performed?2023 ?Findings of Diabetic Eye Exam:?retinopathy?General Examination: ?GENERAL APPEARANCE:?Reveals a pleasant, alert, well nourished, well- developed, well hydrated individual, who demonstrates proper attention to hygiene/body habitus, and is in no acute distress, Pt serves as own historian for office visit today.?ORIENTED:?person, place, and time.?FOOT EXAM:?Lower Extremity Neurological Exam performed:?Yes ?Visual exam of foot performed:?Yes ?Date?06/01/2024 ?Sensory testing performed:?sensations diminished ?Sensory and motor testing performed:?sensations diminished ?Pedal pulse taking performed:?2+ ?Footwear Evaluation?Footwear Evaluation performed:?Yes?Neurological: ?SENSORY:?exam demonstrates. reduced vibration lower extremity reduced sharp/dull pin prick discrimination , , 5.07 monofilament test performed at plantar aspects of 5 varied sites per foot shows sensation, absent, at Forefoot at Midfoot, , B/L, , Pt relates, anesthesia occasional shooting sharp pain.?Vascular: ?DP PULSES (B):?2/4, B/L.?PT PULSES (B):?2/4, B/L.?CAPILLARY FILL TIME:?immediate, all digits, B/L.?TEMPERTURE GRADIENT (C):?normal, warm to cool, proximal to distal, B/L, B/L.?EDEMA (C):? 2/4, non-pitting, B/L.?Nails: ?NAILS are:?Elongated, overgrown, dystrophic, lytic, greater than 3mm thick, discolored and friable with crumbly malodorous subungual debris, with dull to no pain on palpation due to neuropathy, ?T1, T2, T3, T4, T6, T7, T8, T9.?Dermatologic: ?SKIN FINDINGS:?Skin exam reveals keratotic lesion(s) located at, TA, T5, IPJ, Medial plantar , Skin shows sign(s) of, erythema, scaling, in a moccasin fashion, no fissure(s) present, B/L, approximately 85? percent LESS.?Orthopedic: ?DIGITAL DEFORMITIES:?Digital contracture, PIPJ, 2-5 B/L, incompl-reducible with WB, or to push-up test, no over, nor underlapping, Reveals pain/swelling/redness/enlargement of PIPJ, T8.?FOOTWEAR:?Non-Diabetic with no OT , shoe gear properties exacerbate patients foot/toe deformity.? Assessment: * Assessment: 1.?Other hammer toe(s) (acqu ired), left foot - M20.42 (Primary)???Specify :Chronic problem, Worse (4)???2.?Tinea pedis of both feet - B35.3???Specify :Response to treatment - Improvement???3.?Type 2 diabetes mellitus with diabetic polyneuropathy - E11.42???4.?Tinea unguium - B35.1???5.?Pain in left toe(s) - M79.675???6.?Arthritis of joint of lesser toe, left - M19.072???7.?Subluxation of metatarsophalangeal joint of toe, initial encounter - S93.149A??? Plan: * Treatment: 2.?Tinea unguium?Procedure: 42685-[id number] NAIL, 6 OR MORE * Procedures:?Debride Nail 6-10:?Nail debridement?Due to the clinical pathology outlined in the exam findings, performance of this nail treatment is medically necessary as its management by an unskilled/untrained nonprofessional would put this patients foot and overall health at risk. Therefore, debridement to affected nail(s), as described in exam ( T1, T2, T3, T4, T6, T7, T8, T9, ), was performed exclusively by the physician of record to reduce/remove overall nail length, girth, thickness, subungual debris, and necrotic tissue, by manual and/or electrical means through the use of a nail nipper and/or dremel-type perlite grinder, to a more viable healthy nail plate or bed tissue 6-10 nails in total. Silver nitrate was used for any petechial bleeding as necessary. Definitive antifungal treatment options, both pharmaceutical and surgical, have been reviewed and discussed with the patient. The patient solely prefers the use of intermittent/as needed professional debridement services for their nail condition and understands the need for additional periodic treatments to maintain effectiveness in symptomatic relief - 14514.?Keratoma Treatment:?Parring or Cutting of Benign Hyperkeratotic Lesion(s)?(-56) 2-4 Lesions - Due to the at risk nature of the patients medical condition as documented in the exam findings, performance of this keratoderma treatment is medically necessary as its management by an unskilled/untrained nonprofessional would put this patients foot and overall health at risk. Therefore, the benign hyperkeratotic lesions, ( 2 ) in total, locations as stated and described in the exam ( TA, T5, IPJ, Medial plantar , ), were pared, and/or cut utilizing a sterile 15 blade, tissue nippers, and/or power dremel instrumentation by the physician of record - 76760.? * Procedure Codes:?46452 DEBRI DE NAIL, 6 OR MORE, Modifiers: XS 46909 TRIM SKIN LESIONS, 2 TO 4, Modifiers: XS * Preventive Medicine:? ??Counseling:?Discussion:?-14: Office or other outpatient visit for the evaluation and management of an established patient, which required a medically appropriate history and/or examination and MODERATE level of DECISION MAKING for: 1 OR MORE CHRONIC PROBLEM(S) THATS WORSENING, 2 STABLE CHRONIC PROBLEMS, A NEWLY DIAGNOSED PROBLEM WITH UNCERTAIN PROGNOSIS, AN ACUTE COMPLICATED INJURY WITH MULTIPLE TREATMENT OPTIONS, OR AN ACUTE PROBLEM WITH ACCOMPANYING SYSTEMIC SYMPTOMS, THAT POSE(S) A MODERATE RISK OF MORBIDITY. THIS CONDITION MAY ALSO INCLUDE RX DRUG MANAGEMENT, OR A DECISON FOR MINOR SURGERY. The visit on the day of the encounter encompassed interpreting the data and educating the patient as to the nature of their condition, treatment options available according to their individual PMH, meds, allergies, and overall health/living conditions, as well as any potential risks or complications that may occur from a failure to adhere to, and participate in, the recommended course of therapy. The discussion included a complete verbal, and/or written explanation of the examination results, any x-rays taken, the proposed diagnosis, and outline of the treatment plan. A schedule for future care needs was also explained. The patient verbalized an understanding of the instructions at this time and agreed to be an active participant in their treatment. If the patient should think of any questions or concerns after the visit, I have encouraged the patient to call the office.?Digital Surgery:?We elected to try conservative treatment at the present time, due to the patients age,and medical history..?Digital Treatment:?HT- I explained to the patient the possible etiologies of Hammertoes, including genetics/foot type/shoegear/activity level/exercise routine and the risks/benefits of all the different treatment options for their pain including: No treatment at all, Rest, Ice, New/supportive/wider/deeper Shoe gear, Digital Padding/Strapping/Taping/Bracing/Gel protective sleeves, Foot/Ankle AFO Bracing, Stretching exercises, Deep Tissue Massage, Arch support/shoe inserts with splay metatarsal padding, and Custom orthoses. I insisted that any digital devices be removed daily and not worn overnight for safety. The patient is to carefully examine the toes daily for any skin irritation while using any splinting or padding device. The advantages and disadvantages of each option were discussed and the patients questions re: shoe gear, padding, custom vs prefabricated inserts, activity level, and consistency in home treatment regimens for optimal success were answered to their verbally confirmed satisfaction, Recomm, rest, ice, proper shoegear, padding, orthotics, anti-inflammatories or tylenol as tolerated, topical analgesics, cortisone injections.?Shoe Gear Counseling:?The patient and I reviewed the types of shoes they should be wearing. My recommendation included obtaining a well-fitted shoe with a good supportive, non-foldable nor twistable sole, plenty of toe/room for the forefoot, and proper arch support. Based on todays examination, I recommended the patient look for new shoes, by having their feet professionally measured. We discussed that generally the best time of the day for a shoe fitting is the afternoon. Different shoes types and brands to best match the patients occupation and vocation were discussed. Specific brand selection will be up to the patient, their individual foot condition/deformities, and fit. The patient and I reviewed the standard new shoe break in period by wearing them for a few hours a day while checking for redness or sores as wear time is increased. The patient verbally confirmed to understanding the information discussed, Patient DEFERS recommended Extra Depth Orthopedic pressure-accommodative shoes against medical advice.?Tinea Pedis:?Given recent successful results to treatment, The patient is to cont the rx cream as directed.? * Follow Up:?prn * Images: * Sign off status: Completed true * Provider:?Whitney Armendariz DPM Date:?2024 Generated for Jose coles/Avelino/Chang on:?08/06/2024 05:29 PM EDT History and Physical Notes * HPI (History of Present Illness) Category Sub-Category Detail Notes Category Not es Toe pain Nature: tenderness Location: Left foot Duration: , several weeks Course: worse Aggravated by: any pressure, shoes Treatments: rest/alter normal da adrian activity, change in shoes Skin problems Nature: scaling , redness Location: B/L Duration: , several months Course: , improved, at 85 % Treatments: Medication (Ciclopir ox Olamine 0.77 Cream), admits intermittent adherence to recommended application At Risk footcare Pt States Last PCP Visit: Date: 4 Examination Category Sub-Category Detail Notes Category Not es Neurological SENSORY: exam demonstrate s. reduced vibration lower extremity reduced sharp/dull pin prick discrimination , , 5.07 monofilament test performed at plantar aspects of 5 varied sites per foot shows sensation, absent, at Forefoot at Midfoot, , B/L, , Pt relates, anesthesia occasional shooting sharp pain Dermatologic SKIN FINDINGS: Skin exam reveal s keratotic lesion(s) located at, TA, T5, IPJ, Medial plantar , Skin shows sign(s) of, erythema, scaling, in a moccasin fashion, no fissure(s) present, B/L, approximately 85 percent LESS Orthopedic FOOTWEAR EVALUATION: Non-Diabeti c with no OT , shoe gear properties exacerbate patients foot/toe deformity DIGITAL DEFORMITIES: Digital contracture , PIPJ, 2-5 B/L, incompl-reducible with WB, or to push-up test, no over, nor underlapping, Reveals pain/swelling/redness/enlargement of PIPJ, T8 General Examination GENERAL APPEARANCE: Reveals a pleasant, alert, well nourished, well-developed, well hydrated individual, who demonstrates proper attention to hygiene/body habitus, and is in no acute distress, Pt serves as own historian for office visit today FOOT EXAM: Lower Extremity Neurological Exa m performed:: Yes Visual exam of foot performed:: Yes Date: 06/01/2024 Sensory testing performed:: sensations d iminished Sensory and motor testing performed:: se nsations diminished Pedal pulse taking performed:: 2+ ORIENTED: person, place, and t elizabeth Footwear Evaluation Footwear Evaluation performe d:: Yes Ophthalmology Referral DIABETES EYE EXAM Procedure Perform ed:: Yes ?Date of Exam Performed: 2023 Findings of Diabetic Eye Exam:: retinopa thy Vascular DP PULSES (B): 2/4, B/L PT PULSES (B): 2/4, B/L CAPILLARY FILL TIME: immediate, all digi ts, B/L TEMPERTURE GRADIENT (C): normal, warm to cool, proximal to distal, B/L, B/L EDEMA (C): 2/4, non-pitting, B/ L Nails NAILS are: Elongated, overg rown, dystrophic, lytic, greater than 3mm thick, discolored and friable with crumbly malodorous subungual debris, with dull to no pain on palpation due to neuropathy, T1, T2, T3, T4, T6, T7, T8, T9
--- OUTSIDE RECORDS SUMMARY | 2024-08-06 17:30 | XMS_ITS | Encounter Summary ---
Author Organization [facility] Address [address] [place] [address] Care Team Providers Care Ramp And Cargo Supervisor Name Role Phone Mariela Schmidt MD Primary Care Provider Cyril Ramos MD Primary Care Provider Nakia Kahn MD Primary Care Prov ider Ronnie Sahu MD Unavailable [phone] Black, Whitney Unavailable Unavailable Sonidat, Panda Unavailable Unavailable Rich Mera MD Unavailable Caitie Talbot Unavailable Unavailable Angel Nixon MD Unavailable Unavailable Encounter Details Date Type Department Care Team Description 08/31/2020 Refill Adult Medicine [address] [id number] Tanika Wild PA-C [address] [place] [address] [phone] Social History Tobacco Use Types Packs/Day Years [...] Telephone Encounter - Angeles Ohara M.A. - 08/31/2020 11:06 AM EDT Ov 06/16 telehealth pcp Lab Results Component Value Date HGBA1C 6.9 08/02/2020 MALBUR 39.5 05/10/2020 MALBCR 103.9 05/10/2020 CHOL 104 05/10/2020 LDL 26 05/10/2020 HDL 23 05/10/2020 TRIG 276 05/10/2020 GLU 122 05/10/2020 CREAT 1.46 05/10/2020 documented in this encounter Plan of Treatment Not on file documented as of this encounter Visit Diagnoses Not on filedocumented in this encounter Care Teams Ramp And Cargo Supervisor Relationship Specialty Start Date End Date Mariela Schmidt MD PCP - General Internal Medicine 08/14/11 01/24/21 Cyril Loja MD PCP - General Internal Medicine 01/25/21 12/17/21 Nakia Tom MD [address] [place] [address] 8[address]42 PCP - General Internal Medicine 12/18/21 Ronnie Sahu MD [address] [place] [address] 94948 Specialist Nephrology 05/07/22 Whitney Armendariz [address] [place] [address] 24734 Specialist Podiatry 05/07/22 Panda Munguia [address] [place] [address] 94658 Specialist Thoracic Surgery 12/18/22 Rich Mera MD [address] [place] [address] 54199 Specialist Cardiology 12/27/22 Caitie Gross [address] [place] [address] 58824 Specialist Ophthalmology 12/27/22 Angel Nixon MD [address] [place] [address] 61173 Specialist Pulmonology 12/27/22 documented as of this encounter
--- OUTSIDE RECORDS SUMMARY | 2024-08-06 17:30 | XMS_ITS | Encounter Summary ---
Author Organization [facility] Address [address] [place] [address] Care Team Providers Care Mica Inspector Name Role Phone Mariela Schmidt MD Primary Care Provider Cyril Ramos MD Primary Care Provider Nakia Kahn MD Primary Care Prov ider Ronnie Sahu MD Unavailable [phone] Black, Whitney Unavailable Unavailable Nilda Panda Unavailable Unavailable Rich Mera MD Unavailable Caitie Talbot Unavailable Unavailable Angel Nixon MD Unavailable Unavailable Reason for Visit * Reason Onset Date Comments Mychart Rx Refill 05/27/2019 Encounter Details Date Type Department Care Team Description 05/27/2019 Refill Adult Medicine [address] [address] Chely Jaffe PA-C [address] [place] [address] Mychart Rx Refill Social History Tobacco Use [...] encounter Miscellaneous Notes * Telephone Encounter - Arnaldo Jackson M.A. - 05/27/2019 4:49 PM EST Faxed to pharmacy * Telephone Encounter - Liudmila Sauceda M.A. - 05/27/2019 3:14 PM EST Lab Results Component Value Date CHOL 94 08/15/2018 LDL 21 08/15/2018 HDL 24 08/15/2018 TRIG 245 08/15/2018 SGOT 14 08/15/2018 SGPT 27 08/15/2018 Pending ov with pcp 06/2019 documented in this encounter Plan of Treatment Not on file documented as of this encounter Visit Diagnoses Not on filedocumented in this encounter Care Teams Mica Inspector Relationship Specialty Start Date End Date Mariela Schmidt MD PCP - General Internal Medicine 08/14/11 01/24/21 Cyril Loja MD PCP - General Internal Medicine 01/25/21 12/17/21 Nakia Tom MD [address] [place] [address] 90644 PCP - General Internal Medicine 12/18/21 Ronnie Sahu MD [address] [place] [address] 97430 Specialist Nephrology 05/07/22 Whitney Armendariz [address] [place] [address] 37339 Specialist Podiatry 05/07/22 Panda Munguia [address] [place] [address] 53190 Specialist Thoracic Surgery 12/18/22 Rich Mera MD [address] [place] [address] 54691 Specialist Cardiology 12/27/22 Caitie Gross [address] [place] [address] 11314 Specialist Ophthalmology 12/27/22 Angel Nixon MD [address] [place] [address] 37532 Specialist Pulmonology 12/27/22 documented as of this encounter
--- OUTSIDE RECORDS SUMMARY | 2024-08-06 17:30 | XMS_ITS | Encounter Summary ---
Author Organization [facility] Address [address] [place] [address] Care Team Providers Care International Recruiter Name Role Phone Mariela Schmidt MD Primary Care Provider Cyril Ramos MD Primary Care Provider Nakia Kahn MD Primary Care Prov ider Ronnie Sahu MD Unavailable [phone] Black, Whitney Unavailable Unavailable Sonidamauricio Panda Unavailable Unavailable Rich Mera MD Unavailable Caitie Talbot Unavailable Unavailable Angel Nixon MD Unavailable Unavailable Encounter Details Date Type Department Care Team Description 02/22/2020 Refill Adult Medicine [address] [phone] Cyril Loja MD Social History Tobacco Use Types Packs/Day [...] have Coronavirus / COVID-19? No / Unsure 01/24/2020 8:46 AM EDT documented as of this encounter Miscellaneous Notes * Telephone Encounter - Carolina Becerril M.A. - 02/22/2020 5:56 PM EST Lab Results Component Value Date HGBA1C 6.8 01/24/2020 MALBUR 41.8 01/24/2020 MALBCR 40.5 01/24/2020 CHOL 97 01/24/2020 LDL 21 01/24/2020 HDL 23 01/24/2020 TRIG 268 01/24/2020 GLU 156 01/24/2020 CREAT 1.38 01/24/2020 INES 01/14/20 Mychart sent to schedule 3 Month f/u documented in this encounter Plan of Treatment Not on file documented as of this encounter Visit Diagnoses Not on filedocumented in this encounter Care Teams International Recruiter Relationship Specialty Start Date End Date Mariela Schmidt MD PCP - General Internal Medicine 08/14/11 01/24/21 Cyril Loja MD PCP - General Internal Medicine 01/25/21 12/17/21 Nakia Tom MD [address] [place] [address] PCP - General Internal Medicine 12/18/21 Ronnie Sahu MD [address] [place], [place] [phone] Specialist Nephrology 05/07/22 Whitney Armendariz [address] [place] [address] 58291 Specialist Podiatry 05/07/22 Panda Munguia [address] [place] [address] 37824 Specialist Thoracic Surgery 12/18/22 Rich Mera MD [address] [place], [place] [phone] Specialist Cardiology 12/27/22 Caitie Gross [address] [place], [place] [phone] Specialist Ophthalmology 12/27/22 Angel Nixon MD [address] [place] [address] 68050 Specialist Pulmonology 12/27/22 documented as of this encounter
--- OUTSIDE RECORDS SUMMARY | 2024-08-06 17:30 | XMS_ITS | Encounter Summary ---
Author Organization [facility] Address [address] [place] [address] Care Team Providers Care Construction Inspector Name Role Phone Mariela Schmidt MD Primary Care Provider Cyril Ramos MD Primary Care Provider Nakia Kahn MD Primary Care Prov ider Ronnie Sahu MD Unavailable [phone] Black, Whitney Unavailable Unavailable Saadat, Panda Unavailable Unavailable Rich Mera MD Unavailable Caitie Talbot Unavailable Unavailable Angel Nixon MD Unavailable Unavailable Encounter Details Date Type Department Care Team Description 08/17/2019 Chief Catalyst Operator Report Medical Records [address] [place] [address] Ronnie Sahu MD [address] [place] [address] [phone] Social History Tobacco Use Types Packs/Day Years [...] on filedocumented in this encounter Care Teams Construction Inspector Relationship Specialty Start Date End Date Mariela Schmidt MD PCP - General Internal Medicine 08/14/11 01/24/21 Cyril Loja MD PCP - General Internal Medicine 01/25/21 12/17/21 Nakia Tom MD [address] [place] [address] 25515 PCP - General Internal Medicine 12/18/21 Ronnie Sahu MD [address] [place] [address] 49825 Specialist Nephrology 05/07/22 Whitney Armendariz [address] [place] [address] 36976 Specialist Podiatry 05/07/22 Panda Munguia [address] [place], [place] [phone] Specialist Thoracic Surgery 12/18/22 Rich Mera MD [address] [place] [address] 39030 Specialist Cardiology 12/27/22 Caitie Gross [address] [place], [place] [phone] Specialist Ophthalmology 12/27/22 Angel Nixon MD [address] [place] [address] 66929 Specialist Pulmonology 12/27/22 documented as of this encounter
--- OUTSIDE RECORDS SUMMARY | 2024-08-06 17:30 | XMS_ITS | Encounter Summary ---
Author Organization [facility] Address [address] [place] [address] Care Team Providers Care Traffic Analysis Technician Name Role Phone Nakia Tom MD Primary Care Prov ider Ronnie Sahu MD Unavailable [phone] Black, Whitney Unavailable Unavailable Panda Munguia Unavailable Unavailable Rich Mera MD Unavailable Caitie Talbot Unavailable Unavailable Angel Nixon MD Unavailable Unavailable Reason for Visit * Reason Onset Date Comments LAB WORK 11/07/2022 Encounter Details Date Type Department Care Team Description 11/07/2022 Telephone Adult Medicine [address] [address] Nakia Tom MD [address] [place] [address] [phone] LAB WORK Social History Tobacco Use Types Packs/Day Years [...] encounter Miscellaneous Notes * Telephone Encounter - Gwen Cotton R.N. - 11/07/2022 3:32 PM EDT Spoke with Racheal at [facility] cardiology. They are working him up for cardiac surgery Asking if renal history they have creat of 1.8 today. Advised he is CKD 3 and given Creat and GFR over the past year * Telephone Encounter - Peyton Garcia - 11/07/2022 3:20 PM EDT Symptoms patient is presenting: Racheal from [facility] cardiac calling wanting to discuss labs on this patient For ALL patients calling to schedule any appointment (routine, sick visit, follow up, consult, etc.) in the outpatient setting please ask the following questions: ?? Do you have fever of higher than 101, sore throat with difficulty swallowing or severe shortnessof breath? NO If YES to any of these above symptoms, send a message to triage and do not book. Red dot. If no, an audio or video visit should be booked. ?? Have you had close contact with someone with Coronavirus in the last 14 days? NO ?? Have you traveled abroad? NO ?? Have you traveled recently to another state outside of [place], [place], [place], [place], [place], [place], [place]? NO o If yes, did you quarantine for 14 days or have a negative covid test? NO If yes to any of the above, patient is not to be scheduled in office until after 14 day quarantine or negative covid test. If pain or injury related was it due to an accident at work or from a motor vehicle accident? NO If yes, gather 3rd green party insurance information Date of accident/Injury: How long has patient had these symptoms?: today PCP: Nakia Rankin Payor: [facility]/MEDICARE PPO / Plan: [facility] MDCR-ADV PPO $0 [place] [id number] / Product Type: MEDICARE [id number] documented in this encounter Plan of Treatment Not on file documented as of this encounter Visit Diagnoses Not on filedocumented in this encounter Care Teams Traffic Analysis Technician Relationship Specialty Start Date End Date Nakia Tom MD [address] [place] [address] PCP - General Internal Medicine 12/18/21 Ronnie Sahu MD [address] [place] [address] 55214 Specialist Nephrology 05/07/22 Whitney Armendariz [address] [place] [address] 91773 Specialist Podiatry 05/07/22 Panda Munguia [address] [place], [place] [phone] Specialist Thoracic Surgery 12/18/22 Rich Mera MD [address] [place] [address] 46274 Specialist Cardiology 12/27/22 Caitie Gross [address] [place] [address] 90718 Specialist Ophthalmology 12/27/22 Angel Nixon MD [address] [place] [address] 30004 Specialist Pulmonology 12/27/22 documented as of this encounter
--- OUTSIDE RECORDS SUMMARY | 2024-08-06 17:30 | XMS_ITS | Encounter Summary ---
Author Organization [facility] Address [address] [place] [address] Care Team Providers Care Equipment Maintenance Engineer Name Role Phone Mariela Schmidt MD Primary Care Provider Cyril Ramos MD Primary Care Provider Nakia Kahn MD Primary Care Prov ider Ronnie Sahu MD Unavailable [phone] Black, Whitney Unavailable Unavailable Sonidamauricio, Panda Unavailable Unavailable Rich Mera MD Unavailable Caitie Talbot Unavailable Unavailable Angel Nixon MD Unavailable Unavailable Encounter Details Date Type Department Care Team Description 09/24/2020 Pt. Non Urgent Medical Question Adult Medicine [address] [address] Chely Jaffe PA-C [address] [place] [address] [phone] Social History Tobacco Use Types Packs/Day Years [...] encounter Miscellaneous Notes * Telephone Encounter - Melissa Chung M.A. - 09/26/2020 7:50 AM EDTFrom: Ian Chapman To: Keven Jaffe Sent: 09/24/2020 12:18 PM EDT Subject: upcoming appt./trulicity Good afternoon, as per your requirement that I needed to make an appointment with you to receive a script, I've made the appointment. October 03 at 10:30 AM. It only took 3 attempts to call [phone], and over an hour listening to how important my call was. I never had that difficulty prior to [facility] taking over. And I'm still con fused as to why I continually have trouble getting my trulicity refilled. I had two appts with my PCP, the first in person late April and the second a phone follow up in late May. I should be receiving far more than 30 day fills. Please be prepared to answer as to why this d ifficulty persists. Thank you, John documented in this encounter Plan of Treatment Not on file documented as of this encounter Visit Diagnoses Not on filedocumented in this encounter Care Teams Equipment Maintenance Engineer Relationship Specialty Start Date End Date Mariela Schmidt MD PCP - General Internal Medicine 08/14/11 01/24/21 Cyril Loja MD PCP - General Internal Medicine 01/25/21 12/17/21 Nakia Tom MD [address] [place] [address] PCP - General Internal Medicine 12/18/21 Ronnie Sahu MD [address] [place] [address] Specialist Nephrology 05/07/22 Whitney Armendariz [address] [place] [address] 76770 Specialist Podiatry 05/07/22 Panda Munguia [address] [place] [address] 67016 Specialist Thoracic Surgery 12/18/22 Rich Mera MD [address] [place] [address] Specialist Cardiology 12/27/22 Caitie Gross [address] [place] [address] Specialist Ophthalmology 12/27/22 Angel Nixon MD [address] [place] [address] Specialist Pulmonology 12/27/22 documented as of this encounter
--- OUTSIDE RECORDS SUMMARY | 2024-08-06 17:30 | XMS_ITS | Encounter Summary ---
Author Organization [facility] Address [address] [place] [address] Care Team Providers Care Thermostat Repairer Name Role Phone Mariela Schmidt MD Primary Care Provider Cyril Ramos MD Primary Care Provider Nakia Kahn MD Primary Care Prov ider Ronnie Sahu MD Unavailable [phone] Black, Whitney Unavailable Unavailable Panda Munguia Unavailable Unavailable Rich Mera MD Unavailable Caitie Talbot Unavailable Unavailable Angel Nixon MD Unavailable Unavailable Encounter Details Date Type Department Care Team Description 05/11/2015 [place]. [place] [place] [facility] [address] [place], [place] [phone] Md See Social History Tobacco Use Types Packs/Day Years [...] on filedocumented in this encounter Care Teams Thermostat Repairer Relationship Specialty Start Date End Date Mariela Schmidt MD PCP - General Internal Medicine 08/14/11 01/24/21 Cyril Loja MD PCP - General Internal Medicine 01/25/21 12/17/21 Nakia Tom MD [address] [place] [address] PCP - General Internal Medicine 12/18/21 Ronnie Sahu MD [address] [place] [address] 94213 Specialist Nephrology 05/07/22 Whitney Armendariz [address] [place] [address] 86557 Specialist Podiatry 05/07/22 Panda Munguia [address] [place] [address] 09330 Specialist Thoracic Surgery 12/18/22 Rich Mera MD [address] [place] [address] 62468 Specialist Cardiology 12/27/22 Caitie Gross [address] [place] [address] 27763 Specialist Ophthalmology 12/27/22 Angel Nixon MD [address] [place] [address] 99329 Specialist Pulmonology 12/27/22 documented as of this encounter
--- OUTSIDE RECORDS SUMMARY | 2024-08-06 17:30 | XMS_ITS | Encounter Summary ---
[facility] Address [address] [place] [address] Care Team Providers Care Oil Well Services Dispatcher Name Role Phone Jian Lang MD Primary Care Provider [phone] Carlitos Weeks MD Primary Care Provider Mariela Martel MD Primary Care Provider Cyril Ramos MD Primary Care Provider Nakia Kahn MD Primary Care Prov ider Ronnie Sahu MD Unavailable [phone] Black, Whitney Unavailable Unavailable Panda Munguia Unavailable Unavailable Rich Mera MD Unavailable Caitie Talbot Unavailable Unavailable Angel Nixon MD Unavailable Unavailable Encounter Details Date Type Department Care Team Description 10/05/2010 Refill Adult Medicine - [address] [address] Arnaldo Nuno, PA [address] [place] [address] Social History Tobacco Use Types Packs/Day Years Used Date Smoking Tobacco: Former Comments:QUIT [address] arted smoking @ age 13 Alcohol Use Standard Drinks/Week Comments No 0 (1 standard drink = 0.6 oz pur e alcohol) Sex Assigned at Date Recorded Not on file Job Start Date Occupation Industry Not on file Not on file Not on file documented as of this encounter Miscellaneous Notes * Telephone Encounter - Deandra Antonio L.P.N. - 10/05/2010 11:07 AM EDTFrom: IAN CHAPMAN To: Arnaldo Nuno Sent: SatOct 05, 2010 10:43 AM Subject: Medication Renewal Request Original authorizing provider: PHONG Villedahen Adela would like a refill of the following medications: simvastatin (ZOCOR) 10 MG tablet [PHONG Villeda] glyBURIDE (DIABETA) 2.5 MG tablet [PHONG Villeda] metformin (GLUCOPHAGE) 500 MG tablet [PHONG Villeda] valsartan (DIOVAN) 80 MG tablet [PHONG Villeda] Preferred pharmacy: Other Comment: [facility] (\ mail order) Medication renewals requested in this message routed to other providers: documented in this encounter Plan of Treatment Not on file documented as of this encounter Visit Diagnoses Not on filedocumented in this encounter Care Teams Oil Well Services Dispatcher Relationship Specialty Start Date End Date Jian Lang MD [address] [place] [address] PCP - General 09/20/10 04/19/11 Carlitos Weeks MD [address] [place] [address] 69333 PCP - General Internal Medicine 04/20/11 08/13/11 Mariela Schmidt MD [address] [place] [address] PCP - General Internal Medicine 08/14/11 01/24/21 Cyril Loja MD [address] [place] [address] 6[address]42 PCP - General Internal Medicine 01/25/21 12/17/21 Nakia Tom MD [address] [place] [address]65 PCP - General Internal Medicine 12/18/21 Ronnie Sahu MD [address] [place] [address] Specialist Nephrology 05/07/22 Whitney Armendariz [address] [place] [address] Specialist Podiatry 05/07/22 Panda Munguia [address] [place] [address] 92699 Specialist Thoracic Surgery 12/18/22 Rich Mera MD [address] [place] [address] 28143 Specialist Cardiology 12/27/22 Caitie Gross [address] [place] [address] Specialist Ophthalmology 12/27/22 Angel Nixon MD [address] [place] [address] 85038 Specialist Pulmonology 12/27/22 documented as of this encounter
--- OUTSIDE RECORDS SUMMARY | 2024-08-06 17:30 | XMS_ITS | Encounter Summary ---
Author Organization [facility] Address [address] [place] [address] Care Team Providers Care Craft Demonstrator Name Role Phone Cyril Loja MD Primary Care Provider Nakia Kahn MD Primary Care Prov ider Ronnie Sahu MD Unavailable [phone] Black, Whitney Unavailable Unavailable Panda Munguia Unavailable Unavailable Rich Mera MD Unavailable Caitie Talbot Unavailable Unavailable Angel Nixon MD Unavailable Unavailable Encounter Details Date Type Department Care Team Description 10/30/2021 Sueding And Buffing Machine Operator Report Medical Records [address] [place] [address] Black, Whitney Social History Tobacco Use Types [...] on filedocumented in this encounter Care Teams Craft Demonstrator Relationship Specialty Start Date End Date Cyril Loja MD PCP - General Internal Medicine 01/25/21 12/17/21 Nakia Tom MD [address] [place] [address] 39740 PCP - General Internal Medicine 12/18/21 Ronnie Sahu MD [address] [place] [address] 24740 Specialist Nephrology 05/07/22 Whitney Armendariz [address] [place] [address] 83834 Specialist Podiatry 05/07/22 Panda Munguia [address] [place] [address] 15527 Specialist Thoracic Surgery 12/18/22 Rich Mera MD [address] [place] [address] 06957 Specialist Cardiology 12/27/22 Caitie Gross [address] [place] [address] 81401 Specialist Ophthalmology 12/27/22 Angel Nixon MD [address] [place] [address] 09279 Specialist Pulmonology 12/27/22 documented as of this encounter
--- OUTSIDE RECORDS SUMMARY | 2024-08-06 17:30 | XMS_ITS | Encounter Summary ---
Author Organization [facility] Address [address] [place] [address] Care Team Providers Care Harvest Worker Field Crop Name Role Phone Mariela Schmidt MD Primary Care Provider Cyril Ramos MD Primary Care Provider Nakia Kahn MD Primary Care Prov ider Ronnie Sahu MD Unavailable [phone] Black, Whitney Unavailable Unavailable Sonidamauricio, Panda Unavailable Unavailable Rich Mera MD Unavailable Caitie Talbot Unavailable Unavailable Angel Nixon MD Unavailable Unavailable Encounter Details Date Type Department Care Team Description 12/21/2019 Pt. 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 - 12/21/2019 3:22 PM EDTFrom: Ian Adela To: Chely Jaffe PA-C Sent: 12/21/2019 3:20 PM EDT Subject: upcoming visit Good afternoon Chely, I've scheduled an appointment for a medicine review and general diabetes follow up for . It's been six months since I've had blood work done, so if you wish to put in a blood/urine request at [facility] please do so and let me know. I'll visit the week before. Also, I h ave no difficulty with video appts for something such as a general follow up. So if that is preferred for you that's great. I'll do a blood pressure test, and finger prick before the call. Thanks, let me know or I'll just show up on the . John documented in this encounter Plan of Treatment Not on file documented as of this encounter Visit Diagnoses Diagnosis Type 2 diabetes with decreased circulation (ED)- Primary Type II or unspecified type diabetes mellitus with peripheral circulatory disorders, not stated as uncontrolled documented in this encounter Care Teams Harvest Worker Field Crop Relationship Specialty Start Date End Date Mariela Schmidt MD PCP - General Internal Medicine 08/14/11 01/24/21 Cyril Loja MD PCP - General Internal Medicine 01/25/21 12/17/21 Nakia Tom MD [address] [place] [address] PCP - General Internal Medicine 12/18/21 Ronnie Sahu MD [address] [place] [address] Specialist Nephrology 05/07/22 Whitney Armendariz [address] [place] [address] Specialist Podiatry 05/07/22 Panda Munguia [address] [place] [address] Specialist Thoracic Surgery 12/18/22 Rich Mera MD [address] [place] [address] [place] [address] Specialist Cardiology 12/27/22 Caitie Gross [address] [place] [address] Specialist Ophthalmology 12/27/22 Angel Nixon MD [address] [place] [address] Specialist Pulmonology 12/27/22 documented as of this encounter
--- OUTSIDE RECORDS SUMMARY | 2024-08-06 17:30 | XMS_ITS | Encounter Summary ---
Author Organization [facility] Address [address] [place] [address] Care Team Providers Care Ambulette Driver Name Role Phone Mariela Schmidt MD Primary Care Provider Cyril Ramos MD Primary Care Provider Nakia Kahn MD Primary Care Prov ider Ronnie Sahu MD Unavailable [phone] Black, Whitney Unavailable Unavailable Nilda Panda Unavailable Unavailable Rich Mera MD Unavailable Caitie Talbot Unavailable Unavailable Angel Nixon MD Unavailable Unavailable Reason for Visit * Reason Onset Date Comments Faxed Order 08/02/2015 Encounter Details Date Type Department Care Team Description 08/02/2015 Telephone Adult Medicine [address] [id number] Mariela Schmidt MD Faxed Order Social History Tobacco Use Types Packs/Day Years [...] encounter Miscellaneous Notes * Telephone Encounter - Mary Olguin - 08/02/2015 4:59 PM EDT FAXED ORDERS IN [place] documented in this encounter Plan of Treatment Not on file documented as of this encounter Visit Diagnoses Not on filedocumented in this encounter Care Teams Ambulette Driver Relationship Specialty Start Date End Date Mariela Schmidt MD PCP - General Internal Medicine 08/14/11 01/24/21 Cyril Loja MD PCP - General Internal Medicine 01/25/21 12/17/21 Nando Rankin, Nakia Johnston MD [address] [place], [place] [phone] PCP - General Internal Medicine 12/18/21 Ronnie Sahu MD [address] [place] [address] Specialist Nephrology 05/07/22 Whitney Armendariz [address] [place] [address] Specialist Podiatry 05/07/22 Panda Munguia [address] [place] [address] Specialist Thoracic Surgery 12/18/22 Rich Mera MD [address] [place] [address] Specialist Cardiology 12/27/22 Caitie Gross [address] [place] [address] Specialist Ophthalmology 12/27/22 Angel Nixon MD [address] [place] [address] Specialist Pulmonology 12/27/22 documented as of this encounter
--- OUTSIDE RECORDS SUMMARY | 2024-08-06 17:30 | XMS_ITS | Encounter Summary ---
Author Organization [facility] Address [address] [place] [address] Care Team Providers Care Construction Management Instructor Name Role Phone Mariela Schmidt MD Primary Care Provider Cyril Ramos MD Primary Care Provider Nakia Kahn MD Primary Care Prov ider Ronnie Sahu MD Unavailable [phone] Black, Whitney Unavailable Unavailable Sonidamauricio, Panda Unavailable Unavailable Rich Mera MD Unavailable Caitie Talbot Unavailable Unavailable Angel Nixon MD Unavailable Unavailable Encounter Details Date Type Department Care Team Description 09/15/2020 Pt. Non Urgent Medic al Question Adult Medicine [address] [address] Mariela Schmidt MD Social History Tobacco Use [...] Telephone Encounter - Liudmila Sauceda M.A. - 09/15/2020 9:18 AM EDTFrom: Ian Chapman To: Regina Schmidt Sent: 09/15/2020 9:16 AM EDT Subject: Leaving? Good morning Doctor, Rec'd your letter you are leaving [place]. Sorry on my part as you've been excellent for me. Hopeful that on your part it is for positive and good reasons. Want to wish you the best of everything as you move forward in life. Will you remain in practice locally? Or are you off to warmer climates? Best to you, h usband, and kids. John Chapman documented in this encounter Plan of Treatment Not on file documented as of this encounter Visit Diagnoses Not on filedocumented in this encounter Care Teams Construction Management Instructor Relationship Specialty Start Date End Date Mariela Schmidt MD PCP - General Internal Medicine 08/14/11 01/24/21 Cyril Loja MD PCP - General Internal Medicine 01/25/21 12/17/21 Nakia Tom MD [address] [place] [address] PCP - General Internal Medicine 12/18/21 Ronnie Sahu MD [address] [place] [address] Specialist Nephrology 05/07/22 Whitney Armendariz [address] [place] [address] Specialist Podiatry 05/07/22 Panda Munguia [address] [place] [address] Specialist Thoracic Surgery 12/18/22 Rich Mera MD [address] [place] [address] Specialist Cardiology 12/27/22 Caitie Gross [address] [place] [address] Specialist Ophthalmology 12/27/22 Angel Nixon MD [address] [place] [address] Specialist Pulmonology 12/27/22 documented as of this encounter
--- OUTSIDE RECORDS SUMMARY | 2024-08-06 17:30 | XMS_ITS | Encounter Summary ---
Author Organization [facility] Address [address] [place] [address] Care Team Providers Care Sailing Instructor Name Role Phone Mariela Schmidt MD Primary Care Provider Cyril Ramos MD Primary Care Provider Nakia Kahn MD Primary Care Prov ider Ronnie Sahu MD Unavailable [phone] Black, Whitney Unavailable Unavailable Sonidamauricio, Panda Unavailable Unavailable Rich Mera MD Unavailable Caitie Talbot Unavailable Unavailable Angel Nixon MD Unavailable Unavailable Reason for Visit * Reason Onset Date Comments medication problems 09/28/2015 Encounter Details Date Type Department Care Team Description 09/28/2015 Pt. Non Urgent Medic al Question Adult Medicine [address] [address] Mariela Schmidt MD Social History Tobacco Use [...] Progress Notes * Kassidy Lynne L.P.N. - 09/29/2015 8:28 AM EDTFrom: Ian Wilsonp To: Mariela Schmidt MD Sent: 09/28/2015 9:31 PM EDT Subject: Januvia versus glypiside An update on my Januvia. My PPO has approved the Januvia prescription, but my co-payment for the prescriptions to last the rest of the year (two 90 day fills) would be over $600. It has to do with 'coverage gaps'. My Xaraltois already expensive. Since glypiside is a relatively inexpensive drug and it worked fine for me inthe past I will give that a try and see if my success with weight will counteract the weight plus effect of that drug. Please let me know if you feel there is any problem with this. ThanksJohn documented in this encounter Plan of Treatment Not on file documented as of this encounter Visit Diagnoses Not on filedocumented in this encounter Care Teams Sailing Instructor Relationship Specialty Start Date End Date Mariela Schmidt MD PCP - General Internal Medicine 08/14/11 01/24/21 Cyril Loja MD PCP - General Internal Medicine 01/25/21 12/17/21 Nakia Tom MD [address] [place] [address] PCP - General Internal Medicine 12/18/21 Ronnie Sahu MD [address] [place] [address] Specialist Nephrology 05/07/22 Whitney Armendariz [address] [place] [address] Specialist Podiatry 05/07/22 Panda Munguia [address] [place] [address] Specialist Thoracic Surgery 12/18/22 Rich Mera MD [address] [place] [address] Specialist Cardiology 12/27/22 Caitie Gross [address] [place] [address] Specialist Ophthalmology 12/27/22 Angel Nixon MD [address] [place] [address] Specialist Pulmonology 12/27/22 documented as of this encounter
--- OUTSIDE RECORDS SUMMARY | 2024-08-06 17:30 | XMS_ITS | Encounter Summary ---
Author Organization [facility] Address [address] [place] [address] Care Team Providers Care Pattern Scratcher Name Role Phone Mariela Schmidt MD Primary Care Provider Cyril Ramos MD Primary Care Provider Nakia Kahn MD Primary Care Prov ider Ronnie Sahu MD Unavailable [phone] Black, Whitney Unavailable Unavailable Sonidamauricio Panda Unavailable Unavailable Rich Mera MD Unavailable Caitie Talbot Unavailable Unavailable Angel Nixon MD Unavailable Unavailable Reason for Visit * Reason Comments E-prescribe Rx Request Encounter Details Date Type Department Care Team Description 10/05/2020 Refill Adult Medicine [address] [phone] Mariela Schmidt MD E-prescribe Rx Request Social History Tobacco Use [...] Telephone Encounter - Melissa Chung M.A. - 10/06/2020 9:30 AM EDT INES 10/03/2020 F/U appt 01/03/2021 Lab Results Component Value Date HGBA1C 6.9 08/02/2020 MALBUR 39.5 05/10/2020 MALBCR 103.9 05/10/2020 CHOL 104 05/10/2020 LDL 26 05/10/2020 HDL 23 05/10/2020 TRIG 276 05/10/2020 GLU 122 05/10/2020 CREAT 1.46 05/10/2020 * Telephone Encounter - Estefany Rios - 10/06/2020 7:57 AM EDT Patient would like script to be: E-PRESCRIBED/FAXED TO PHARMACY WHEN WAS THE PATIENT'S LAST APPOINTMENT IN ADULT MEDICINE? 10/03/2020 WHEN WAS THE LAST TIME THE PATIENT SAW THEIR PCP? 06/16/2020 Does patient have an upcoming appointment? Yes 01/03/2021 (THE MEDICATION REQUESTED IS ON THE MED LIST ABOVE) All of the medications requested were on the CURRENT MEDS list Did you check the Pharmacy information above?: YES Patient wants: 90 -day supply Is this a mail order prescription request ? NO If the refill is from a FAXED refill request what is the RX # listed on the fax? N/A Patients current insurance carrier is: Payor: [facility] FFS / Plan: [facility] MDCR-ADV HMO $10/$45 [place] [id number] / Product Type: MEDICARE [id number] documented in this encounter Plan of Treatment Not on file documented as of this encounter Visit Diagnoses Diagnosis Type 2 diabetes mellitus with diabetic polyneuropathy, without long-term current use of insulin (HCC) documented in this encounter Care Teams Pattern Scratcher Relationship Specialty Start Date End Date Mariela Schmidt MD PCP - General Internal Medicine 08/14/11 01/24/21 Cyril Loja MD PCP - General Internal Medicine 01/25/21 12/17/21 Nakia Tom MD [address] [place] [address] PCP - General Internal Medicine 12/18/21 Ronnie Sahu MD [address] [place] [address] Specialist Nephrology 05/07/22 Whitney Armendariz [address] [place] [address] Specialist Podiatry 05/07/22 Panda Munguia [address] [place] [address] Specialist Thoracic Surgery 12/18/22 Rich Mera MD [address] [place] [address] Specialist Cardiology 12/27/22 Caitie Gross [address] [place] [address] Specialist Ophthalmology 12/27/22 Angel Nixon MD [address] [place] [address] Specialist Pulmonology 12/27/22 documented as of this encounter
--- OUTSIDE RECORDS SUMMARY | 2024-08-06 17:30 | XMS_ITS | Encounter Summary ---
Author Organization [facility] Address [address] [place] [address] Care Team Providers Care Well Puller Head Name Role Phone Mariela Schmidt MD Primary Care Provider Cyril Ramos MD Primary Care Provider Nakia Kahn MD Primary Care Prov ider Ronnie Sahu MD Unavailable [phone] Black, Whitney Unavailable Unavailable Nilda Panda Unavailable Unavailable Rich Mera MD Unavailable Caitie Talbot Unavailable Unavailable Angel Nixon MD Unavailable Unavailable Reason for Visit * Reason Onset Date Comments Mychart Rx Refill 06/25/2019 Encounter Details Date Type Department Care Team Description 06/25/2019 Refill Adult Medicine [address] [id number] Mariela Schmidt MD Mychart Rx Refill Social History Tobacco Use [...] Telephone Encounter - Carolina Becerril M.A. - 06/25/2019 10:18 AM EST Lab Results Component Value Date CHOL 94 08/15/2018 LDL 21 08/15/2018 HDL 24 08/15/2018 TRIG 245 08/15/2018 SGOT 14 08/15/2018 SGPT 27 08/15/2018 INES 03/16/19 NOV 07/14/19 documented in this encounter Plan of Treatment Not on file documented as of this encounter Visit Diagnoses Not on filedocumented in this encounter Care Teams Well Puller Head Relationship Specialty Start Date End Date Mariela Schmidt MD PCP - General Internal Medicine 08/14/11 01/24/21 Cyril Loja MD PCP - General Internal Medicine 01/25/21 12/17/21 Nakia Tom MD [address] [place] [address] PCP - General Internal Medicine 12/18/21 Ronnie Sahu MD [address] [place] [address] Specialist Nephrology 05/07/22 Whitney Armendariz [address] [place] [address] Specialist Podiatry 05/07/22 Panda Munguia [address] [place] [address] Specialist Thoracic Surgery 12/18/22 Rich Mera MD [address] [place] [address] Specialist Cardiology 12/27/22 Caitie Gross [address] [place] [address] Specialist Ophthalmology 12/27/22 Angel Nixon MD [address] [place] [address] Specialist Pulmonology 12/27/22 documented as of this encounter
--- OUTSIDE RECORDS SUMMARY | 2024-08-06 17:30 | XMS_ITS | Encounter Summary ---
Author Organization [facility] Address [address] [place] [address] Care Team Providers Care Teletype Telegrapher Name Role Phone Mariela Schmidt MD Primary Care Provider Cyril Ramos MD Primary Care Provider Nakia Kahn MD Primary Care Prov ider Ronnie Sahu MD Unavailable [phone] Black, Whitney Unavailable Unavailable Panda Munguia Unavailable Unavailable Rich Mera MD Unavailable Caitie Talbot Unavailable Unavailable Angel Nixon MD Unavailable Unavailable Encounter Details Date Type Department Care Team Description 08/31/2020 [place]. [place] [place] [address] [place] [address] [phone] Md See Social History Tobacco Use Types [...] on filedocumented in this encounter Care Teams Teletype Telegrapher Relationship Specialty Start Date End Date Mariela Schmidt MD PCP - General Internal Medicine 08/14/11 01/24/21 Cyril Loja MD PCP - General Internal Medicine 01/25/21 12/17/21 Nakia Tom MD [address] [place] [address] PCP - General Internal Medicine 12/18/21 Ronnie Sahu MD [address] [place] [address] Specialist Nephrology 05/07/22 Whitney Armendariz [address] [place] [address] Specialist Podiatry 05/07/22 Panda Munguia [address] [place] [address] Specialist Thoracic Surgery 12/18/22 Rich Mera MD [address] [place] [address] Specialist Cardiology 12/27/22 Caitie Gross [address] [place] [address] Specialist Ophthalmology 12/27/22 Angel Nixon MD [address] [place] [address] Specialist Pulmonology 12/27/22 documented as of this encounter
--- OUTSIDE RECORDS SUMMARY | 2024-08-06 17:30 | XMS_ITS | Patient Health Record ---
Author Organization [facility] Address [address] [place] [address] Care Team Providers Care Strap Stitcher Name Role Phone Nakia Matthew Primary Care Provider Unava ilable Black, Whitney Unavailable [phone] Allergies Allergen (clinical drug ingredient) Drug/Non Drug Allergy documented on EMR Reaction Allergy Type Onset Date Status fluticasone Flonase rapid heart beat Drug Allergy Active Results Component Value Reference Range Notes HEMOGLOBIN A1C (GLYCOHEMOGLO BIN) Reviewed date:06/01/2024 11:24:26 AM Interpretation: Performing Lab: Notes/Report: HEMOGLOBIN A1C % (HH) 6.3 Reason For Referral No Information Medications Medication SIG (Take, Route, Frequency, Duration) Notes Start Date End Date Status Metoprolol & Diet Manage Prod 100 mg twice a day 50 mgs 2x a day Active One Touch Delica Lancets Active Atorvastatin Calcium 20 MG 1 tablet Orally Once a day Active Umecta 40 % as directed Externally Not-Taking Eliquis 5 MG Orally twice a day Active amLODIPine Besylate 10 MG 1 tablet Orally Once a day at supper Active Diovan Not-Taking Apixaban 5 MG as directed Orally Not-Taking Lipitor Not-Taking Losartan Potassium 25 MG as directed Orally Once a day Active metFORMIN HCl 500 MG Orally twice a day Active Fish Oil Active Levothyroxine Sodium 88 MCG Orally Once a day, one hour efore breakfast Active SITagliptin Phosphate Not-Taking Ciclopirox Olamine 0.77 % 1 application to affected area Externally Twice a day for 30days 07/09/2011 Not-Taking Pantoprazole Sodium 40 MG 1 tablet 1/2 to 1 hour before morning meal Orally Once a day Active glipiZIDE Not-Taking Isosorbide Dinitrate 30 MG 1 tablet Orally Twice a day Not-Taking Vitamin D Not-Taking Ciclopirox Olamine 0.77 % 1 application to affected area Externally Twice a day for 30 days 01/30/2018 Not-Taking Ciclopirox Olamine 0.77 % 1 application Externally Twice a day to skin of feet including between the toes for 30 days Active Ciclopirox Olamine 0.77 % 1 application Externally Twice a day for 30 days 03/23/2021 Not-Taking Januvia 50 MG 2 tablets Orally Once a day for 30 day(s) Not-Taking Aspirin Not-Taking glipiZIDE 5 MG Orally twice a day Not-Taking Simvastatin Not-Taki ng Trulicity 0.75 MG/0.5ML as directed Subcutaneous Active Immunizations Vaccine Route Administration Date Status Comme nts Pneumococcal Unknown 12/14/2014 Administered Influenza Unknown 08/01/2015 Pending pt didn't get flu shot Influenza Unknown 02/10/2016 Administered Influenza Unknown 02/21/2016 Administered Influenza Unknown 12/27/2017 Administered Influenza Unknown 12/22/2018 Administered Influenza Unknown 02/04/2020 Administered Influenza Unknown 02/01/2022 Administered COVID-19 Pfizer BioNTech Vaccine Unknown 02/14/2021 Administered 1st Dose: 06/29/20 Second Dose: 07/20/20 Social History Tobacco Use: Social History Observation Description Date Details (start date - stop date) Never Smoker NA - NA Tobacco Use/Smoking Question Answer Notes Are you a: nonsmoker Additional Findings: Tobacco Non-User Current no n-smoker Alcohol Screen Question Answer Notes Did you have a drink containing alcohol in the p ast year? No Points 0 Interpretation Negative Tobacco use other than smoking: Question Answer Notes Are you an other tobacco user? No Problems Problem Type SNOMED Code ICD Code Onset Dates Problem Status W/U Status Risk Notes Problem Acquired hammer toe of left foot (7575064865851390 ) Other hammer toe(s) (acquired), left foot (M20.42) Active confirmed Problem Polyneuropathy due to type 2 diabetes mellitus (807686481) Type 2 diabetes mellitus with diabetic polyneuropathy (E11.42) Active confirmed Problem Localized, primary osteoarthritis of the ankle and/or foot (429729128) Arthritis of joint of lesser toe, left (M19.072) Active confirmed Vital Signs Blood pressure diastolic 74 mm Hg 06/01/2024 Height 6dt39tb in 06/01/2024 Blood pressure systolic 125 mm Hg 06/01/2024 Weight 194 lbs 06/01/2024 BMI 27.05 kg/m2 06/01/2024 Procedures Procedure Date Ordered Date Performed Result Body Sit e 51385-CCDKQKO NAIL, 6 OR MORE 01/30/2024 N/A 37098-NFDT SKIN LESIONS, 2 TO 4 01/30/2024 N/A 57338-TMMBTTU NAIL, 6 OR MORE 06/01/2024 N/A 66008-TRVY SKIN LESIONS, 2 TO 4 06/01/2024 N/A Encounters Encounter Location Date Provider Diagnosis [facility] [address] [address] 01/30/2024 Whitney Black Type 2 diabetes rhona itus with diabetic polyneuropathy E11.42 ; Tinea unguium B35.1 and Tinea pedis of both feet B35.[address] [facility] [address] 06/01/2024 Whitney Black Tinea pedis of both [...] Treatment Notes Treatment Clinical Notes Section Notes 01/30/2024 Type 2 diabetes mellitus with diabetic polyneuropathy (ICD-10 - E11.42) 06/01/2024 Other hammer toe(s) (acquired), left foot (ICD-10 - M20.42) 06/01/2024 Tinea pedis of both feet (ICD-10 - B35.3) 06/01/2024 Type 2 diabetes mellitus with diabetic polyneuropathy (ICD-10 - E11.42) 01/30/2024 Tinea unguium (ICD-1 0 - B35.1) 01/30/2024 Tinea pedis of both feet (ICD-10 - B35.3) 06/01/2024 Tinea unguium (ICD-1 0 - B35.1) 06/01/2024 Pain in left toe(s) (ICD-10 - M79.675) 06/01/2024 Arthritis of joint o f lesser toe, left (ICD-10 - M19.072) 06/01/2024 Subluxation of metatarsophalangeal joint of toe, initial encounter (ICD-10 - S93.149A) Plan Of Treatment Pending Test Test Name Order Date 53312-RHWUTYL NAIL, 6 OR MORE 07/09/2011 17453-CHJQSIV NAIL, 6 OR MORE 07/07/2012 45790-LZOXMGW NAIL, 6 OR MORE 07/13/2013 87225-CZDECZX NAIL, 6 OR MORE 01/30/2018 09224-FSTKXTR NAIL, 6 OR MORE 07/31/2018 57891-ULJHBXY NAIL, 6 OR MORE 01/01/2019 56910-VWEIJXP NAIL, 6 OR MORE 06/04/2019 99679-VUVPXMF NAIL, 6 OR MORE 03/03/2020 08742-DGSOTRA NAIL, 6 OR MORE 06/09/2020 78619-KXTUBBY NAIL, 6 OR MORE 12/03/2019 04199-VRKXLMK NAIL, 6 OR MORE 09/08/2020 24773-ASPXPNL NAIL, 6 OR MORE 12/19/2020 17702-EISEEYJ NAIL, 6 OR MORE 03/23/2021 95681-YDYHCDG NAIL, 6 OR MORE 06/29/2021 92310-EQYHDEH NAIL, 6 OR MORE 10/30/2021 15882-ZPGAYZX NAIL, 6 OR MORE 03/01/2022 84648-ZIPPOGA NAIL, 6 OR MORE 06/28/2022 96448-OTLLNHJ NAIL, 6 OR MORE 01/30/2024 37226-EBRLHDZ NAIL, 6 OR MORE 06/01/2024 26439-NVCAHIW NAIL, 1-5 07/13/2013 03443-SOTGTDG NAIL, 1-5 08/09/2014 64814- Debride <25 sq cm 07/13/2013 90448-SHLD SKIN LESIONS, 2 TO 4 08/01/19 16 01832-CYRR SKIN LESIONS, 2 TO 4 01/02/20 19 82746-AEPZ SKIN LESIONS, 2 TO 4 01/31/20 18 11026-HSUM SKIN LESIONS, 2 TO 4 08/01/19 19 23892-IFIE SKIN LESIONS, 2 TO 4 07/31/19 17 05922-JGVI SKIN LESIONS, 2 TO 4 08/02/19 18 29537-EQPN SKIN LESIONS, 2 TO 4 06/30/19 22 35823-RPYS SKIN LESIONS, 2 TO 4 03/23/20 21 00615-PCTJ SKIN LESIONS, 2 TO 4 12/20/19 21 69056-HRHF SKIN LESIONS, 2 TO 4 03/03/20 20 57256-HLVQ SKIN LESIONS, 2 TO 4 06/09/19 21 16897-YDON SKIN LESIONS, 2 TO 4 09/09/19 21 90865-NJPD SKIN LESIONS, 2 TO 4 12/03/19 20 21413-RXZJ SKIN LESIONS, 2 TO 4 06/04/19 20 23511-YCTG SKIN LESIONS, 2 TO 4 06/01/19 25 03120-FNBH SKIN LESIONS, 2 TO 4 01/30/20 24 11644-DPSN SKIN LESIONS, 2 TO 4 06/29/19 23 12453-GQFO SKIN LESIONS, 2 TO 4 03/01/20 22 33564-HHFJ SKIN LESIONS, 2 TO 4 10/31/19 22 U8359-KKIETQZY DYSTROPHIC NAILS ANY # P1031-CPDMEUVX DYSTROPHIC NAILS ANY # H1738-UDGAFJOO DYSTROPHIC NAILS ANY # R4692-HIZARSUH DYSTROPHIC NAILS ANY # Next Appt Details Provider Name:Whitney Armendariz , 09/28/2024 11:30:00 AM, [address] [place], [address], Insurance Providers Payer Name Payer Address Payer Phone Subscriber Number Group Number Insured Name Patient Relationship to Insured Coverage Start Date Coverage End Date Blue[employer] 65 Medicare Preferred [address] [place] [address] [phone] [id number] Ian Chapman Self - patient is the insured Medical (General) History Medical History History ICD Code hypertension Cholesterol diabetic type 2 nephrolithiasis Hypothyroidism Neuropathy quad bipass Surgical History Surgery Date(Month/Year) hernia quad bypass 03/2023 Hospitalization History Reason [facility]- quad bypass 03/2023 [place], 3 days, [place], atrial flutter 07/09 14
--- OUTSIDE RECORDS SUMMARY | 2024-08-06 17:30 | XMS_ITS | Clinical Summary ---
Author Organization [facility] Address [address] [place] [phone] Phone Care Team Providers Care Second Miller Name Role Phone Nakia Tom MD Primary Care Provider + Allergies Active Allergy Reactions Criticality Noted Date Comments Fluticasone Other (see comments) 10/09/2010 Other reaction(s): Flushing, feeling of warmth, heart raced Lisinopril Shortness of breath,Other (see comments) High 09/14/2009 Other reaction(s): OTHER Medications apixaban (ELIQUIS) 5 MG tablet Take 5 mg by mouth in the morning and 5 mg in the evening. Active metFORMIN (GLUCOPHAGE) 500 MG tablet Take 1,000 mg by mouth in the morning and 1,000 mg in the evening. Take with meals. Active Dulaglutide (Trulicity) 0.75 MG/0.5ML solution pen-injector Inject under the skin Active atorvastatin (LIPITOR) 40 MG tablet Take 40 mg by mouth 1 (one) time each day 12/06/2022 Active levothyroxine (SYNTHROID, LEVOTHROID) 88 MCG tablet Take 88 mcg by mouth 1 (one) time each day 10/31/2022 Active metoprolol tartrate 25 MG tablet TAKE 1 TABLET BY MOUTH TWO TIMES A DAY 12/06/2022 Active pantoprazole (PROTONIX) 40 MG EC tablet TAKE 1 TABLET BY MOUTH TWO TIMES A DAY 01/05/2023 Active omega-3 acid ethyl esters (LOVAZA) 1 g capsule Take 1 g by mouth in the morning and 1 g in the evening. Active losartan (COZAAR) 25 MG tablet TAKE 1 TABLET BY MOUTH 1 TIME EACH DAY. 90 tablet 3 01/30/2023 Active amLODIPine (NORVASC) 10 MG tablet Take 10 mg by mouth 1 (one) time each day 90 tablet 3 07/08/2023 Active isosorbide mononitrate (IMDUR) 30 MG 24 hr tablet Take 30 mg by mouth 1 (one) time each day Do not crush or chew. Active Active Problems Problem Noted Date Diagnosed Date Acute nontraumatic kidney injury 01/07/2023 Disorder of vitamin A 01/07/2023 01/07/2023 Hypertensive disorder 01/07/2023 01/07/2023 Polyneuropathy due to type 2 diabetes mellitus 0 01/07/2023 01/07/2023 Diabetes mellitus 01/07/2023 01/07/2023 History of coronary artery bypass grafting 12/2701/07/2023 Stage 3b chronic kidney disease 07/16/2022 Tinea unguium 12/27/2020 01/07/2023 Peripheral neuropathy 12/27/2020 01/07/2023 Simple renal cyst 07/16/2019 01/07/2023 Overview (01/07/2023): Followed by urology (Dr. York) Ascending aorta dilatation 05/29/201801/07 Overview (01/07/2023): CT chest 05/29/18 - 4.1 cm at level of main pulm artery Multiple nodules of lung 09/03/2017 023 Overview (01/07/2023): CT 05/29/18: 2 mm peripheral pulmonary nodule right upper lobe, 3 mm pulmonary nodule peripheral right upper lobe (image 44), 3 mm pulmonary nodule peripheral right upper lobe (image 72), 2 mm pulmonary nodule left upper lobe (image 100), 2 mm calcified pulmonary nodule left lower lobe (image 124), 3 mm right middle lobe nodule (image 177/309), 1.5 mm calcified juxtapleural nodule right lower lobe posteriorly (image 188) unchanged. Rec rpt 1 year. Atrial flutter 12/14/2014 01/07/2023 Overview (01/07/2023): Dr Mera Glaucoma suspect 10/05/2013 01/07/2023 Overview (01/07/2023): Dr Chapman note 09/21/2003 Hyperuricemia 02/02/2013 01/07/2023 Subclinical hypothyroidism 03/23/201001/07 Overview (01/07/2023): TSH 14.39 02/2010, on Lt-4 replacement therapy Erectile dysfunction 09/04/2008 01/07/2023 Overview (01/07/2023): Followed by urology in the past Benign essential hypertension 07/24/2005 Disorder of nervous system due to diabetes melli tus 07/24/2005 Overview (01/07/2023): Sees clinical engineer Dr. Armendariz (last visit 07/13/13) Stage 3a chronic kidney disease Overview (01/15/2022): HTN Nephrolithiasis Hypertensive chronic kidney disease Hyperlipidemia Encounters Date Type Department Care Team Description 06/01/2024 2:00 PM EST Office Visit [facility] [address] [address] Ronnie Sahu MD Stage 3b chronic kidney disease (HCC) (Primary Dx); Hypertensive chronic kidney disease; Nephrolithiasis; Mixed hyperlipidemia from Last 3 Months Immunizations Immunization Administration Dates Next Due H1N1 Inj Preservative Free 03/28/2009 Influenza (IM) Preservative Free 020,12/22/2018,12/27/2017,02/20,02/10/2016,03/09/2014,02/02/2013 ,04/08/2012,03/06/2011,02/27/2010,10/2008,03/05/2008,03/27/2007, 6 Influenza Split High Dose Pr eservative Free IM 02/01/2022,01/23/2021,01/18/2020,03/08,01/06/2018,06/17/2016 Moderna SARS-COV-2 02/23/2022 Pfizer SARS-COV-2 02/14/2021,07/20/2020,06/30/19 21 Pneumococcal Conjugate 13-Valent 05/06/2017 Pneumococcal Polysaccharide 12/14/2014, 7 Td 12/29/2001 Td, Unspecified 12/29/2001 Tdap 11/05/2023,04/08/2012 Zoster 08/26/2012 Family History Medical History Relation Comments Heart disease Father Hypertension Father Hypertension Sibling 1 Diabetes Sibling 2 3 Brothers type 2 Relation Status Comments Father Sibling 1 Sibling 2 Social History Tobacco Use Types Packs/Day Years Used Date Smoking Tobacco: Former Cigarettes Smokeless Tobacco: Never Tobacco Cessation:Counseling Given: Not Answered Comments:Smoking History Info:Every day Alcohol Use Standard Drinks/Week Comments Never 0 (1 standard drink = 0.6 oz pur e alcohol) Sex and Gender Information Value Date Recorded Sex Assigned at Not on file Legal Sex Male 4:56 PM EST Gender Identity Not on file Sexual Orientation Not on file Last Filed Vital Signs Vital Sign Reading Time Taken Comments Blood Pressure 148/58 06/01/2024 1:58 PM EST Pulse 54 06/01/2024 1:58 PM EST Temperature - - Respiratory Rate - - Oxygen Saturation 98% 06/01/2024 1:58 PM EST Inhaled Oxygen Concentration - - Weight 92.5 kg (204 lb) 06/01/2024 1:58 PM EST Height 182.9 cm (6') 05/09/2020 12:01 PM EST Body Mass Index 27.67 05/09/2020 12:01 PM EST Plan of Treatment Upcoming Encounters Date Type Department Care Team (Late st Contact Info) Description 01/04/2025 2:00 PM EDT Office Visit [facility] [address] [address] Ronnie Sahu MD [address] [address] Health Maintenance Due Date Last Done Comments Colorectal Cancer Screening: Annual FOBT 1998 Colorectal Cancer Screening: Colonoscopy 1998 Colorectal Cancer Screening: Sigmoidoscopy 1998 Diabetes: Ophthalmology Exam 05/22/2020 11/12/2011, 04/26/2010, 02/04/2009, Additional history exists Diabetes: Pedal Pulse Checked 05/22/2020 Diabetes: Sensory Foot Exam 05/22/2020 Diabetes: Visual Foot Exam 05/22/2020 Diabetes: Hemoglobin A1C 08/24/2024 025, 10/28/2023, 04/19/2023, Additional history exists Influenza Vaccine (Season Ended) 2024 02/01/2022, 01/23/2021, 02/04/2020, Additional history exists Pneumococcal Vaccine: 50+ Years Completed 05/06/2017, 12/14/2014, 03/27/2007 Pneumococcal Vaccine: Peds (0 to 5 Years) and At-Risk Patients (6 to 49 Years) Discontinued 05/06/2017, 12/14/2014, 03/27/2007 Hepatitis B Vaccine Aged Out No longe r eligible based on patient's age to complete this topic Procedures Procedure Name Priority Date/Time Associated Diagnosis Comments PHOSPHATE ( PHOSPHORUS) Routine 05/27/2024 2:50 PM EST URINALYSIS, MICROSCOPIC (HC) Routine 05/27/2024 2:50 PM EST from Last 3 Months Results * Urinalysis, Microscopic (05/27/2024 2:50 PM EST) RBC, Urine 2.7 0 - 4 /HPF [facility] WBC, Urine 1.4 0 - 4 /HPF [facility] Squamous Epithelial, Urine 19 0 - 60 /LPF [facility] Bacteria, Urine Negative Negative /HPF [facility] Hyaline Casts, UA 1.6 0 - 3 /LPF [facility] 05/27/2024 2:50 PM EST 05/27/2024 4:07 PM EST Ronnie Sahu MD LAB [id number] LICITED RESULTS Final Result Performing Organization Address City/[facility]/ZIP Co de Phone Number [facility] [address] [place] [address] * Phosphorus (05/27/2024 2:50 PM EST) Phosphorus 3.7 2.5 - 4.5 mg/dL [facility] 05/27/2024 2:50 PM EST 05/27/2024 6:00 PM EST Ronnie Sahu MD LAB BLOOD ORDERABLES Final Resu lt Performing Organization Address City/[facility]/ZIP Co de Phone Number [facility] [address] [place] [address] from Last 3 Months Insurance [facility] PPO Blue([id number]) [facility] ANGELINA Farias([id number]) Care Teams Second Miller Relationship Specialty Start Date End Date Nakia Tom MD PCP - General 01/15/22
--- OUTSIDE RECORDS SUMMARY | 2024-08-06 17:31 | XMS_ITS | Encounter Summary ---
Author Organization [facility] Address [address] [place] [address] Care Team Providers Care Recycling Attendant Name Role Phone Nakia Tom MD Primary Care Prov ider Ronnie Sahu MD Unavailable [phone] Black, Whitney Unavailable Unavailable Sandy Munguiavash Unavailable Unavailable Rich Mera MD Unavailable Caitie Talbot Unavailable Unavailable Angel Nixon MD Unavailable Unavailable Encounter Details Date Type Department Care Team Description 03/18/2023 Home Security Professional Report Medical Records [address] [place] [id number] Rich Mera MD Social History Tobacco Use [...] suspected to have Coronavirus/COVID-19? No / Unsure 02/26/2023 1:04 PM EST documented as of this encounter Plan of Treatment Not on file documented as of this encounter Visit Diagnoses Not on filedocumented in this encounter Care Teams Recycling Attendant Relationship Specialty Start Date End Date Nakia Tom MD [address] [place] [address] PCP - General Internal Medicine 12/18/21 Ronnie Sahu MD [address] [place] [address] Specialist Nephrology 05/07/22 Whitney Armendariz [address] [place], [place] [phone] Specialist Podiatry 05/07/22 Panda Munguia [address] [place], [place] [phone] Specialist Thoracic Surgery 12/18/22 Rich Mera MD [address] [place] [address] Specialist Cardiology 12/27/22 Caitie Gross [address] [place], [place] [phone] Specialist Ophthalmology 12/27/22 Angel Nixon MD [address] [place] [address] Specialist Pulmonology 12/27/22 documented as of this encounter
--- OUTSIDE RECORDS SUMMARY | 2024-08-06 17:31 | XMS_ITS | Clinical Summary ---
Author Organization [facility] Address [address] [place] [address] Care Team Providers Care Golf Ball Marker Name Role Phone Nakia Tom MD Primary Care Prov ider Ronnie Sahu MD Unavailable [phone] Black, Whitney Unavailable Unavailable Panda Munguia Unavailable Unavailable Rich Mera MD Unavailable Caitie Talbot Unavailable Unavailable Angel Nixon MD Unavailable Unavailable Allergies Active Allergy Reactions Severity Noted Date Comments Fluticasone Propionate Flushing, feeling of warmth 10/09/2010 Lisinopril OTHER 09/14/2009 Medications Medication Sig Dispensed Refills Start Date End Date Status [place]-3 Fatty Acids (FISH OIL) 1000 MG Cap Take by mouth. 0 Active OneTouch Ultra stripIndications :Type 2 diabetes mellitus with diabetic polyneuropathy, without long-term current use of insulin (HCC) USE TO TEST BLOOD SUGAR 1 TO 2 TIMES A DAY 200 Strip 0 08/07/2021 Active OneTouch Delica Lancets 33G Misc Apply 1 Each topically daily. 100 Each 1 10/20/2021 Active aspirin 81 MG EC tablet Take 1 Tablet by mouth. 0 12/06/2022 Active pantoprazole (PROTONIX) 40 MG tablet TAKE 1 TABLET BY MOUTH TWO TIMES A DAY 0 01/05/2023 Active Eliquis 5 MG Tab TAKE 1 TABLET BY MOUTH TWICE A DAY FOR 90 DAYS 0 06/04/2023 Active metoprolol (LOPRESSOR) 50 MG tablet Take 1 Tablet by mouth 2 Times Daily. 0 06/12/2023 Active amlodipine (NORVASC) 2.5 MG tablet Take 1 Tablet by mouth. 0 07/08/2023 Active losartan (COZAAR) 25 MG tablet Take 1 Tablet by mouth daily. 0 09/24/2023 Active atorvastatin (LIPITOR) 40 MG tablet Take 1 Tablet by mouth daily. 90 Tablet 0 11/05/2023 Active Dulaglutide (Trulicity) 0.75 MG/0.5ML Solution Pen-injector Inject 0.5 mL into the skin every 7 days. 6 mL 0 11/05/2023 Active levothyroxine (SYNTHROID, LEVOTHROID) 88 MCG tablet Take 1 Tablet by mouth daily. 90 Tablet 1 11/05/2023 Active metformin (GLUCOPHAGE) 500 MG tablet TAKE 2 TABLETS BY MOUTH TWICE DAILY WITH MEALS 360 Tablet 0 02/07/2024 Active simvastatin (ZOCOR) 20 MG tablet TAKE 1 TABLET AT BEDTIME 90 Tab 1 08/06/2014 09/19/2021 Discontinued (reorder) Active Problems Patient Care Coordination No te Formatting of this note is d ifferent from the original. Checking Your Blood Sugars Please check your blood sugars every day. Please check your sugars at the following times of day: before breakfast and before dinner Your Blood Sugar Goals Pre Meal: 90-130 2 hours after meals: 110-160 Bedtime: 110-150 Use the Results ?? Bring your glucometer to every appointment ?? Write your fingerstick blood sugars down on a log sheet or record book. Bring them to your appointment ?? Look for patterns in the numbers. The results help you and your provider make decisions about your diabetes treatment plan. Your Results and your Goals Your Result / Date of Completion Your Goal / How Often to Assess Component Value Date HGBA1C 8.2 06/11/2015 Less than 7%--- 2-4 times per year BP Readings from Last 1 Encounters: 06/16/15 122/72 Less than 130/80--- once per year Component Value Date LDL TNP 06/11/2015 LDL less than 100--- once per year Component Value Date MALBUR 9.7 06/11/2015 Less than 30--- once per year Wt Readings from Last 1 Encounters: 06/16/15 216 lb 6.4 oz (98.158 kg) Your goal weight by next visit: 210 --- reassess 2-4 times a year Health Maintenance Due Topic Date Due ? ? Abdominal Aortic Aneurysm (Aaa) Screening 2014 ? ? Influenza (##1 of 1) 12/21/2014 ? ? Diabetes: Annual Care Plan 03/09/2015 Your Action Plan Check blood glucose as directed and write down all results. Contact me if you experience any barriers to care such as inability to purchase your medication, difficulty getting to your appointments or difficulty understanding your care plan When to Call your Healthcare Provider If your blood sugar falls below 70 and you do not know why or you become unconscious If you are sick and unable to take liquids because or nausea or vomiting If you have a fever over 101 If your blood sugar is 300 or higher on greater than 3 separate occasions during the same week If you are just unsure what to do Educational Resources [place] [employer] (www.diabetes.org) Centers for Disease Control and Prevention (www.cdc.gov/diabetes) This care plan was created in collaboration with Ian Chapman on 06/16/2015 Problem Noted Date S/P quadruple vessel bypass 12/27/2022 Presence of aortocoronary bypass graft 0 12/27/2022 Stage 3a chronic kidney disease 05/07/19 23 Overview: HTN Peripheral neuropathy 12/27/2020 Tinea unguium 12/27/2020 Simple cyst of kidney 07/16/2019 Overview: Followed by urology (Dr. York) Ascending aorta dilatation 05/29/2018 Overview: CT chest 05/29/18 - 4.1 cm at level of main pulm artery Pulmonary nodules 09/03/2017 Overview: CT 05/29/18: 2 mm peripheral pulmonary nodule [...] Rec rpt 1 year. 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 Armendariz (last visit 07/13/13) Resolved Problems Problem Noted Date Resolved Date diabetes mellitus type 2 wit h renal manifestations, not stated as uncontrolled 07/17/2012 02/02/2013 Overview: (Isolated Microalbumin 25 on 09/03/2008 and 44 on 11/2012 - does not meet NKF KDOQI definition of microalbuminuria) Diabetic polyneuropathy 03/28/2009 02/03/20 13 Overview: Duplicate entry Immunizations Name Administration Dates Next Due COVID-19 (Moderna) PT Reported 02/23/2022 COVID-19 (Pfizer) 02/14/2021,07/20/2020,06/30/19 21 Influenza (> 6 Months) 02/01/2022,2019,12/22/2018,12/27,02/21/2016,02/10/2016,03/09/2014 ,02/02/2013,04/08/2012,03/06/2011,11/2009,03/28/2009,03/05/2008, 7,02/07/2006 Influenza H1N1 Pandemic Flu Vaccine 03/28/2009 Influenza vaccine high dose age 65 and over 02/01/2022,01/23/2021,01/18/2020,03/08,01/06/2018,06/17/2016 Pneumoccoccal(Adult) Polysac charide PPSV23 12/14/2014,03/27/2007 Pneumococcal Conjugate PCV-13 05/06/2017 TD (STATE SUPPLIED FOR ADULT S AND CHILDREN) 12/29/2001 TETANUS/DIPTHERIA (ADULT) 12/29/2001 Tdap 11/05/2023,04/08/2012 Zostavax 08/26/2012 Family History Medical History Relation Name Comments Blindness Negative Hx Cataract Negative Hx Glaucoma Negative Hx Macular Degeneration Negative Hx Strabismus Negative Hx Relation Name Status Comments Brother Alive 4 brothers Daughter 1 Alive Daughter 2 Alive Father CAD, DM Mother (Age 74) brain aneu rysm Sister Alive 3 sisters Son 1 Alive Son 2 Alive Social History Tobacco Use Types Packs/Day Years Used Date Smoking Tobacco: Former Cigarettes 2 30 0 04/22/1963 - 04/1996 Smokeless Tobacco: Never Tobacco Cessation:Counseling Given: Not Answered Comments:QUIT 1996 approx Started smoking @ age 13 Alcohol Use Standard Drinks/Week Comments No 0 (1 standard drink = 0.6 oz pur e alcohol) Sex Assigned at Date Recorded Not on file Job Start Date Occupation Industry Not on file Not on file Not on file Last Filed Vital Signs Vital Sign Reading Time Taken Comments Blood Pressure 130/66 11/05/2023 9:05 AM EDT Pulse 50 11/05/2023 9:05 AM EDT Temperature 36.6 ??C (97.8 ??F) 11/05/2023 9:05 AM ED T Respiratory Rate 15 11/05/2023 9:05 AM EDT Oxygen Saturation 98% 11/05/2023 9:05 AM EDT Inhaled Oxygen Concentration - - Weight 84.6 kg (186 lb 6.4 oz) 11/05/2023 9:05 A M EDT Height 182.9 cm (6') 11/05/2023 9:05 AM EDT Body Mass Index 25.28 11/05/2023 9:05 AM EDT Plan of Treatment Health Maintenance Due Date Last Done Comments SHINGLES VACCINE (2 of 3) 10/21/2012 08/26/2012 DIABETES: ANNUAL EYE EXAM 08/22/20222021 (External Completion), 08/08/2020, 08/08/2020 (External Completion), Additional history exists Covid-19 Vaccine (5 2022-2 4 season) 2023 02/23/2022, 02/14/2021, 07/20/2020, Additional history exists DIABETES: BLOOD SUGAR CONTRO L TEST (HGBA1C) 01/28/2024 10/28/2023, 04/19/2023, 05/07/2022, Additional history exists BMI CHECK/ADVISE 04/22/2024 11/05/2023, 10/2023, 02/26/2023, Additional history exists DIABETES: ANNUAL URINE PROTE IN TEST (MICROALBUMIN) 08/12/2024 08/13/2023, 05/07/2022, 09/19/2021, Additional history exists DIABETES/HEART DISEASE: RJ AL CHOLESTEROL (LDL) 10/27/2024 10/28/2023, 05/07/2022, 09/19/2021, Additional history exists INFLUENZA (Season Ended) 2024 022, 02/01/2022, 01/23/2021, Additional history exists DIABETES: ANNUAL FOOT EXAM 01/29/202501/29, 03/01/2022, 03/23/2021, Additional history exists COLON CANCER SCREENING - [place] 05/16/20252022 DTAP/TDAP/TD (3 - Td or Tdap) 11/04/2033, 04/08/2012, 12/29/2001 HEPATITIS C SCREENING Completed 04/26/2013 PNEUMOCOCCAL VACCINE Completed 05/06/2017, 12/14/2014, 03/27/2007 ABDOMINAL AORTIC ANEURYSM (A AA) SCREENING Completed 05/15/2017 Care Teams Golf Ball Marker Relationship Specialty Start Date End Date Nakia Tom MD [address] [place] [address] [phone] PCP - General Internal Medicine 12/18/21 Ronnie Sahu MD [address] [place] [address] [phone] Specialist Nephrology 05/07/22 Whitney Armendariz [address] [place] [address] [phone] Specialist Podiatry 05/07/22 Panda Munguai [address] [place] [address] [phone] Specialist Thoracic Surgery 12/18/22 Rich Mera MD [address] [place] [address] [phone] Specialist Cardiology 12/27/22 Caitie Gross [address] [place] [address] [phone] Specialist Ophthalmology 12/27/22 Angel Nixon MD [address] [place] [address] [phone] Specialist Pulmonology 12/27/22
--- OUTSIDE RECORDS SUMMARY | 2024-08-06 17:31 | XMS_ITS | Encounter Summary ---
Author Organization [facility] Address [address] [place] [address] Care Team Providers Care Furnace Feeder Name Role Phone Nakia Tom MD Primary Care Prov ider Ronnie Sahu MD Unavailable [phone] Black, Whitney Unavailable Unavailable Panda Munguia Unavailable Unavailable Rich Mera MD Unavailable Caitie Talbot Unavailable Unavailable Angel Nixon MD Unavailable Unavailable Encounter Details Date Type Department Care Team Description 07/27/2022 Supervisor Plasma Report Medical Records [address] [place] [phone] Angel Nixon MD Social History Tobacco Use Types Packs/Day [...] on filedocumented in this encounter Care Teams Furnace Feeder Relationship Specialty Start Date End Date Nakia Tom MD [address] [place] [address] [phone] PCP - General Internal Medicine 12/18/21 Ronnie Sahu MD [address] [place] [address] [phone] Specialist Nephrology 05/07/22 Whitney Armendariz [address] [place] [address] [phone] Specialist Podiatry 05/07/22 Panda Munguia [address] [place] [address] [phone] Specialist Thoracic Surgery 12/18/22 Rich Mera MD [address] [place] [address] [phone] Specialist Cardiology 12/27/22 Caitie Gross [address] [place] [address] [phone] Specialist Ophthalmology 12/27/22 Angel Nixon MD [address] [place] [address] [phone] Specialist Pulmonology 12/27/22 documented as of this encounter
--- OUTSIDE RECORDS SUMMARY | 2024-08-06 17:31 | XMS_ITS ---
Author Organization [facility] [place] Address [address] [place] [address] Care Team Providers Care Lining Layer Name Role Phone Nakia Matthew Primary Care Provider Unava ilable Black, Whitney Unavailable [phone] Allergies Allergen (clinical drug ingredient) Drug/Non Drug Allergy documented on EMR Reaction Allergy Type Onset Date Status fluticasone Flonase rapid heart beat Drug Allergy Active REASON FOR VISIT At Risk Footcare, Skin Problem Medications Medication SIG (Take, Route, Frequency, Duration) Notes Start Date End Date Status Metoprolol & Diet Manage Prod 100 mg twice a day 50 mgs 2x a day Active One Touch Delica Lancets Active Trulicity 0.75 MG/0.5ML as directed Subcutaneous Active Ciclopirox Olamine 0.77 % 1 application Externally Twice a day for 30 days 03/23/2021 Not-Taking Vitamin D Not-Taking Eliquis 5 MG Orally twice a day Active Fish Oil Active Levothyroxine Sodium 88 MCG Orally Once a day, one hour efore breakfast Active Losartan Potassium 25 MG as directed Orally Once a day Active metFORMIN HCl 500 MG Orally twice a day Active Isosorbide Dinitrate 30 MG 1 tablet Orally Twice a day Active Pantoprazole Sodium 40 MG 1 tablet 1/2 to 1 hour before morning meal Orally Once a day Active amLODIPine Besylate 10 MG 1 tablet Orally Once a day at supper Active Apixaban 5 MG as directed Orally Active Atorvastatin Calcium 20 MG 1 tablet Orally Once a day Active Ciclopirox Olamine 0.77 % 1 application Externally Twice a day to skin of feet including between the toes for 30 days Active Ciclopirox Olamine 0.77 % 1 application to affected area Externally Twice a day for 30days 07/09/2011 Not-Taking Diovan Not-Taking Lipitor Not-Taking Umecta 40 % as directed Externally Not-Taking Simvastatin Not-Taki ng Januvia 50 MG 2 tablets Orally Once a day for 30 day(s) Not-Taking Aspirin Not-Taking glipiZIDE Not-Taking SITagliptin Phosphate Not-Taking glipiZIDE 5 MG Orally twice a day Not-Taking Ciclopirox Olamine 0.77 % 1 application to affected area Externally Twice a day for 30 days 01/30/2018 Not-Taking Social History Tobacco Use: Social History [...] Are you an other tobacco user? No Vital Signs Height 5ft 11in in 01/30/2024 Weight 187 lbs 01/30/2024 BMI 26.08 kg/m2 01/30/2024 Blood pressure systolic 128 mm Hg 01/30/20 24 Blood pressure diastolic 73 mm Hg 024 Procedures Procedure Date Ordered Date Performed Result Body Sit e 62179-GZOGSEA NAIL, 6 OR MORE 01/30/2024 N/A 95703-PCUS SKIN LESIONS, 2 TO 4 01/30/2024 N/A Encounters Encounter Location Date Provider Diagnosis [facility] [place] [address] [place] [address] 01/30/2024 Whitney Black Type 2 diabetes mellitus with diabetic polyneuropathy E11.42 ; Tinea unguium B35.1 and Tinea pedis of both feet B35.3 Assessments Encounter Date Diagnosis (ICD Code) Assessment Notes Treatment Notes Treatment Clinical Notes Section Notes 01/30/2024 Type 2 diabetes mellitus with diabetic polyneuropathy (ICD-10 - E11.42) 01/30/2024 Tinea unguium (ICD-10 - B35.1) 01/30/2024 Tinea pedis of both feet (ICD-10 - B35.3) Plan Of Treatment Medication Medication Name Sig Start Date Stop Date Notes Ciclopirox Olamine 0.77 % 1 application Externally Twice a day to skin of feet including between the toes for 30 days Pending Test Test Name Order Date 19518-DRPNMOD NAIL, 6 OR MORE 01/30/2024 61988-EBWL SKIN LESIONS, 2 TO 4 01/30/20 24 Next Appt Details Follow Up: prn, Reason: Provider Name:Whitney Ni Armendariz , 09/28/2024 11:30:00 AM, [address] [place], [address], Procedure Notes * Category Sub-Category Detail Notes Debride Nail 6-10 Nail debridement Performance o f this nail treatment by a nonprofessional would put this patients foot and overall health at risk. Therefore, nail debridement was performed extensively to reduce/remove overall nail length, girth, thickness, subungual debris, and necrotic tissue, by manual and/or electrical means through the use of a nail nipper and/or dremel-type computer numerical control grinder, to a more viable healthy nail plate or bed tissue 6-10. Silver nitrate used for any petechial bleeding as necessary. Definitive antifungal treatment options have been reviewed and discussed with the patient. The patient chooses, no pharmaceutical tx - 64379 Keratoma Treatment Parring or Cutting o f Benign Hyperkeratotic Lesion(s) 88327 (2-4 Lesions) - The Benign hyperkeratotic lesions, as described above were pared, and/or cut utilizing a sterile #15 blade, tissue nippers, and/or dremel Progress Notes * Ian POWER CDOB: 0 (73 yo M)Acc No.[id number]:01/30/2024 Progress Note Patient:?Ian POWER C Provider:?Whitney Armendariz DPM :1950???Age:73 Y???Sex:Male Stu e:01/30/2024 Address:[address] [place], [place] [id number] Pcp:Nakia Matthew Subjective: * Chief Complaints: * ???At Risk FootcareSkin Prob gaston * HPI: ???At Risk footcare:?Pt States Last PCP Visit:?Date?01/08/2024 ???Skin problems:?Nature:?scaling , redness.?Location:?B/L .?Duration:?several days.?Course:?worse.? * ROS:?General/Constitutional:?Nausea?denies.?Vomiting?denies.?Hunger Thirst?denies.?Loss appetite?denies.?Chills?denies.?Fatigue?denies.?Fever?denies.?Night Sweats?denies.?Unexplained weight loss?denies.?Ophthalmologic:?Blurred vision?denies.?Red eye?denies.?HEENTM:?Dentures?denies.?Dizziness?denies.?Glasses/contacts?admits.?Retinopathy?den ies.?Blurred/double vision?denies.?TMJ?denies.?Discharge/drainage?denies.?Implants?denies.?Hard of hearing denies.?Difficulty chewing/swallowing/speaking?denies.?Nose bleeds?denies.?Sore mouth?denies.?Swollen glands?denies.?Respiratory:?On O xygen?denies.?Pneumonia/pleurisy?denies.?Bronchitis?denies.?Emphysema?denies.?Co ughing?denies.?Cough blood?denies.?Shortness of breath?denies.?Wheezing?denies.?Cardiovascular:?Pacemaker?denies.?MVP?denies.?WPW?denies.?CHF?denies.?Heart attack?denies.?Septal defect?denies.?Rapid beat?denies.?Chest pain ?denies.?Atrial Fib.?denies.?Murmur/Palpitations?denies.?Gastrointestinal:?Hemorrhoids?denies.?Stomach/Abdominal pain?denies.?Dark blood stool?denies.?Irritable bowel ?denies.?Constipation?denies.?Diarrhea?denies.?Vomiting?denies.?Hematology:?Swelling?admits.?Bruising?denies.?Bleeding problem?denies.?Genitourinary:?Blood urine?denies.?Frequent/Painfu/urination/bladder control?denies.?Kidney stones?denies.?Infection (UTI)?denies.?Nephropathy?denies.?Musculoskeletal:?Hammertoes?denies.?Bunions?denies.?Scoliosis/kyphosis?denies.?Muscle cramps / walking?denies.?Generalized aches and pains?denies.?Weakness?denies.?Integ.:?Morris?denies.?Scars?denies.?Corns/calluses?denies.?Ingrown nails?denies.?Painful nails?,admits.?Rashes?denies.?Neurologic:?Difficulty sleeping?denies.?Bipolar?denies.?Brain disorder?denies.?Balance t rouble?denies.?Confusion?denies.?Fainting/blackouts?denies.?Headache?denies.?Johan mors?denies.? * Medical History:? * Surgical History:?hernia latesha d bypass 03/2023 * Hospitalization/Major Diagno stic Procedure:?[facility], 3 days, CT, atrial flutter 06/2014[facility]- quad [facility] blood loss from ulcer 03/2023 * Family History:?Mother: dece ased.?Father: , diagnosed with Unspecified essential hypertension.?Siblings: .? * Social History:?Tobacco Use:?Tobacco Use/Smoking?Are you a:?nonsmoker ?Additional Findings: Tobacco Non-User?Current non-smoker ?Tobacco use other than smoking?Are you an other tobacco user??No ???Drugs/Alcohol:?Drugs?Have you used drugs other than those for medical reasons in the past 12 months??No ?Alcohol Screen?Did you have a drink containing alcohol in the past year??No ?Points?0 ?Interpretation?Negative ???Miscellaneous:?Caffeine: yes, 2-3 cups per day. ?Children: yes, 4. ?Exercise: yes, gardening/yard work, walking dog, in summer swimming. ?Marital status: . 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 * Medications:?TakingIsosorbid e Dinitrate 30 MG Tablet 1 tablet Orally Twice a day Pantoprazole Sodium 40 MG Tablet Delayed Release 1 tablet 1/2 to 1 hour before morning meal Orally Once a day amLODIPine Besylate 10 MG Tablet 1 tablet Orally Once a day at supper Apixaban 5 MG Tablet as directed Orally Atorvastatin Calcium 20 MG Tablet 1 tablet [...] MG/0.5ML Solution Pen-injector as directed Subcutaneous Taking Isosorbide Dinitrate 30 MG Tablet 1 tablet Orally Twice a day Taking Pantoprazole Sodium 40 MG Tablet Delayed Release 1 tablet 1/2 to 1 hour before morning meal Orally Once a day Taking amLODIPine Besylate 10 MG Tablet 1 tablet Orally Once a day at supper Taking Apixaban 5 MG Tablet as directed Orally Taking Atorvastatin Calcium 20 MG Tablet 1 [...] 0.75 MG/0.5ML Solution Pen-injector as directed Subcutaneous Not- Taking/PRNCiclopirox Olamine 0.77 % Cream 1 application Externally [...] List reviewed and reconciled with the patientNot-Taking/PRN Ciclopirox Olamine 0.77 % Cream 1 application [...] and reconciled with the patient * Allergies:?Flonase: rapid bhumi wilson[Allergies Verified] Objective: * Vitals:?Ht: 5ft 11in, Wt:187 , BMI:26.08, Shoe size: 11.5, BP:128/73mm Hg, BS: 155, Ht-cm: 180.34 cm, Wt-k.82 kg. * Examination: ???Ophthalmology Referral: ?DIABETES EYE EXAM?Procedure Performed:?Yes ?Date of Exam Performed?07/04/2023 ?Diabetic Retinopathy Screening:?Yes ?Findings of Diabetic Eye Exam:?no retinopathy?General Examination: ?GENERAL APPEARANCE:?Reveals a pleasant, alert, well nourished, well- developed, well hydrated individual, who demonstrates proper attention to hygiene/body habitus, and is in no acute distress, Pt serves as own historian for office visit today.?ORIENTED:?person, place, and time.?FOOT EXAM:?Lower Extremity Neurological Exam performed:?Yes ?Visual exam of foot performed:?Yes ?Date?01/30/2024 ?Sensory testing performed:?sensations diminished ?Sensory and motor [...] no pain on palpation due to neuropathy, 2-5 B/L.?Dermatologic: ?SKIN FINDINGS:?Skin exam reveals keratotic lesion(s) located at, TA, T5, Medial plantar , Skin shows sign(s) of, erythema, scaling, in a moccasin fashion, no fissure(s) present, B/L.?Orthopedic: ?FOOTWEAR:?Non-Diabetic with no OT.? Assessment: * Assessment: 1.?Type 2 diabetes mellitus with diabetic polyneuropathy - E11.42 (Primary)???2.?Tinea unguium - B35.1???3.?Tinea pedis of both feet - B35.3???Specify :Acute problem, Uncomplicated (3),Rx drug management (4)??? Plan: * Treatment: 2.?Tinea unguium?Procedure: 85845-EEGHQHB NAIL, 6 OR MORE 3.?Tinea pedis of both feet? Start Ciclopirox Olamine Cream, 0.77 %, 1 application, Externally, Twice a day to skin of feet including between the toes, 30 days, 60, Refills 2.?? * Procedures:?Debride Nail 6-10:?Nail debridement?Performance of this nail treatment by a nonprofessional would put this patients foot and overall health at risk. Therefore, nail debridement was performed extensively to reduce/remove overall nail length, girth, thickness, subungual debris, and necrotic tissue, by manual and/or electrical means through the use of a nail nipper and/or dremel-type computer numerical control grinder, to a more viable healthy nail plate or bed tissue 6-10. Silver nitrate used for any petechial bleeding as necessary. Definitive antifungal treatment options have been reviewed and discussed with the patient. The patient chooses, no pharmaceutical tx - 51376.?Keratoma Treatment:?Parring or Cutting of Benign Hyperkeratotic Lesion(s)?95362 (2-4 Lesions) - The Benign hyperkeratotic lesions, as described above were pared, and/or cut utilizing a sterile #15 blade, tissue nippers, and/or dremel.? * Procedure Codes:?60481 DEBRI DE NAIL, 6 OR MORE, Modifiers: XS 36158 TRIM SKIN LESIONS, 2 TO 4, Modifiers: XS * Preventive Medicine:? ??Counseling:?Discussion:?-13: Office or other outpatient visit for the evaluation and management of an established patient, which required a medically appropriate history and/or examination and LOW level of DECISION MAKING for: 1 STABLE ACUTE UNCOMPLICATED PROBLEM, 2 OR MORE MINOR PROBLEMS, OR 1 STABLE CHRONIC PROBLEM, THAT POSE(S) A LOW RISK FOR MORBIDITY/MORTALITY. The visit on the day of the [...] have encouraged the patient to call the office.?Shoe Gear Counseling:?The patient deferred recommended diabetic shoes with heat moled inserts.?Tinea Pedis:?The patient was counseled on the diagnosis, potential etiologies, and treatment options for their skin condition. We discussed the risks and benefits of each option from performing no treatment, to utilizing OTC topical skin creams, prescription topical creams, customized compounded topical medications, and, if necessary, to utilize oral antifungal therapy. We discussed the advantages and disadvantages of each possible treatment and importance for adherence to all the recommended therapies for optimum success and avoid potential complications such as open sore/infection/possible hospitalization. We discussed the potential effectiveness of each topical preparation as well as each ones possible side effects and/or patient medication interactions if oral therapy is selected. Patient questions re: the advantages and disadvantages of each treatment choice, medication use/dosage, successful outcomes, and application consistency were reviewed and the patient verbalized that all answers were clearly understood. The patient was told they can help alleviate symptoms by utilizing moisture absorbant innersoles with activated charcoal and baking soda, applying antifungal sprays daily, aerating toe web spaces at night by putting cotton or lambs wool between the toes, alternating shoe gear daily if possible so they can dry out, changing socks at least once during the day, wearing well-ventilated shoes or sandals. The patient has decided to apply antifungal skin creams to their feet as directed. Rx was sent to their pharmacy at the time of visit.? * Follow Up:?prn * Images: * Sign off status: Completed true * Provider:?Whitney Armendariz DPM Date:?2023 Generated for Jose coles/Avelino/Maggieitting on:?08/06/2024 05:31 PM EDT History and Physical Notes * HPI (History of Present Illness) Category Sub-Category Detail Notes Category Not es Skin problems Nature: scaling , redness Location: B/L Duration: several days Course: worse At Risk footcare Pt States Last PCP [...] s keratotic lesion(s) located at, TA, T5, Medial plantar , Skin shows sign(s) of, erythema, scaling, in a moccasin fashion, no fissure(s) present, B/L Orthopedic FOOTWEAR EVALUATION: Non-Diabetic with no OT General Examination GENERAL APPEARANCE: Reveals a pleasant, alert, well nourished, well-developed, well hydrated individual, who demonstrates proper attention to hygiene/body habitus, and is in no acute distress, Pt serves as own historian for office visit today FOOT EXAM: Lower Extremity Neurological Exa m performed:: Yes Visual exam of foot performed:: Yes Date: 01/30/2024 Sensory testing performed:: sensations d iminished Sensory and motor testing performed:: se nsations diminished Pedal pulse taking performed:: 2+ ORIENTED: person, place, and t elizabeth Footwear Evaluation Footwear Evaluation performe d:: Yes Ophthalmology Referral DIABETES EYE EXAM Procedure Perform ed:: Yes ?Date of Exam Performed: 07/04/2023 Diabetic Retinopathy Screening:: Yes Findings of Diabetic Eye Exam:: no retin opathy Vascular DP PULSES (B): 2/4, B/L PT [...] no pain on palpation due to neuropathy, 2-5 B/L
--- OUTSIDE RECORDS SUMMARY | 2024-08-06 17:31 | XMS_ITS | Encounter Summary ---
Author Organization [facility] Address [address] [place] [address] Care Team Providers Care Road Equipment Operator Name Role Phone Nakia Tom MD Primary Care Prov ider Ronnie Sahu MD Unavailable [phone] Black, Whitney Unavailable Unavailable Panda Munguia Unavailable Unavailable Rich Mera MD Unavailable Caitie Talbot Unavailable Unavailable Angel Nixon MD Unavailable Unavailable Encounter Details Date Type Department Care Team Description 12/06/2022 Hospital Medical Records [address] [place] [id number] Social History Tobacco Use Types Packs/Day Years [...] on filedocumented in this encounter Care Teams Road Equipment Operator Relationship Specialty Start Date End Date Nakia Tom MD [address] [place] [address] [phone] PCP - General Internal Medicine 12/18/21 Ronnie Sahu MD [address] [place] [address] [phone] Specialist Nephrology 05/07/22 Whitney Armendariz [address] [place] [address] Specialist Podiatry 05/07/22 Panda Munguia [address] [place] [address] Specialist Thoracic Surgery 12/18/22 Rich Mera MD [address] [place] [address] Specialist Cardiology 12/27/22 Caitie Gross [address] [place] [address] Specialist Ophthalmology 12/27/22 Angel Nixon MD [address] [place] [address] Specialist Pulmonology 12/27/22 documented as of this encounter
--- OUTSIDE RECORDS SUMMARY | 2024-08-06 17:31 | XMS_ITS | Encounter Summary ---
Author Organization [facility] [place] Address [address] [place] [address] Care Team Providers Care Physician Representative Name Role Phone Nakia Tom MD Primary Care Prov ider Ronnie Sahu MD Unavailable [phone] Black, Whitney Unavailable Unavailable Sandy Munguiavash Unavailable Unavailable Rich Mera MD Unavailable Caitie Talbot Unavailable Unavailable Angel Nixon MD Unavailable Unavailable Encounter Details Date Type Department Care Team Description 03/11/2023 Auger Machine Offbearer Report Medical Records [address] [place] [phone] Rich Mera MD Social History Tobacco Use [...] on filedocumented in this encounter Care Teams Physician Representative Relationship Specialty Start Date End Date Nakia Tom MD [address] [place] [address] PCP - General Internal Medicine 12/18/21 Ronnie Sahu MD [address] [place] [address] Specialist Nephrology 05/07/22 Whitney Armendariz [address] [place], [place] [phone] Specialist Podiatry 05/07/22 Panda Munguia [address] [place], [place] [phone] Specialist Thoracic Surgery 12/18/22 Rich Mera MD [address] [place] [address] Specialist Cardiology 12/27/22 Caitie Gross [address] [place], [place] [phone] Specialist Ophthalmology 12/27/22 Angel Nixon MD [address] [place] [address] Specialist Pulmonology 12/27/22 documented as of this encounter
--- OUTSIDE RECORDS SUMMARY | 2024-08-06 17:31 | XMS_ITS | Encounter Summary ---
Author Organization [facility] Address [address] [place] [address] Care Team Providers Care Train System Operator Name Role Phone Nakia Tom MD Primary Care Prov ider Ronnie Sahu MD Unavailable [phone] Black, Whitney Unavailable Unavailable Panda Munguia Unavailable Unavailable Rich Mera MD Unavailable Caitie Talbot Unavailable Unavailable Angel Nixon MD Unavailable Unavailable Encounter Details Date Type Department Care Team Description 12/07/2022 Hospital Medical Records [address] [place] [phone] Social History Tobacco Use Types Packs/Day Years [...] on filedocumented in this encounter Care Teams Train System Operator Relationship Specialty Start Date End Date Nakia Tom MD [address] [place] [address] [phone] PCP - General Internal Medicine 12/18/21 Ronnie Sahu MD [address] [place] [address] [phone] Specialist Nephrology 05/07/22 Whitney Armendariz [address] [place] [address] Specialist Podiatry 05/07/22 Panda Munguia [address] [place] [phone] Specialist Thoracic Surgery 12/18/22 Rich Mera MD [address] [place] [address] Specialist Cardiology 12/27/22 Caitie Gross [address] [place] [address] Specialist Ophthalmology 12/27/22 Angel Nixon MD [address] [place] [phone] Specialist Pulmonology 12/27/22 documented as of this encounter
--- OUTSIDE RECORDS SUMMARY | 2024-08-06 17:31 | XMS_ITS | Encounter Summary ---
Author Organization [facility] Address [address] [place] [address] Care Team Providers Care Coil Winder Name Role Phone Nakia Tom MD Primary Care Prov ider Ronnie Sahu MD Unavailable [phone] Black, Whitney Unavailable Unavailable Panda Munguia Unavailable Unavailable Rich Mera MD Unavailable Caitie Talbot Unavailable Unavailable Angel Nixon MD Unavailable Unavailable Encounter Details Date Type Department Care Team Description 06/18/2022 Tumbling And Rolling Supervisor Report Medical Records [address] [place] [address] Angel Nixon MD Social History Tobacco Use [...] on filedocumented in this encounter Care Teams Coil Winder Relationship Specialty Start Date End Date Nakia Tom MD [address] [place] [phone] PCP - General Internal Medicine 12/18/21 Ronnie Sahu MD [address] [place] [phone] Specialist Nephrology 05/07/22 Whitney Armendariz [address] [place] [phone] Specialist Podiatry 05/07/22 Panda Munguia [address] [place] [phone] Specialist Thoracic Surgery 12/18/22 Rich Mera MD [address] [place] [address] Specialist Cardiology 12/27/22 Caitie Gross [address] [place] [address] Specialist Ophthalmology 12/27/22 Angel Nixon MD [address] [place] [address] Specialist Pulmonology 12/27/22 documented as of this encounter
--- OUTSIDE RECORDS SUMMARY | 2024-08-06 17:31 | XMS_ITS | Clinical Summary ---
Author Organization [facility] [address] [place] [address] [place] [phone] Phone Care Team Providers Care Chief Technologist Name Role Phone Nakia Martínez MD Primary Care Prov ider Allergies Active Allergy Reactions Criticality Noted Date Comments Fluticasone Propionate Flushing 10/09/2010 Lisinopril Other 09/14/2009 Medications amLODIPine (NORVASC) 2.5 mg tablet Take 1 Tablet by mouth. 4 Active losartan (COZAAR) 25 mg tablet Take 1 tablet (25 mg total) by mouth 1 (one) time each day. 4 Active metoprolol tartrate (LOPRESSOR) 50 mg tablet Take 1 tablet (50 mg total) by mouth 2 (two) times a day. 4 Active apixaban (Eliquis) 5 mg tablet Take 1 tablet (5 mg total) by mouth 2 (two) times a day. 4 Active pantoprazole (PROTONIX) 40 mg EC tablet Take 1 tablet (40 mg total) by mouth 2 (two) times a day. 3 Active OneTouch Ultra Test test strip USE TO TEST BLOOD SUGAR 1 TO 2 TIMES A DAY 2 Active lancets 33 gauge misc Apply 1 Each topically daily. 2 Active omega-3 acid ethyl esters (LOVAZA) 1 gram capsule Take by mouth. Activ e Trulicity 0.75 mg/0.5 mL pen injector injection ADMINISTER 0.75 MG UNDER THE SKIN EVERY 7 DAYS 6 mL 1 4 Active atorvastatin (LIPITOR) 40 mg tablet TAKE 1 TABLET BY MOUTH DAILY 90 tablet 1 4 Active metFORMIN (GLUCOPHAGE) 500 mg tablet TAKE 2 TABLETS BY MOUTH TWICE DAILY WITH MEALS 360 tablet 5 Active levothyroxine (SYNTHROID, LEVOTHROID) 88 mcg tablet TAKE 1 TABLET BY MOUTH DAILY 90 tablet 1 5 Active isosorbide mononitrate (IMDUR) 30 mg 24 hr tablet Take 1 tablet (30 mg total) by mouth. Active aspirin 81 mg EC tablet Take 1 Tablet by mouth. 3 07/25/19 25 Discontin ued(Thera py completed ) Active Problems Problem Noted Date Diagnosed Date Presence of aortocoronary bypass graft 3 Stage 3a chronic kidney disease ([facility] V24, CM S/HCC V28) 05/07/2022 Overview (01/28/2024): HTN Peripheral neuropathy 12/27/2020 Tinea unguium 12/27/2020 Simple cyst of kidney 07/16/2019 Overview (01/28/2024): Followed by urology (Dr. York) Ascending aorta dilatation ([facility] V24) 019 Overview (01/28/2024): CT chest 05/29/18 - 4.1 cm at level of main pulm artery Pulmonary nodules 09/03/2017 Overview (01/28/2024): CT 05/29/18: 2 mm peripheral pulmonary nodule [...] unchanged. Rec rpt 1 year. Atrial flutter (CMS/HCC V24, [facility] V28) 2014 Overview (01/28/2024): Dr Mera Assessment & Plan (07/24/2024 1:15 PM EDT): Preglaucoma 10/05/2013 Overview (01/28/2024): Dr Chapman note 09/21/2003 Hyperuricemia 02/02/2013 DM (diabetes mellitus), type 2 with peripheral vascular complications ([facility] V24, [facility] V28) 07/17/2012 Assessment & Plan (07/24/2024 11:15 AM EDT): Orders: Hemoglobin A1c; Future Subclinical hypothyroidism 03/23/2010 Overview (01/28/2024): TSH 14.39 02/2010, on Lt-4 replacement therapy Assessment & Plan (07/24/2024 11:15 AM EDT): Orders: Thyroid stimulating hormone; Future Erectile dysfunction 09/04/2008 Overview (01/28/2024): Followed by urology in the past Nephrolithiasis 03/27/2007 Diabetes mellitus with neuro logical manifestations ([facility] V24, [facility] V28) 07/24/2005 Overview (01/28/2024): Sees private detective Dr. Armendariz (last visit 07/13/13) Essential hypertension, benign 07/24/2005 Assessment & Plan (07/24/2024 1:15 PM EDT): Hyperlipidemia 07/24/2005 Assessment & Plan (07/24/2024 1:15 PM EDT): Encounters Date Type Department Care Team Description 07/24/2024 11:00 AM EDT Office Visit Adult Medicine [address] [phone] Nakia Salguero MD DM (diabetes mellitus), type 2 with peripheral vascular complications ([facility] V24, [facility] V28) (Primary Dx); Essential hypertension, benign; Mixed hyperlipidemia; Subclinical hypothyroidism; Atrial flutter, unspecified type ([facility] V24, [facility] V28); Screening for depression; Encounter for screening involving social determinants of health (SDoH) from Last 3 Months Immunizations Name Administration Dates Next Due H1N1 Inj Preservative Free 03/28/2009 Influenza trivalent, 0.5mL ( Fluzone High-dose) 65yo and older 02/01/2022,01/23/2021,01/18/2020,03/08,01/06/2018,06/17/2016 Influenza trivalent, with pr eservative (Fluzone; Afluria) 6mo and older 02/04/2020,12/22/2018,12/27/2017,02/20,02/10/2016,03/09/2014,02/02/2013 ,04/08/2012,03/06/2011,02/27/2010,10/2008,03/05/2008,03/27/2007, 6 Pfizer SARS-CoV-2 COVID-19, mRNA, LNP-S, preservative free 02/14/2021 Pneumococcal conjugate 13 va lent (Prevnar 13, PCV13) 2mo and older 05/06/2017 Pneumococcal polysaccharide 23 valent (Pneumovax 23) 2yo and older 12/14/2014,03/27/2007 Td Tetanus diptheria (Tdvax) 7yo and older 12/29/2001 Td, Unspecified 12/29/2001 Tdap Tetanus diptheria acell ular pertussis (Boostrix; Adacel) 7yo and older 11/05/2023,04/08/2012 Zoster Live 08/26/2012 Surgical History Surgery Date Site/Laterality Comments HERNIA REPAIR 8-9 y/o PROCEDURE: HISTORICAL HERNIA REPAIR/ING; COMMENT: right, also orchiopexy COLONOSCOPY 03/19/2000 PROCEDURE: HISTORICAL COLONOSCOPY; COMMENT: neg to mid transverse, sent for BE. COLONOSCOPY 04/23/2011 PROCEDURE: UT COLONOSCOPY FLX DX W/COLLJ SPEC WHEN PFRMD; COMMENT: normal to the cecum CORONARY ARTERY BYPASS GRAFT 11/24/2022 PROCEDURE: HISTORICAL CABG; COMMENT: Dr. Ramos, [facility] Bypass Medical History Medical History Date Comments Nephrolithiasis 03/27/2007 DX:Nephrolithias is Diabetes mellitus type II, c ontrolled ([facility] [place], [facility] [place]) 07/24/2005 DX:Diabetes mellitus type I I, controlled ([facility]) Essential hypertension, benign 07/24/2005 D X:Essential hypertension, benign Hypothyroidism 03/23/2010 DX:Hypothyroidis m Pulmonary nodules 09/03/2017 DX:Pulmonary n odules DM (diabetes mellitus), type 2 with peripheral vascular complications ([facility] [place], [facility] V28) 07/17/2012 DX:DM (diabetes mellitus), type 2 with peripheral vascular complications ([facility]); COMMENT: Erectile dysfunction. Peripheral neuropathy 12/27/2020 DX:Periphe ral neuropathy Tinea unguium 12/27/2020 DX:Tinea unguium Family History Medical History Relation Name Comments Blindness Neg Hx Cataracts Neg Hx Glaucoma Neg Hx Macular degeneration Neg Hx Strabismus Neg Hx Relation Name Status Comments Brother Alive 4 brothers Daughter 1 Alive Daughter 2 Alive Father CAD, DM Mother (Age 74) brain aneu rysm Sister Alive 3 sisters Son 1 Alive Son 2 Alive Social History Tobacco Use Types Packs/Day Years Used Date Smoking Tobacco: Former Cigarettes 2 33 0 04/22/1963 - 04/22/1996 Smokeless Tobacco: Never Alcohol Use Standard Drinks/Week Comments No 0 (1 standard drink = 0.6 oz pur e alcohol) Housing Instability Answer Date Recorde d Are you worried that in the next 2 months you may not have stable housing? No 07/23/2024 Food Access & Nutrition Answer Date Rec orded Do you have access to a vari ety of food including fruits and vegetables? Yes 07/23/2024 Access to Healthcare Answer Date Record ed Within the last 3 months, ho w many times did you visit the emergency department for your medical care? 0 07/23/2024 Health Literacy Answer Date Recorded How often do you need to hav e someone help you when you read instructions, pamphlets, or other written material from your doctor or pharmacy? Never 07/23/2024 Caregiver: How often do you need to have someone help you when you read instructions, pamphlets, or other written material from your doctor or pharmacy? Not on file 07/23/2024 Financial Risk Answer Date Recorded How hard is it for you to pa y for the very basics like food, housing, medical care, and air conditioning / heating? Patient declined 07/23/2024 Transportation Answer Date Recorded Has the lack of transportati on kept you from meetings, work, or from getting things needed for daily living? No Has the lack of transportati on kept you from medical appointments or from getting medications? No 07/23/2024 Social Isolation Answer Date Recorded How often do you feel lonely or isolated from th ose around you? Never 07/23/2024 Food Risk Answer Date Recorded Within the past 12 months we worried whether our food would run out before we got money to buy more. Never true 07/23/2024 Within the past 12 months th e food we bought just didn't last and we didn't have money to get more. Never true 07/23/2024 Dependent Care Answer Date Recorded Do you need help finding or paying for care for your loved ones. For example, residential child care counselor or elderly care for an older adult? No 07/23/2024 Education Answer Date Recorded Do you think completing more education or training, like finishing a GED, going to college, or learning a trade, would be helpful for you? No 07/23/2024 Employment and Income Answer Date Recor ded During the last four weeks, have you been actively looking for work? No 07/23/2024 Living Situation Answer Date Recorded What is your living situation? 0 07/23/2024 Sex and Gender Information Value Date Recorded Sex Assigned at Not on file Legal Sex Male 3:31 AM EST Gender Identity Not on file Sexual Orientation Not on file Obstetrics History Last Filed Vital Signs Vital Sign Reading Time Taken Comments Blood Pressure 150/60 07/24/2024 11:13 AM EDT Pulse 59 07/24/2024 10:58 AM EDT Temperature 35.9 ??C (96.7 ??F) 07/24/2024 1 0:58 AM EDT Respiratory Rate 14 07/24/2024 10:5 8 AM EDT Oxygen Saturation - - Inhaled Oxygen Concentration - - Weight 92.4 kg (203 lb 12.8 oz) 025 10:58 AM EDT Height 182.9 cm (6') 07/24/2024 10:58 AM EDT Body Mass Index 27.64 07/24/2024 10:58 AM EDT Plan of Treatment Upcoming Encounters Date Type Department Care Team (Late st Contact Info) Description 01/26/2025 11:00 AM EDT Office Visit Adult Medicine [facility] [address] [place] [phone] Nakia Martínez MD [address] [place] [id number] Health Maintenance Due Date Last Done Comments Colorectal Cancer Screening: FIT-DNA (Cologuard) 03/31/2022 Medicare Annual Wellness Visit 03/31/2022 COVID-19 Vaccine ( season) 2023 03/07/2023, 02/23/2022, 02/14/2021, Additional history exists Diabetes: Blood Sugar Control Test (HGBA1C) 11/24/2024 05/27/2024, 10/28/2023, 10/28/2023 Influenza Vaccine (Season Ended) 2024 03/07/2023, 02/01/2022, 01/23/2021, Additional history exists Diabetes: Annual Foot Exam 01/29/2025 01/30/2024 Diabetes: Annual Retina Eye Exam 04/25/2025 04/25/2024 Diabetes: Annual Urine Albumin-Creatinine Ratio (uACR) 05/27/2025 05/27/2024, 08/13/2023 Diabetes: Annual GFR (Glomerular Filtration Rate) 05/27/2025 05/27/2024, 10/28/2023, 10/28/2023 Hypertension/CHF/CAD Annual BMP Blood Test 05/27/2025 05/27/2024, 10/28/2023, 10/28/2023 Depression Screening 07/23/2025 07/23/2024 Social Influencers of Health Screening 07/23/2025 07/23/2024 Falls Risk Assessment 07/24/2025 07/24/2024 Cholesterol Screening (Lipid Panel) 05/27/2029 05/27/2024, 10/28/2023, 10/28/2023 DTaP,Tdap,and Td Vaccines (5 - Td or Tdap) 11/04/2033 11/05/2023, 04/08/2012, 12/29/2001, Additional history exists Hepatitis C Screening Completed 04/26/2013 Pneumococcal Vaccine: 50+ Years Completed 05/06/2017, 12/14/2014, 03/27/2007 Abdominal Aortic Aneurysm (AAA) Screen Completed 05/15/2017, 05/15/2017 Zoster Vaccines Completed 07/29/2023, 04/22, 08/26/2012 RSV Immunization Adult Patients Completed 08/15/2023 HIB Vaccines Aged Out No longer eligi ble based on patient's age to complete this topic HPV Vaccines Aged Out No longer eligi ble based on patient's age to complete this topic Hepatitis A Vaccines Aged Out No long er eligible based on patient's age to complete this topic Hepatitis B Vaccines Aged Out No long er eligible based on patient's age to complete this topic IPV Vaccines Aged Out No longer eligi ble based on patient's age to complete this topic MMR Vaccines Aged Out No longer eligi ble based on patient's age to complete this topic Meningococcal ACWY Vaccine Aged Out N o longer eligible based on patient's age to complete this topic Meningococcal B Vaccine Aged Out No l onger eligible based on patient's age to complete this topic RSV Immunization Patients Under 20 months Aged Out No longer eligible based on patient's age to complete this topic Varicella Vaccines Aged Out No longer eligible based on patient's age to complete this topic Procedures Procedure Name Priority Date/Time Associated Diagnosis Comments PHOSPHORUS Routine 05/27/2024 2:50 PM EST Diabetes mellitus with neurological manifestations ([facility] V24, [facility] V28) Atrial flutter, unspecified type ([facility] V24, [facility] V28) Essential hypertension, benign DM (diabetes mellitus), type 2 with peripheral vascular complications ([facility] V24, [facility] V28) Simple cyst of kidney Hyperlipidemia, unspecified hyperlipidemia type Hyperuricemia Subclinical hypothyroidism Other acute kidney failure ([facility] V24) Type 2 diabetes mellitus with stage 1 chronic kidney disease ([facility] V24, [facility] V28) URINALYSIS MICROSCOPIC ONLY Routine 05/27/2024 2:50 PM EST Diabetes mellitus with neurological manifestations (CMS/HCC V24, CMS/HCC V28) Atrial flutter, unspecified type (CMS/HCC V24, CMS/HCC V28) Essential hypertension, benign DM (diabetes mellitus), type 2 with peripheral vascular complications (CMS/HCC V24, CMS/HCC V28) Simple cyst of kidney Hyperlipidemia, unspecified hyperlipidemia type Hyperuricemia Subclinical hypothyroidism Other acute kidney failure (CMS/HCC V24) Type 2 diabetes mellitus with stage 1 chronic kidney disease (CMS/HCC V24, CMS/HCC V28) URINALYSIS MICROSCOPIC ONLY Routine 05/27/2024 2:50 PM EST Diabetes mellitus with neurological manifestations (CMS/HCC V24, CMS/HCC V28) Atrial flutter, unspecified type (CMS/HCC V24, CMS/HCC V28) Essential hypertension, benign DM (diabetes mellitus), type 2 with peripheral vascular complications (CMS/HCC V24, CMS/HCC V28) Simple cyst of kidney Hyperlipidemia, unspecified hyperlipidemia type Hyperuricemia Subclinical hypothyroidism Other acute kidney failure (CMS/HCC V24) Type 2 diabetes mellitus with stage 1 chronic kidney disease (CMS/HCC V24, CMS/HCC V28) MICROALBUMIN CREATININE URINE RATIO Routine 05/27/2024 2:50 PM EST Diabetes mellitus with neurological manifestations (CMS/HCC V24, CMS/HCC V28) Atrial flutter, unspecified type (CMS/HCC V24, CMS/HCC V28) Essential hypertension, benign DM (diabetes mellitus), type 2 with peripheral vascular complications (CMS/HCC V24, CMS/HCC V28) Simple cyst of kidney Hyperlipidemia, unspecified hyperlipidemia type Hyperuricemia Subclinical hypothyroidism HEMOGLOBIN A1C Routine 05/27/2024 2:50 PM EST Diabetes mellitus with neurological manifestations (CMS/HCC V24, CMS/HCC V28) Atrial flutter, unspecified type (CMS/HCC V24, CMS/HCC V28) Essential hypertension, benign DM (diabetes mellitus), type 2 with peripheral vascular complications (CMS/HCC V24, CMS/HCC V28) Simple cyst of kidney Hyperlipidemia, unspecified hyperlipidemia type Hyperuricemia Subclinical hypothyroidism LIPID PANEL WITH REFLEX TO DIRECT LDL Routine 05/27/2024 2:50 PM EST Diabetes mellitus with neurological manifestations (CMS/HCC V24, CMS/HCC V28) Atrial flutter, unspecified type (CMS/HCC V24, CMS/HCC V28) Essential hypertension, benign DM (diabetes mellitus), type 2 with peripheral vascular complications (CMS/HCC V24, CMS/HCC V28) Simple cyst of kidney Hyperlipidemia, unspecified hyperlipidemia type Hyperuricemia Subclinical hypothyroidism COMPREHENSIVE METABOLIC PANEL Routine 05/27/2024 2:50 PM EST Diabetes mellitus with neurological manifestations (CMS/HCC V24, CMS/HCC V28) Atrial flutter, unspecified type (CMS/HCC V24, CMS/HCC V28) Essential hypertension, benign DM (diabetes mellitus), type 2 with peripheral vascular complications (CMS/HCC V24, CMS/HCC V28) Simple cyst of kidney Hyperlipidemia, unspecified hyperlipidemia type Hyperuricemia Subclinical hypothyroidism US ABDOMINAL AORTA REAL TIME SCREEN STUDY AAA Routine 05/15/2017 8:13 AM EST Encounter for screening for cardiovascular disorders HEPATITIS C SCREENING Routine 04/26/2013 from Last 3 Months or Most Recently Relevant to Health Maintenance Results * Urinalysis microscopic only (05/27/2024 2:50 PM EST) RBC, Urine 2.7 0 - 4 /HPF LAB URINALYSIS - AUTOMATED METHOD 05/27/2024 4:28 PM [facility] WBC, Urine 1.4 0 - 4 /HPF LAB URINALYSIS - AUTOMATED METHOD 05/27/2024 4:28 PM [facility] Squamous Epithelial, Urine 19 0 - 60 /LPF LAB URINALYSIS - AUTOMATED METHOD 05/27/2024 4:28 PM [facility] Bacteria, Urine Negative Negative /HPF LAB URINALYSIS - AUTOMATED METHOD 05/27/2024 4:28 PM [facility] Hyaline Casts, Urine 1.6 0 - 3 /LPF LAB URINALYSIS - AUTOMATED METHOD 05/27/2024 4:28 PM [facility] Urine Urine specimen obtained by clean catch procedure / Unknown Non-blood Collection / Unknown 05/27/2024 2:50 PM EST 05/27/2024 2:50 PM EST Ronnie Sahu MD LAB URINE ORDERABLES Final Resu lt [facility] [address] [place] [address], [place] [phone] * (ABNORMAL) Lipid panel with reflex to direct LDL (05/27/2024 2:50 PM EST) Cholesterol 102 0 - 200 mg/dL LAB CHEMISTRY METHOD 05/27/2024 7:28 PM [facility] Triglycerides 169(H) 0 - 150 mg/dL LAB CHEMISTRY METHOD 05/27/2024 7:28 PM [facility] HDL 26(L) >=40 mg/dL LAB CHEMISTRY METHOD 05/27/2024 7:28 PM [facility] LDL Calculated 42 0 - 100 mg/dL LAB CHEMISTRY METHOD 05/27/2024 7:28 PM [facility] VLDL Cholesterol Jonah 33.8 mg/dL LAB CHEMISTRY METHOD 05/27/2024 7:28 PM [facility] Non HDL Chol. (LDL+VLDL) 76 <145 mg/dL LAB CHEMISTRY METHOD 05/27/2024 7:28 PM [facility] Chol/HDL Ratio 3.9 0.0 - 4.4 LAB CHEMISTRY METHOD 05/27/2024 7:28 PM [facility] Blood Venous blood specimen / Unknown Venipuncture / Unknown 05/27/2024 2:50 PM EST 05/27/2024 2:50 PM EST Chely DARLING LAB BLOOD ORDERABLES Final Resu lt Performing Organization Address [facility]/ZIP Co de Phone Number [facility] [address] [place] [address], [place] [phone] * (ABNORMAL) Microalbumin creatinine urine ratio (05/27/2024 2:50 PM EST) Creatinine, Urine 172.0 mg/dL LAB CHEMISTRY METHOD 05/27/2024 7:54 PM EST [facility] Microalb, Ur 543.0(H) 0.0 - 29.0 mg/L LAB CHEMISTRY METHOD 05/27/2024 7:54 PM EST [facility] Comment:Results verified by repeat testing Microalb/Crea t Ratio 316(H) <30 mg/g creat LAB CHEMISTRY METHOD 05/27/2024 7:54 PM EST [facility] Urine Urine specimen obtained by clean catch procedure / Unknown Non-blood Collection / Unknown 05/27/2024 2:50 PM EST 05/27/2024 2:50 PM EST Chely DARLING LAB URINE ORDERABLES Final Resu lt Performing Organization Address [facility] Co de Phone Number [facility] [address] [place] [address], [place] [phone] * Phosphorus (05/27/2024 2:50 PM EST) Phosphorus 3.7 2.5 - 4.5 mg/dL LAB CHEMISTRY METHOD 05/27/2024 7:28 PM EST [facility] Blood Venous blood specimen / Unknown Venipuncture / Unknown 05/27/2024 2:50 PM EST 05/27/2024 2:50 PM EST Ronnie Sahu MD LAB BLOOD ORDERABLES Final Resu lt Performing Organization Address City/[facility]/ZIP Co de Phone Number [facility] [address] [place] [address], [place] [phone] * (ABNORMAL) Hemoglobin A1c (05/27/2024 2:50 PM EST) Pathologist [facility] Hemoglobin A1C 6.5(H) <6.5 % LAB CHEMISTRY METHOD 05/27/2024 7:08 PM EST [facility] Mean Bld Glu Estim. 140 mg/dL LAB CHEMISTRY METHOD 05/27/2024 7:08 PM [facility] Blood Venous blood specimen / Unknown Venipuncture / Unknown 05/27/2024 2:50 PM EST 05/27/2024 2:50 PM EST Chely DARLING LAB BLOOD ORDERABLES Final Resu lt [facility] [address] [place] [address], [place] [phone] * (ABNORMAL) Comprehensive metabolic panel (05/27/2024 2:50 PM EST) [facility] Sodium 138 133 - 145 mmol/L LAB CHEMISTRY METHOD 05/27/2024 7:28 PM [facility] Potassium 4.2 3.5 - 5.5 mmol/L LAB CHEMISTRY METHOD 05/27/2024 7:28 PM [facility] Chloride 104 96 - 110 mmol/L LAB CHEMISTRY METHOD 05/27/2024 7:28 PM [facility] CO2 24 21 - 32 mmol/L LAB CHEMISTRY METHOD 05/27/2024 7:28 PM [facility] Anion Gap 10 3 - 11 LAB CHEMISTRY METHOD 05/27/2024 7:28 PM [facility] Glucose 204(H) 70 - 100 mg/dL LAB CHEMISTRY METHOD 05/27/2024 7:28 PM [facility] BUN 32(H) 5 - 25 mg/dL LAB CHEMISTRY METHOD 05/27/2024 7:28 PM [facility] Creatinine 2.13(H) 0.70 - 1.30 mg/dL LAB CHEMISTRY METHOD 05/27/2024 7:28 PM [facility] eGFR 32(L) >=60 mL/min/1. 73m2 LAB CHEMISTRY METHOD 05/27/2024 7:28 PM [facility] Comment:Calculation based on the??Chronic Kidney Disease Epidemiology Collaboration (CKD-EPI) equation refit??without adjustment for race. BUN/Creatinine Ratio 15.0 LAB CHEMISTRY METHOD 05/27/2024 7:28 PM [facility] Calcium 9.7 8.5 - 10.5 mg/dL LAB CHEMISTRY METHOD 05/27/2024 7:28 PM [facility] AST (SGOT) 11 10 - 42 unit/L LAB CHEMISTRY METHOD 05/27/2024 7:28 PM [facility] ALT (SGPT) 17 10 - 60 unit/L LAB CHEMISTRY METHOD 05/27/2024 7:28 PM [facility] Alkaline Phosphatase 78 42 - 121 unit/L LAB CHEMISTRY METHOD 05/27/2024 7:28 PM [facility] Total Protein 7.2 6.0 - 8.0 g/dL LAB CHEMISTRY METHOD 05/27/2024 7:28 PM [facility] Albumin 3.9 3.2 - 5.0 g/dL LAB CHEMISTRY METHOD 05/27/2024 7:28 PM [facility] Total Bilirubin 0.6 0.0 - 1.4 mg/dL LAB CHEMISTRY METHOD 05/27/2024 7:28 PM [facility] Blood Venous blood specimen / Unknown Venipuncture / Unknown 05/27/2024 2:50 PM EST 05/27/2024 2:50 PM EST us Chely DARLING LAB BLOOD ORDERABLES Final Resu lt [facility] [address] [place] [address], * US ABDOMINAL AORTA REAL TIME SCREEN STUDY AAA (05/15/2017 8:13 AM EST) Anatomical Region Laterality Modality Ultrasound 05/06/2017 11:1 8 AM EST Narrative 05/15/2017 10:43 AM EST ULTRASOUND ABDOMINAL AORTA CLINICAL HISTORY: Screening for AAA. COMPARISON: None available. FINDINGS: Limited evaluation of the proximal aorta due to overlying bowel gas. The visualized abdominal aorta is unremarkable appearance and normal in caliber. It measures 2 cm in maximum external-external diameter. The common iliac arteries are normal in caliber. IMPRESSION: IMPRESSION: Limited evaluation of the proximal aorta due to overlying bowel gas. No sonographic evidence of abdominal aortic aneurysm. Procedure Note Emily Donnelly, DO - 05/27/2023 ULTRASOUND ABDOMINAL AORTA CLINICAL HISTORY: Screening for AAA. COMPARISON: None available. FINDINGS: Limited evaluation of the proximal aorta due to overlying bowelgas. The visualized abdominal aorta is unremarkable appearance and normal in caliber. Itmeasures 2 cm in maximum external-external diameter. The common iliac arteries are normal incaliber. IMPRESSION: IMPRESSION: Limited evaluation of the proximal aorta due to overlyingbowel gas. No sonographic evidence of abdominal aortic aneurysm. Chely DARLING IMAngela US PROCEDURES Final Result * Hepatitis C Screening (04/26/2013) Hepatitis C Screening abstracted Historical Provider HEALTH MAINTENANCE Final Result from Last 3 Months or Most Recently Relevant to Health Maintenance Insurance BLUE CROSS - [place] MEDIC[place] AD[place]ANTAGE Care Teams Chief Technologist Relationship Specialty Start Date End Date Nakia Martínez MD [address] [place] [phone] PCP - General Internal Medicine 07/24/24
== END 2024-08-06 14:48 | disposition home or self-care (01) ==
LOC: HO.HCS 14:26
PROVIDERS: PCP Internal Medicine; Visit Provider Internal Medicine
DX: I25.10 Atherosclerotic heart disease of native coronary artery without angina pectoris (principal); I48.92 Unspecified atrial flutter; I10 Essential (primary) hypertension; D64.9 Anemia, unspecified
CPT/HCPCS: 99214; G2211

== ENCOUNTER → 2024-08-06 14:26 | Outpatient (BNVA) | payer MEDICARE, SELFPAY | PROVIDERS: PCP Internal Medicine; Visit Provider Internal Medicine | DX: I25.10 Atherosclerotic heart disease of native coronary artery without angina pectoris (principal); I48.92 Unspecified atrial flutter; I10 Essential (primary) hypertension; D64.9 Anemia, unspecified; Z79.01 Long term (current) use of anticoagulants; Z95.1 Presence of aortocoronary bypass graft | CPT/HCPCS: 99212 ==

== ENCOUNTER 2025-02-16 12:47 | Outpatient (AMB) | payer MEDICARE, SELFPAY ==
[2025-02-16 12:51] VITALS: BP 120/58; PULSE 67; BMI 26.3
--- NOTE | 2025-02-16 12:51 | MHC.OFFVIS ---
Vital Signs 02/16/25 12:51 Height 6 ft Weight 194 lb 0.108 oz BMI 26.3 BP 120/58 L Blood Pressure Location Lt brachial Position Sitting Pulse 67 Pulse Source Monitor Intake Visit Reasons: 6m follow up Allergies fluticasone (From Flonase) Allergy (Unknown, Verified 07/11/23 13:07) unknown lisinopril Adverse Reaction (Unknown, Verified 07/11/23 13:07) cough STEROIDS Adverse Reaction (Unknown, Uncoded 07/11/23 13:07) TACHYCARDIA Medication List - Last Reconciled 02/16/25 by Rich Mera MD amlodipine 10 mg PO DAILY atorvastatin 40 mg PO DAILY carvedilol (Coreg) 12.5 mg PO BID 90 days dulaglutide 0.75 mg subcut QWEEK Eliquis (apixaban) 5 mg PO BID NS isosorbide mononitrate ER 30 mg PO DAILY levothyroxine 88 mcg PO DAILY losartan 25 mg PO DAILY metformin 1,000 mg PO BID omega-3 fatty acids (Fish Oil Concentrate) 1,000 mg PO DAILY HPI Comments Details: Ian returns for follow-up. In the past, he was followed for paroxysmal atrial flutter. He was maintained on beta-blockers and Eliquis. He was having chest discomfort that led to further workup and eventually to cardiac catheterization followed by bypass surgery. Postoperatively, he had another hospitalization for duodenal ulcer and was significantly anemic down to almost 5. Anticoagulation was on hold for some time but then he is back on it. He has not taken it for quite some time with no issues. Since last seen, he states he is feeling good. No cardiac symptoms whatsoever. 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 Social History Household Members: Spouse Alcohol intake: unknown Patient Tobacco Use Status: Former Tobacco user Years Smoked: 40 Years Review of Systems Const Denies weakness ENT Denies dizziness Card Denies chest pain, Denies chest pain with activity, Denies syncope, Denies rapid heart rate, Denies pedal edema, Denies edema, Denies leg edema, Denies lightheadedness, Denies palpitations, Denies dyspnea, Denies dyspnea on exertion and Denies orthopnea Resp Denies cough, Denies dyspnea and Denies dyspnea on exertion GI Denies hematochezia and Denies change in stool character Musc Denies abnormal gait, Denies muscle cramps, Denies muscle weakness, Denies numbness, Denies radiating pain into limb and Denies tingling Neuro Denies abnormal gait, Denies dizziness, Denies syncope, Denies numbness, Denies tingling and Denies weakness Endo Denies palpitations Physical Exam Vital Signs: Last Vital Signs Pulse 67 02/16/25 12:51 BP 120/58 L 02/16/25 12:51 BMI result Body Mass Index 26.3 Const General: comfortable and no acute distress Orientation/consciousness: patient oriented x3 HEENT Other: Unremarkable Head: Yes normal to inspection Neck Neck: Yes normal visual inspection Chest Chest palpation & inspection: normal inspection of the chest Resp Auscultation: clear to auscultation bilaterally Cardio Palpation: normal PMI Heart sounds: S1 normal heart sound present, S2 normal heart sound present, no gallops, Murmur heart sound present systolic I/ and no rubs GI Palpation (GI): Soft to palpation Back/Spine/Pelvis Other: unremarkable Skin General skin exam: no rashes or lesions noted Neuro General: patient oriented x3 Extrem General: Yes normal to inspection Psych Mental Status: mental status grossly normal Office Procedures EKG Details: EKG with sinus rhythm at 67/Min; right bundle-branch block pattern; [place] [id number], Complete Assessment & Plan Assessment & Plan (1) Atherosclerotic cardiovascular disease: Code(s): I25.10 - Atherosclerotic heart disease of [place] coronary artery without angina pectoris Category: Medical Plan: Status post CABG x4, 11/2022. He also had closure of PFO that time. Due to history of duodenal ulcer, off aspirin and remain only on Eliquis. Continue statins. Last available LDL 45 mg/dL. (2) Paroxysmal atrial flutter: Code(s): I48.92 - Unspecified atrial flutter Category: Medical Plan: On beta-blockers/Eliquis. (3) Essential hypertension: Code(s): I10 - Essential (primary) hypertension Category: Medical Plan: In the past, we had change the metoprolol to carvedilol and it seems it is helping with blood pressure but he states he does get tired with it. Otherwise, on amlodipine, losartan, Imdur. No changes made today. (4) Anemia: Code(s): D64.9 - Anemia, unspecified Category: Medical Qualifiers: Anemia type: unspecified type Qualified Code(s): D64.9 - Anemia, unspecified Plan: Per [facility] notes, hemoglobin as low as 5. Underwent GI workup and was found to have duodenitis/duodenal ulcer. Also internal hemorrhoids and colonic polyps. Off aspirin. Was on pantoprazole, but not in his list anymore. Plan Discussion Notes During the visit, we discussed the patient's current management of hypertension with medications, emphasizing the importance of maintaining blood pressure control. Patient was informed and verbally consented to the use of an ambient scribe for clinic note documentation during this visit. Patient Instructions: - Continue taking medications as prescribed to manage blood pressure. - Monitor for any cardiac and report them if they worsen. Coding Level of Care Code Est Pt Level 4 (04186) Complex EM visit Add On G2211 Diagnoses Atherosclerotic cardiovascular disease I25.10 Paroxysmal atrial flutter I48.92 Essential hypertension I10 Anemia, unspecified type D64.9 Anemia type: unspecified type CPT Codes EKG - CPT: 56767-[id number], Complete ([id number])
--- OUTSIDE RECORDS SUMMARY | 2025-02-16 16:08 | XMS_ITS | Clinical Summary ---
Author Organization [facility] [address] [place] [address] [place] [phone] Phone Care Team Providers Care Marketing Intern Name Role Phone Nakia Martínez MD Primary Care Prov ider Allergies Active Allergy Reactions Criticality Noted Date Comments Fluticasone Propionate Flushing 10/09/2010 Lisinopril Other 09/14/2009 Medications amLODIPine (NORVASC) 2.5 mg tablet Take 1 Tablet by mouth. 07/08/19 24 Active losartan (COZAAR) 25 mg tablet Take 1 tablet (25 mg total) by mouth 1 (one) time each day. 09/24/19 24 Active apixaban (Eliquis) 5 mg tablet Take 1 tablet (5 mg total) by mouth 2 (two) times a day. 06/04/19 24 Active omega-3 acid ethyl esters (LOVAZA) 1 gram capsule Take by mouth. Activ e isosorbide mononitrate (IMDUR) 30 mg 24 hr tablet Take 1 tablet (30 mg total) by mouth. Active metFORMIN (GLUCOPHAGE) 500 mg tablet TAKE 2 TABLETS BY MOUTH TWICE DAILY WITH MEALS 360 tablet 3 08/11/19 25 Active levothyroxine (SYNTHROID, LEVOTHROID) 88 mcg tablet TAKE 1 TABLET BY MOUTH DAILY 90 tablet 09/24/19 25 Active Trulicity 0.75 mg/0.5 mL pen injector injection ADMINISTER 0.75 MG UNDER THE SKIN EVERY 7 DAYS 6 mL 1 09/29/19 25 Active atorvastatin (LIPITOR) 40 mg tablet TAKE 1 TABLET(40 MG) BY MOUTH 1 TIME EACH DAY 90 tablet 2 12/26/19 25 Active carvediloL (COREG) 12.5 mg tablet Take 1 tablet (12.5 mg total) by mouth 2 (two) times a day with meals. Active metoprolol tartrate (LOPRESSOR) 50 mg tablet Take 1 tablet (50 mg total) by mouth 2 (two) times a day. 06/12/19 24 025 Discontinued pantoprazole (PROTONIX) 40 mg EC tablet Take 1 tablet (40 mg total) by mouth 2 (two) times a day. 01/06/20 23 025 Discontinued OneTouch Ultra Test test strip USE TO TEST BLOOD SUGAR 1 TO 2 TIMES A DAY 08/08/19 22 025 Discontinued lancets 33 gauge misc Apply 1 Each topically daily. 10/21/19 22 025 Discontinued Active Problems Problem Noted Date Diagnosed Date Presence of aortocoronary bypass graft 3 Stage 3a chronic kidney disease ([facility] V24, CM /[facility] V28) 05/07/2022 Overview (01/28/2024): HTN Peripheral neuropathy 12/27/2020 Tinea unguium 12/27/2020 Simple cyst of kidney 07/16/2019 Overview (01/28/2024): Followed by urology (Dr. York) Ascending aorta dilatation ([facility] V24) 019 Overview (01/28/2024): CT [...] unchanged. Rec rpt 1 year. Atrial flutter ([facility] V24, CMS/HCC V28) 2014 Overview (01/28/2024): Dr Mera Assessment & Plan (07/24/2024 1:15 PM EDT): Preglaucoma 10/05/2013 Overview (01/28/2024): Dr Power note 09/21/2003 Hyperuricemia 02/02/2013 DM (diabetes mellitus), type 2 with peripheral vascular complications ([facility]/HCC V24, [facility] V28) 07/17/2012 Assessment & Plan (01/26/2025 11:44 AM EDT): Good control of diabetes, last A1c was 6.1. Patient will continue with yearly Podiatric and Ophthomologic evaluations. Continue metformin, trulicity. We will check a hemoglobin A1c before his next visit. Patient will follow up in 6 months Assessment & Plan (07/24/2024 11:15 AM EDT): Orders: Hemoglobin A1c; Future Subclinical hypothyroidism 03/23/2010 Overview (01/28/2024): TSH 14.39 02/2010, on Lt-4 replacement therapy Assessment & Plan (07/24/2024 11:15 AM EDT): Orders: Thyroid stimulating hormone; Future Erectile dysfunction 09/04/2008 Overview (01/28/2024): Followed by urology in the past Nephrolithiasis 03/27/2007 Diabetes mellitus with neuro logical manifestations ([facility] V24, [facility] V28) 07/24/2005 Overview (01/28/2024): Sees shop assistant Dr. Armendariz (last visit 07/13/13) Essential hypertension, benign 07/24/2005 Assessment & Plan (01/26/2025 11:44 AM EDT): The patient's antihypertensive regimen is based on their underlying medical issues. At the time of this visit, the blood pressure is not well controlled on carvedilol, losartan, and amlodipine. The patient is instructed to follow a low sodium diet and to follow up in 6 months. Assessment & Plan (07/24/2024 1:15 PM EDT): Hyperlipidemia 07/24/2005 Assessment & Plan (01/26/2025 11:44 AM EDT): Given the patients cardiac risk profile, the patient requires an LDL cholesterol of less than 70. I have instructed the patient on the principles of a low cholesterol diet and the importance of regular exercise, continue Atorvastatin. Assessment & Plan (07/24/2024 1:15 PM EDT): Encounters Date Type Department Care Team Description 01/26/2025 11:00 AM EDT Office Visit Adult Medicine [address] [phone] Nakia Salguero MD Adult general medical examination (Primary Dx); DM (diabetes mellitus), type 2 with peripheral vascular complications (CMS/HCC V24, CMS/HCC V28); Essential hypertension, benign; Mixed hyperlipidemia from Last 3 Months Immunizations Immunization Administration Dates Next Due H1N1 Inj Preservative Free 03/28/2009 Influenza trivalent, 0.5mL ( Fluzone High-dose) 65yo and older 02/01/2022,01/23/2021,01/18/2020,03/08,01/06/2018,06/17/2016 Influenza trivalent, with pr eservative (Fluzone; Afluria) 6mo and older 02/04/2020,12/22/2018,12/27/2017,02/20,02/10/2016,03/09/2014,02/02/2013 ,04/08/2012,03/06/2011,02/27/2010,/10/2008,03/05/2008,03/27/2007, 6 Pfizer SARS-CoV-2 COVID-19, mRNA, LNP-S, preservative [...] transverse, sent for BE. COLONOSCOPY 04/23/2011 PROCEDURE: RI COLONOSCOPY FLX DX W/COLLJ SPEC WHEN PFRMD; COMMENT: normal to the cecum CORONARY ARTERY BYPASS GRAFT 11/24/2022 PROCEDURE: HISTORICAL CABG; COMMENT: Dr. Ramos, [facility] Bypass Medical History Medical History Date Comments Nephrolithiasis 03/27/2007 DX:Nephrolithias is Diabetes mellitus type II, c ontrolled ([facility] V24, [facility] V28) 07/24/2005 DX:Diabetes mellitus type I I, controlled ([facility]) Essential hypertension, benign 07/24/2005 D X:Essential hypertension, benign Hypothyroidism 03/23/2010 DX:Hypothyroidis m Pulmonary nodules 09/03/2017 DX:Pulmonary n odules DM (diabetes mellitus), type 2 with peripheral vascular complications ([facility] V24, [facility] V28) 07/17/2012 DX:DM (diabetes mellitus), type 2 with peripheral vascular complications ([facility]); COMMENT: Erectile dysfunction. Peripheral neuropathy [...] 0 04/22[birth year]1963 - 04/22/1996 Smokeless Tobacco: Never Tobacco Cessation:Counseling Given: Not Answered Alcohol Use Standard Drinks/Week Comments No 0 [...] care for your loved ones. For example, children's entertainer or elderly care for an older adult? [...] Date Recorded What is your living situation? Unrecognized valu e 07/23/2024 Sex and Gender Information Value Date Recorded Sex Assigned at Not on file Legal Sex Male 3:31 AM EST Gender Identity Not on file Sexual Orientation Not on file Obstetrics History Last Filed Vital Signs Vital Sign Reading Time Taken Comments Blood Pressure 127/61 01/26/2025 11:06 AM EDT Pulse 65 01/26/2025 11:06 AM EDT Temperature 36.3 C (97.4 F) 01/26/2025 11:06 AM EDT Respiratory Rate 14 01/26/2025 11:0 6 AM EDT Oxygen Saturation 97% 01/26/2025 11: 06 AM EDT Inhaled Oxygen Concentration - - Weight 87.5 kg (192 lb 12.8 oz) 025 11:06 AM EDT Height 182.9 cm (6') 01/26/2025 11:06 AM EDT Body Mass Index 26.15 01/26/2025 11:06 AM EDT Plan of Treatment Upcoming Encounters Date Type Department Care Team (Late st Contact Info) Description 07/29/2025 11:00 AM EDT Office Visit Adult Medicine [address] [phone] Nakia Martínez MD [address] [place] [address] Health Maintenance Due Date Last Done Comments Medicare Annual Wellness Visit 03/31/2022 COVID-19 Vaccine ( season) 2024 03/07/2023, 02/23/2022, 02/14/2021, Additional history exists Influenza Vaccine (#1) 2024 , 03/07/2023, 02/01/2022, Additional history exists Diabetes: Annual Foot Exam 01/29/2025 01/30/2024 Diabetes: Annual Urine Albumin-Creatinine Ratio (uACR) 05/27/2025 05/27/2024, 08/13/2023 Diabetes: Blood Sugar Control Test (HGBA1C) 06/29/2025 12/30/2024, 05/27/2024, 10/28/2023, Additional history exists Social Influencers of Health Screening 07/23/2025 07/23/2024 Falls Risk Assessment 07/24/2025 07/24/2024 Diabetes: Annual Retina Eye Exam 09/29/2025 09/29/2024, 04/25/2024 Diabetes: Annual GFR (Glomerular Filtration Rate) 12/30/2025 12/30/2024, 05/27/2024, 10/28/2023, Additional history exists Hypertension/CHF/CAD Annual BMP Blood Test 12/30/2025 12/30/2024, 05/27/2024, 10/28/2023, Additional history exists Cholesterol Screening (Lipid Panel) 05/27/2029 05/27/2024, 10/28/2023, 10/28/2023 DTaP,Tdap,and Td Vaccines (5 - Td or Tdap) 11/04/2033 11/05/2023, 04/08/2012, 12/29/2001, Additional history exists Hepatitis C Screening Completed 04/26/2013 Pneumococcal Vaccine: 50+ Years Completed 05/06/2017, 12/14/2014, 03/27/2007 Abdominal Aortic Aneurysm (AAA) Screen Completed 05/15/2017, 05/15/2017 Zoster Vaccines Completed 07/29/2023, 04/22, 08/26/2012 RSV Immunization Adult Patients Completed 08/15/2023 Depression Screening Completed 07/23/2024 Colorectal Cancer Screening: FIT-DNA (Cologuard) Discontinued HIB Vaccines Aged Out No longer eligi [...] Procedure Name Priority Date/Time Associated Diagnosis Comments THYROID STIMULATING HORMONE Routine 12/30/2024 12:21 PM EDT Subclinical hypothyroidism RENAL FUNCTION PANEL Routine 12/30/2024 12:21 PM EDT Chronic kidney disease (CKD) stage G3b/A1, moderately decreased glomerular filtration rate (GFR) between 30-44 mL/min/1.73 square meter and albuminuria creatinine ratio les* ([facility] V24, [facility] V28) Benign hypertensive kidney disease with chronic kidney disease stage I through stage IV, or unspecified(403.10) Nephrolithiasis Mixed hyperlipidemia PROTEIN AND CREATININE WITH RATIO, URINE Routine 12/30/2024 12:21 PM EDT Chronic kidney disease (CKD) stage G3b/A1, moderately decreased glomerular filtration rate (GFR) between 30-44 mL/min/1.73 square meter and albuminuria creatinine ratio les* ([facility] V24, CMS/[facility] V28) Benign hypertensive kidney disease with chronic kidney disease stage I through stage IV, or unspecified(403.10) Nephrolithiasis Mixed hyperlipidemia HEMOGLOBIN A1C Routine 12/30/2024 12:21 PM EDT DM (diabetes mellitus), type 2 with peripheral vascular complications ([facility] V24, [facility] V28) EXTERNAL DIABETIC RETINA EYE EXAM 09/29/2024 MICROALBUMIN CREATININE URINE RATIO Routine 05/27/2024 2:50 PM EST Diabetes mellitus with neurological manifestations ([facility] V24, [facility] V28) Atrial flutter, unspecified type ([facility] V24, [facility] V28) Essential hypertension, benign DM [...] Recently Relevant to Health Maintenance Results * (ABNORMAL) Protein and creatinine with ratio, urine (12/30/2024 12:21 PM EDT) Protein, Urine 82 mg/dL LAB CHEMISTRY METHOD 12/30/2024 6:22 PM EDT [facility] Prot/Creat, Ur 0.31(H) <=0.20 mg/mg creat LAB CHEMISTRY METHOD 12/30/2024 6:22 PM EDT [facility] Creatinine, Urine 263.0 mg/dL LAB CHEMISTRY METHOD 12/30/2024 6:22 PM EDT [facility] Urine Urine specimen obtained by clean catch procedure / Unknown Non-blood Collection / Unknown 12/30/2024 12:21 PM EDT 12/30/2024 12:21 PM EDT us Ronnie Sahu MD LAB URINE ORDERABLES Final Resu lt [facility] [address] [place] [address], [place] [phone] * Thyroid stimulating hormone (12/30/2024 12:21 PM EDT) [facility] TSH 2.29 0.40 - 4.00 mcIU/mL LAB CHEMISTRY METHOD 12/30/2024 5:47 PM EDT [facility] Blood Venous blood specimen / Unknown Venipuncture / Unknown 12/30/2024 12:21 PM EDT 12/30/2024 12:21 PM EDT Nakia Martínez MD LAB BLOOD ORDERABL ES Final Result Performing Organization Address City/[facility]/ZIP Co de Phone Number [facility] [address] [place] [address], [place] [phone] * Hemoglobin A1c (12/30/2024 12:21 PM EDT) [facility] Hemoglobin A1C 6.1 <6.5 % LAB CHEMISTRY METHOD 12/30/2024 9:37 PM EDT [facility] Mean Bld Glu Estim. 128 mg/dL LAB CHEMISTRY METHOD 12/30/2024 9:37 PM EDT [facility] Blood Venous blood specimen / Unknown Venipuncture / Unknown 12/30/2024 12:21 PM EDT 12/30/2024 12:21 PM EDT Nakia Martínez MD LAB BLOOD ORDERABL ES Final Result [facility] [address] [place] [address], [place] [phone] * (ABNORMAL) Renal function panel (12/30/2024 12:21 PM EDT) [facility] Sodium 137 133 - 145 mmol/L LAB CHEMISTRY METHOD 12/30/2024 4:50 PM EDT [facility] Potassium 4.1 3.5 - 5.5 mmol/L LAB CHEMISTRY METHOD 12/30/2024 4:50 PM [facility] Chloride 107 96 - 110 mmol/L LAB CHEMISTRY METHOD 12/30/2024 4:50 PM [facility] CO2 24 21 - 32 mmol/L LAB CHEMISTRY METHOD 12/30/2024 4:50 PM [facility] Anion Gap 6 3 - 11 LAB CHEMISTRY METHOD 12/30/2024 4:50 PM [facility] Glucose 106(H) 70 - 100 mg/dL LAB CHEMISTRY METHOD 12/30/2024 4:50 PM [facility] BUN 30(H) 5 - 25 mg/dL LAB CHEMISTRY METHOD 12/30/2024 4:50 PM [facility] Creatinine 1.87(H) 0.70 - 1.30 mg/dL LAB CHEMISTRY METHOD 12/30/2024 4:50 PM [facility] eGFR 37(L) >=60 mL/min/1. 73m2 LAB CHEMISTRY METHOD 12/30/2024 4:50 PM [facility] Comment:Calculation based on the Chronic Kidney Disease Epidemiology Collaboration (CKD-EPI) equation refit without adjustment for race. BUN/Creatinine Ratio 16.0 LAB CHEMISTRY METHOD 12/30/2024 4:50 PM [facility] Albumin 3.9 3.2 - 5.0 g/dL LAB CHEMISTRY METHOD 12/30/2024 4:50 PM [facility] Calcium 8.9 8.5 - 10.5 mg/dL LAB CHEMISTRY METHOD 12/30/2024 4:50 PM [facility] Phosphorus 4.0 2.5 - 4.5 mg/dL LAB CHEMISTRY METHOD 12/30/2024 4:50 PM [facility] Blood Venous blood specimen / Unknown Venipuncture / Unknown 12/30/2024 12:21 PM EDT 12/30/2024 12:21 PM EDT us Ronnie Sahu MD LAB BLOOD ORDERABLES Final Resu lt [facility] [address] [place] [address], [place] [phone] * External Diabetic Retina Eye Exam Report (09/29/2024) Anatomical Region Laterality Modality Ultrasound us Provider [facility] US PROCEDURES Final Result * (ABNORMAL) Lipid panel with reflex to direct LDL (05/27/2024 2:50 PM EST) Cholesterol 102 0 - 200 mg/dL LAB CHEMISTRY METHOD 05/27/2024 7:28 PM [facility] Triglycerides 169(H) 0 - 150 mg/dL LAB CHEMISTRY METHOD 05/27/2024 7:28 PM [facility] HDL 26(L) >=40 mg/dL LAB CHEMISTRY METHOD 05/27/2024 7:28 PM EST [facility] LDL Calculated 42 0 - 100 mg/dL LAB CHEMISTRY METHOD 05/27/2024 7:28 PM EST [facility] VLDL Cholesterol Jonah 33.8 mg/dL LAB CHEMISTRY METHOD 05/27/2024 7:28 PM [facility] Non HDL Chol. (LDL+VLDL) 76 <145 mg/dL LAB CHEMISTRY METHOD 05/27/2024 7:28 PM [facility] Chol/HDL Ratio 3.9 0.0 - 4.4 LAB CHEMISTRY METHOD 05/27/2024 7:28 PM [facility] Blood Venous blood specimen / Unknown Venipuncture / Unknown 05/27/2024 2:50 PM EST 05/27/2024 2:50 PM EST us Chely DARLING LAB BLOOD ORDERABLES Final Resu lt [facility] [address] [place] [address], [place] [phone] * (ABNORMAL) Microalbumin creatinine urine ratio (05/27/2024 2:50 PM EST) Creatinine, Urine 172.0 mg/dL LAB CHEMISTRY METHOD 05/27/2024 7:54 PM EST [facility] Microalb, Ur 543.0(H) 0.0 - 29.0 mg/L LAB CHEMISTRY METHOD 05/27/2024 7:54 PM EST [facility] Comment:Results verified by repeat testing Microalb/Crea t Ratio 316(H) <30 mg/g creat LAB CHEMISTRY METHOD 05/27/2024 7:54 PM EST [facility] Urine Urine specimen obtained by clean catch procedure / Unknown Non-blood Collection / Unknown 05/27/2024 2:50 PM EST 05/27/2024 2:50 PM EST us Chely DARLING LAB URINE ORDERABLES Final Resu lt [facility] [address] [place] [address], [place] [phone] * US ABDOMINAL AORTA REAL TIME SCREEN [...] of abdominal aortic aneurysm. Procedure Note Emily Donnelly DO - 05/27/2023 ULTRASOUND ABDOMINAL AORTA CLINICAL [...] No sonographic evidence of abdominal aortic aneurysm. us Chely DARLING IMG US PROCEDURES Final Result * Hepatitis C Screening (04/26/2013) Hepatitis C Screening abstracted us Historical Provider HEALTH MAINTENANCE Final Result from Last 3 Months or Most Recently Relevant to Health Maintenance Insurance [employer] - [place] MEDICARE ADVANTAGE Care Teams Marketing Intern Relationship Specialty Start Date End Date Nakia Martínez MD [address] [place] [phone] PCP - General Internal Medicine 07/24/24
--- OUTSIDE RECORDS SUMMARY | 2025-02-16 16:08 | XMS_ITS | Clinical Summary ---
Author Organization [facility] Address [address] [place] [phone] Phone Care Team Providers Care Social Worker Name Role Phone Nakia Tom MD Primary [...] 1 (one) time each day 10/31/2022 Active losartan (COZAAR) 25 MG tablet TAKE [...] day Do not crush or chew. Active carvedilol (COREG) 12.5 MG tablet Take 12.5 mg by mouth in the morning and 12.5 mg in the evening. Take with meals. Active Active Problems Problem Noted Date Diagnosed [...] diabetes melli tus 07/24/2005 Overview (01/07/2023): Sees associate of science in nursing Dr. Armendariz (last visit 07/13/13) Nephrolithiasis Hypertensive chronic kidney disease Hyperlipidemia Resolved Problems Problem Noted Date Diagnosed Date Resolved Date Stage 3a chronic kidney disease 01/04/2025 Overview (01/15/2022): HTN Encounters Date Type Department Care Team Description 01/04/2025 2:00 PM EDT Office Visit [facility] [address] [phone] Ronnie Sahu MD Stage 3b chronic kidney disease (HCC) (Primary Dx); Hypertensive chronic kidney disease; Nephrolithiasis; Type 2 diabetes mellitus with diabetic chronic kidney disease (HCC) 12/30/2024 Orders Only [facility] [address] [address] Ronnie Sahu MD from Last 3 Months Immunizations Immunization Administration [...] Sign Reading Time Taken Comments Blood Pressure 110/64 01/04/2025 2:00 PM EDT Pulse 65 01/04/2025 2:00 PM EDT Temperature - - Respiratory Rate - - Oxygen Saturation 98% 06/01/2024 1:58 PM EST Inhaled Oxygen Concentration - - Weight 88.2 kg (194 lb 6.4 oz) 01/04/2025 2:00 P M EDT Height 182.9 cm (6') 05/09/2020 12:01 PM EST Body Mass Index 26.37 05/09/2020 12:01 PM EST Plan of Treatment Upcoming Encounters Date Type Department Care Team (Late st Contact Info) Description 08/02/2025 2:30 PM EDT Office Visit [facility] [address] [phone] Ronnie Sahu MD [address] [phone] Health Maintenance Due Date Last Done Comments Colorectal Cancer Screening: Annual FOBT 1998 Colorectal Cancer Screening: Colonoscopy 1998 Colorectal Cancer Screening: Sigmoidoscopy 1998 Diabetes: Ophthalmology Exam 05/22/2020 11/12/2011, 04/26/2010, 02/04/2009, Additional history exists Diabetes: Pedal Pulse Checked 05/22/2020 Diabetes: Sensory Foot Exam 05/22/2020 Diabetes: Visual Foot Exam 05/22/2020 Influenza Vaccine (#1) 2024 4, 02/01/2022, 01/23/2021, Additional history exists Diabetes: Hemoglobin A1C 03/31/2025 025, 12/30/2024, 05/27/2024, Additional history exists Pneumococcal Vaccine: 50+ Years Completed 05/06/2017, 12/14/2014, 03/27/2007 Pneumococcal Vaccine: Peds (0 to 5 Years) and At-Risk Patients (6 to 49 Years) Discontinued 05/06/2017, 12/14/2014, 03/27/2007 Hepatitis B Vaccine Aged Out No longe r eligible based on patient's age to complete this topic Procedures Procedure Name Priority Date/Time Associated Diagnosis Comments PROTEIN / CREATININE RATIO, URINE Routine 12/30/2024 12:21 PM EDT RENAL FUNCTION PANEL Routine 12/30/2024 12:21 PM EDT from Last 3 Months Results * (ABNORMAL) Protein, Total, Random Urine w/Creatinine (Protein/Creat Ratio) (12/30/2024 12:21 PM EDT) Protein, Ur 82 mg/dL [facility] Urine Protein/Creati nine Ratio 0.31(H) <=0.20 mg/mg creat [facility] Creatinine, Urine 263.0 mg/dL [facility] 12/30/2024 12:2 1 PM EDT 12/30/2024 2:05 PM EDT us Ronnie Sahu MD LAB URINE ORDERABLES Final Resu lt [facility] [address] [place] [address] * (ABNORMAL) Renal Function Panel (12/30/2024 12:21 PM EDT) [facility] Sodium 137 133 - 145 mmol/L [facility] Potassium 4.1 3.5 - 5.5 mmol/L [facility] Chloride 107 96 - 110 mmol/L [facility] Bicarbonate (CO2) 24 21 - 32 mmol/L [facility] Anion Gap 6 3 - 11 [facility] Glucose 106(H) 70 - 100 mg/dL [facility] BUN 30(H) 5 - 25 mg/dL [facility] Creatinine Serum 1.87(H) 0.70 - 1.30 mg/dL [facility] eGFR 37(L) >=60 mL/min/1. 73m2 [facility] Comment:Calculation based on the Chronic Kidney Disease Epidemiology Collaboration (CKD-EPI) equation refit without adjustment for race. BUN/Creatinine Ratio 16.0 [facility] Albumin 3.9 3.2 - 5.0 g/dL [facility] Calcium 8.9 8.5 - 10.5 mg/dL [facility] Phosphorus 4.0 2.5 - 4.5 mg/dL [facility] 12/30/2024 12:2 1 PM EDT 12/30/2024 2:04 PM EDT us Ronnie Sahu MD LAB BLOOD ORDERABLES Final Resu lt [facility] [address] [place] [address] from Last 3 Months Insurance [facility] PPO [employer]([id number]) [facility] PPO [id number]([id number]) Care Teams Social Worker Relationship Specialty Start Date End Date Nakia Tom MD [address] [place] [address] PCP - General 01/15/22
--- OUTSIDE RECORDS SUMMARY | 2025-02-16 16:08 | XMS_ITS | Patient Health Record ---
Author Organization [facility] Address [address] [place] [address] Care Team Providers Care Continuous Process Machine Operator Name Role Phone Nakia Matthew Primary Care Provider Unava ilable Black, Whitney Unavailable [phone] Allergies Allergen (clinical drug ingredient) Drug/Non Drug Allergy documented on EMR Reaction Allergy Type Onset Date Status fluticasone Flonase rapid heart beat Drug Allergy Active Results Component Value Reference Range Notes HEMOGLOBIN A1C (GLYCOHEMOGLO BIN) Reviewed date:06/01/2024 11:24:26 AM Interpretation: Performing Lab: Notes/Report: HEMOGLOBIN A1C % (HH) 6.3 HEMOGLOBIN A1C (GLYCOHEMOGLO BIN) Reviewed date:01/25/2025 11:01:57 AM Interpretation: Performing Lab: Notes/Report: HEMOGLOBIN A1C % (HH) 6.1 Reason For Referral No Information Medications Medication SIG (Take, Route, Frequency, Duration) Notes Start Date End Date Status Isosorbide Dinitrate 30 MG 1 tablet Orally Twice a day Not-Taking Metoprolol & Diet Manage Prod 100 mg twice a day 50 mgs 2x a day Not-Taking Ciclopirox Olamine 0.77 % 1 application Externally Twice a day to skin of feet including between the toes; Duration: 30 days Active Trulicity 0.75 MG/0.5ML as directed Subcutaneous Active One Touch Delica Lancets Not-Taking Simvastatin Not-Taki ng glipiZIDE 5 MG Orally twice a day Not-Taking Ciclopirox Olamine 0.77 % 1 application to affected area Externally Twice a day; Duration: 30 days 01/30/2018 Not-Taking Vitamin D Not-Taking Apixaban 5 MG as directed Orally Not-Taking amLODIPine Besylate 10 MG 1 tablet Orally Once a day at supper Active Diovan Not-Taking Pantoprazole Sodium 40 MG 1 tablet 1/2 to 1 hour before morning meal Orally Once a day Not-Taking Ciclopirox Olamine 0.77 % 1 application to affected area Externally Twice a day; Duration: 30days 07/09/2011 Not-Taking Carvedilol 12.5 MG 1 tablet with food Orally Twice a day Active SITagliptin Phosphate Not-Taking glipiZIDE Not-Taking Aspirin Not-Taking Januvia 50 MG 2 tablets Orally Once a day; Duration: 30 day(s) Not-Taking metFORMIN HCl 500 MG Orally twice a day Active Losartan Potassium 25 MG as directed Orally Once a day Active Levothyroxine Sodium 88 MCG Orally Once a day, one hour efore breakfast Active Fish Oil Active Eliquis 5 MG Orally twice a day Active Umecta 40 % as directed Externally Not-Taking Atorvastatin Calcium 20 MG 1 tablet Orally Once a day Active Lipitor Not-Taking Immunizations Vaccine Route Administration Date Status Comme nts COVID-19 Pfizer BioNTech Vaccine Unknown 02/14/2021 Administered 1st Dose: 06/29/20 Second Dose: 07/20/20 Influenza Unknown 08/01/2015 Pending pt didn't get flu shot Influenza Unknown 02/10/2016 Administered Influenza Unknown 02/21/2016 Administered Influenza Unknown 12/27/2017 Administered Influenza Unknown 12/22/2018 Administered Influenza Unknown 02/04/2020 Administered Influenza Unknown 02/01/2022 Administered Influenza Unknown 02/21/2024 Administered Pneumococcal Unknown 12/14/2014 Administered Social History Tobacco Use: Social History Observation Description Date Details (start date - stop date) Never Smoker NA - NA Tobacco use other than smoking: Question Answer Notes Are you an other tobacco user? No Tobacco Control (Standard) Question Answer Notes Tobacco use: Nonsmoker Additional Findings: Tobacco non-user Current no nsmoker AUDIT-C (Standard) Question Answer Notes Did you have a drink containing alcohol in the p ast year? No Points 0 Interpretation Negative Problems Problem Type SNOMED Code ICD Code Onset Dates Problem Status W/U Status Risk Notes Problem Polyneuropathy due to type 2 diabetes mellitus (046873277) Type 2 diabetes mellitus with diabetic polyneuropathy (E11.42) Active confirmed Vital Signs Blood pressure diastolic 75 mm Hg 01/25/2025 Height 5ft 11in in 01/25/2025 Blood pressure systolic 125 mm Hg 01/25/2025 Weight 187 lbs 01/25/2025 BMI 26.08 kg/m2 01/25/2025 Procedures Procedure Date Ordered Date Performed Result Body Sit e 60371-XLLONCH NAIL, 6 OR MORE 06/01/2024 N/A 14446-UUMK SKIN LESIONS, 2 TO 4 06/01/2024 N/A 56107-YPIOVHH NAIL, 6 OR MORE 09/28/2024 N/A 19018-KEJE SKIN LESIONS, 2 TO 4 09/28/2024 N/A 71485-CIGSUEG NAIL, 6 OR MORE 01/25/2025 N/A 10100-ZNRP SKIN LESIONS, 2 TO 4 01/25/2025 N/A Encounters Encounter Location Date Provider Diagnosis [address] [address] 06/01/2024 Whitney Black Tinea pedis of both feet B35.3 ; Other hammer toe(s) (acquired), left foot M20.42 ; Type 2 diabetes mellitus with diabetic polyneuropathy E11.42 ; Tinea unguium B35.1 ; Pain in left toe(s) M79.675 ; Arthritis of joint of lesser toe, left M19.072 and Subluxation of metatarsophalangeal joint of toe, initial encounter S93.149A [address] [address] 09/28/2024 Whitney Black Type 2 diabetes rhona itus with diabetic polyneuropathy E11.42 and Tinea unguium B35.[address] [address] 01/25/2025 Whitney Black Type 2 diabetes rhona itus with diabetic polyneuropathy E11.42 and Tinea unguium B35.1 Assessments Encounter Date Diagnosis (ICD Code) Assessment Notes Treatment Notes Treatment Clinical Notes Section Notes 06/01/2024 Other hammer toe(s) (acquired), left foot (ICD-10 - M20.42) 06/01/2024 Tinea pedis of both feet (ICD-10 - B35.3) 09/28/2024 Tinea unguium (ICD-1 0 - B35.1) 09/28/2024 Type 2 diabetes mellitus with diabetic polyneuropathy (ICD-10 - E11.42) 01/25/2025 Type 2 diabetes mellitus with diabetic polyneuropathy (ICD-10 - E11.42) 01/25/2025 Tinea unguium (ICD-1 0 - B35.1) 06/01/2024 Type 2 diabetes mellitus with diabetic polyneuropathy (ICD-10 - E11.42) 06/01/2024 Tinea unguium (ICD-1 0 - B35.1) 06/01/2024 Pain in left toe(s) (ICD-10 - M79.675) 06/01/2024 Arthritis of joint o f lesser toe, left (ICD-10 - M19.072) 06/01/2024 Subluxation of metatarsophalangeal joint of toe, initial encounter (ICD-10 - S93.149A) Plan Of Treatment Pending Test Test Name Order Date 28114-RHQHAOB NAIL, 6 OR MORE 07/09/2011 21461-DDMPXCH NAIL, 6 OR MORE 07/07/2012 07695-LOPGRKV NAIL, 6 OR MORE 07/13/2013 28158-ZQEZCXI NAIL, 6 OR MORE 01/30/2018 70363-KTSFDFL NAIL, 6 OR MORE 07/31/2018 69923-UZCZFTC NAIL, 6 OR MORE 01/01/2019 99987-VHFCDGB NAIL, 6 OR MORE 06/04/2019 20397-OVXYZKU NAIL, 6 OR MORE 03/03/2020 82004-PAABDOT NAIL, 6 OR MORE 06/09/2020 77177-RAABFXO NAIL, 6 OR MORE 12/03/2019 54670-UNUVOUR NAIL, 6 OR MORE 09/08/2020 60684-ZYKMLAY NAIL, 6 OR MORE 12/19/2020 34344-RQEPPAO NAIL, 6 OR MORE 03/23/2021 31960-FSPNUVK NAIL, 6 OR MORE 06/29/2021 51667-LHGHXZR NAIL, 6 OR MORE 10/30/2021 18619-OSMEIYD NAIL, 6 OR MORE 03/01/2022 33298-VSZBQSV NAIL, 6 OR MORE 06/28/2022 50433-DRJUVSM NAIL, 6 OR MORE 01/30/2024 47994-VFCUXHC NAIL, 6 OR MORE 06/01/2024 72527-HJYSGLD NAIL, 6 OR MORE 09/28/2024 46915-NRFXZMO NAIL, 6 OR MORE 01/25/2025 55097-AVJLUKW NAIL, 1-5 07/13/2013 47351-ULODJCE NAIL, 1-5 08/09/2014 07569- Debride <25 sq cm 07/13/2013 23131-EGFE SKIN LESIONS, 2 TO 4 08/01/19 16 57610-HQZO SKIN LESIONS, 2 TO 4 01/02/20 19 59000-GIEE SKIN LESIONS, 2 TO 4 01/31/20 18 10325-YRPE SKIN LESIONS, 2 TO 4 08/01/19 19 25879-UEDX SKIN LESIONS, 2 TO 4 07/31/19 17 57857-KSUX SKIN LESIONS, 2 TO 4 08/02/19 18 90369-YCYO SKIN LESIONS, 2 TO 4 06/30/19 22 07856-LGJC SKIN LESIONS, 2 TO 4 03/23/20 21 50715-DGNK SKIN LESIONS, 2 TO 4 12/20/19 21 22228-PXEH SKIN LESIONS, 2 TO 4 03/03/20 20 00869-JFHX SKIN LESIONS, 2 TO 4 06/09/19 21 02940-NCJW SKIN LESIONS, 2 TO 4 09/09/19 21 16433-WAOB SKIN LESIONS, 2 TO 4 12/03/19 20 39633-AVYU SKIN LESIONS, 2 TO 4 06/04/19 20 20855-VTIT SKIN LESIONS, 2 TO 4 01/26/20 25 22187-WYKN SKIN LESIONS, 2 TO 4 09/29/19 25 76697-WKBM SKIN LESIONS, 2 TO 4 06/01/19 25 03503-UFYZ SKIN LESIONS, 2 TO 4 01/30/20 24 56389-OUWG SKIN LESIONS, 2 TO 4 06/29/19 23 48189-DQFE SKIN LESIONS, 2 TO 4 03/01/20 22 19547-BFCR SKIN LESIONS, 2 TO 4 10/31/19 22 I7431-ZWKXBNDR DYSTROPHIC NAILS ANY # R8310-SPLNQIKC DYSTROPHIC NAILS ANY # N5356-XFMSQXJP DYSTROPHIC NAILS ANY # U9496-AXGNUFSL DYSTROPHIC NAILS ANY # Next Appt Details Provider Name:Whitney Armendariz , 06/03/2025 11:30:00 AM, [address] [facility], [place], [address], Insurance Providers Payer Name Payer Address Payer Phone Subscriber Number Group Number Insured Name Patient Relationship to Insured Coverage Start Date Coverage End Date [employer] 65 Medicare Preferred [address] [place] [address] [phone] [id number] Ian Chapman Self - patient is the insured Medical (General) History Medical History History ICD Code hypertension Cholesterol diabetic type 2 nephrolithiasis Hypothyroidism Neuropathy quad bipass Other hammer toe(s) (acquired), left kameron t M20.42 Arthritis of joint of lesser toe, left M 19.072 Surgical History Surgery Date(Month/Year) hernia quad bypass 03/2023 dental surgery 10/14 Hospitalization History Reason Date(Month/Year) [facility] blood loss from ulcer 03/2023 [facility]- quad bypass 03/2023 [place], 3 days, [place], atrial flutter 07/09 15
--- OUTSIDE RECORDS SUMMARY | 2025-02-16 16:08 | XMS_ITS ---
Author Name [facility] Organization Unknown Care Team Organization Name Specialty Phone Email Start Date End Da [facility] Termed, PROVIDER Primary Care 02/27/202211/20
== END 2025-02-16 13:14 | disposition home or self-care (01) ==
LOC: HO.HCS 12:48
PROVIDERS: PCP Internal Medicine; Visit Provider Internal Medicine
DX: I25.10 Atherosclerotic heart disease of native coronary artery without angina pectoris (principal); I48.92 Unspecified atrial flutter; I10 Essential (primary) hypertension; D64.9 Anemia, unspecified
CPT/HCPCS: 93010; 99214; G2211

== ENCOUNTER → 2025-02-16 12:47 | Outpatient (BNVA) | payer MEDICARE, SELFPAY | PROVIDERS: PCP Internal Medicine; Visit Provider Internal Medicine | DX: I25.10 Atherosclerotic heart disease of native coronary artery without angina pectoris (principal); I48.92 Unspecified atrial flutter; I10 Essential (primary) hypertension; D64.9 Anemia, unspecified; I45.10 Unspecified right bundle-branch block; R94.31 Abnormal electrocardiogram [ECG] [EKG] | CPT/HCPCS: 93005; 99212 ==